=== PATIENT | female | born 1940 | race Caucasian/White ===

== ENCOUNTER → 2020-02-29 13:11 | Outpatient (BNVA) | payer MEDICARE, OTHER, SELFPAY | PROVIDERS: Family Provider Internal Medicine; PCP Internal Medicine; Referring Provider Internal Medicine; Visit Provider Dermatology | DX: Z85.820 Personal history of malignant melanoma of skin (principal); L57.0 Actinic keratosis; L82.1 Other seborrheic keratosis; L72.0 Epidermal cyst; F17.210 Nicotine dependence, cigarettes, uncomplicated | CPT/HCPCS: 17000; 17003; 99203 ==

== ENCOUNTER → 2020-04-19 11:24 | Outpatient (BNVA) | payer MEDICARE, OTHER, SELFPAY | PROVIDERS: Family Provider Internal Medicine; PCP Internal Medicine; Visit Provider Nurse Practitioner Family | DX: Z11.59 Encounter for screening for other viral diseases (principal); Z20.828 Contact with and (suspected) exposure to other viral communicable diseases | CPT/HCPCS: 87635 ==

== ENCOUNTER 2021-03-24 07:49 | Outpatient (CLI) | payer MEDICARE, OTHER, SELFPAY ==
--- NOTE | 2021-03-24 08:00 | USCV_ITS ---
Andrew Arlin Age: 80 Gender: F : 1940 Exam Date: 03/24/2021 08:13 Ordering Phys: Mary Sneed MD ([email or web address]) Technologist: [place] [facility] [place]: PVD BP: 140 / 80 HR: 67 Rhythm: Sinus Technical Quality: Adequate MEASUREMENTS (Male / Female) Normal Values 2D ECHO LV Diastolic Diameter PLAX 3.2 cm 4.2 - 5.9 / 3.9 - 5.3 cm LV Systolic Diameter PLAX 2.4 cm IVS Diastolic Thickness 1.1 cm 0.6 - 1.0 / 0.6 - 0.9 cm IVS Systolic Thickness 1.3 cm LVPW Diastolic Thickness 1.2 cm 0.6 - 1.0 / 0.6 - 0.9 cm LVPW Systolic Thickness 1.3 cm LVOT Diameter 2.1 cm LV Ejection Fraction 2D Teich 51.7 % LV Ejection Fraction MOD 2C 53.5 % LV Ejection Fraction 2C AL 54.0 % LA Diameter 3.5 cm LA Width 3.0 cm LA Height 3.8 cm RA Width 3.1 cm RA Height 3.3 cm Aorta at Sinotubular Diameter 2.8 cm DOPPLER AV Peak Velocity 174.0 cm/s LVOT Peak Velocity 102.0 cm/s AV Area Cont Eq vti 1.9 cm squared AV Area Cont Eq pk 2.0 cm squared MV Area PHT 5.0 cm squared Mitral E to A Ratio 0.5 MV E' Velocity 32.0 cm/s Mitral E to MV E' Ratio 12.3 Mitral E to LV E' Lateral Ratio 11.5 Mitral E to LV E' Septal Ratio 13.1 TR Peak Velocity 281.0 cm/s TR Peak Gradient 31.6 mmHg TV Peak E Velocity 64.0 cm/s Right Atrial Pressure 3.0 mmHg Pulmonary Artery Systolic Pressu 34.6 mmHg FINDINGS Left Ventricle Normal left ventricular cavity size. Low normal left ventricular systolic function. Left ventricular ejection fraction is estimated at 50-55 %. Grade I diastolic dysfunction (abnormal relaxation filling pattern), normal to mildly elevated filling pressures. Right Ventricle Normal right ventricular size and systolic function. Right ventricular systolic pressure 34.6 mmHg. Right Atrium Normal right atrial size. Right atrial pressure estimated at 3 mmHg. Left Atrium Mildly increased left atrial size. Mitral Valve Mild mitral annular calcification. Structurally normal mitral valve. No mitral valve stenosis. Trace mitral valve regurgitation. Aortic Valve Aortic valve not well visualized. No aortic valve stenosis. No aortic valve regurgitation. Tricuspid Valve Structurally normal tricuspid valve. No tricuspid valve stenosis. Mild tricuspid valve regurgitation. Pulmonic Valve Pulmonic valve not well visualized. Pericardium No pericardial effusion. Aorta Aorta not well visualized. CONCLUSIONS 1. Normal left ventricular cavity size. Low normal left ventricular systolic function. Left ventricular ejection fraction is estimated at 50-55 %. Grade I diastolic dysfunction (abnormal relaxation filling pattern), normal to mildly elevated filling pressures. 2. Normal right ventricular size and systolic function. 3. Mild tricuspid valve regurgitation. 4. Pulmonary artery pressure estimated at 35 mm Hg. 5. No prior similar studies to compare. Mary Sneed MD (Electronically Signed) Final Date: 28 March 2021 22:04 S
--- NOTE | 2021-03-24 08:45 | USCV_ITS ---
Arlin Morales Age: 80 Gender: F : 1940 Exam Date: 03/24/2021 08:04 Ordering Phys: Mary Sneed MD ([email or web address]) Technologist: Kwaku Phelps Sanitation Technician Exam Location: 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 Dr Eliana Greenwood MD [facility] (Electronically Signed) Final Date: 25 March 2021 07:43 S
== END 2021-03-24 07:50 | disposition home or self-care (01) ==
LOC: RAD 07:52
PROVIDERS: PCP Internal Medicine; Visit Provider Internal Medicine Cardiovascular Disease
DX: I73.9 Peripheral vascular disease, unspecified (principal); I10 Essential (primary) hypertension; I07.1 Rheumatic tricuspid insufficiency
CPT/HCPCS: 93306; 93923

== ENCOUNTER 2021-07-08 13:08 | Emergency (ER) | payer MEDICARE, OTHER, SELFPAY ==
[2021-07-08 13:18] VITALS: BP 179/101; PULSE 97; RESP 16; TEMP 36.9; O2SAT 97
--- NOTE | 2021-07-08 14:06 | XR_ITS ---
WS: [id number] XR chest 1V portable [id number] REASON FOR EXAM: chest pain FINDINGS: The chest is relatively unchanged compared to the examination of 12/11/2020. There is presumed eventration/elevation of the left hemidiaphragm with a large loop of distended colo n. Cannot exclude some form of diaphragmatic hernia. There is calcified granulomatous disease in both hemithoraces. No acute pulmonary parenchymal or pleural abnormality is identified. 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 No acute chest abnormality is identified.
--- NOTE | 2021-07-08 14:06 | ECG_ITS ---
[facility] Test Date: 2021-07-08 Pat Name: Arlin Morales Department: Room: Gender: Female Computing Tutor: : 1940 Requested By: Flaquita Doyle Order Number: [id number] Carrizales MD: Mary Sneed M.D. Measurements Intervals [place] Rate: 95 P: 66 MO: 159 QRS: 12 QRSD: 90 T: 80 QT: 330 QTc: 416 Interpretive Statements SINUS RHYTHM NONSPECIFIC T-WAVE ABNORMALITY Compared to ECG 03/25/2019 17:34:07 Sinus tachycardia no longer present Ventricular premature complex(es) no longer present Incomplete right bundle-branch block no longer present T-wave abnormality still present Electronically Signed On 07-08-2021 17:08:10 MOTOR EXPERT by Mary Sneed M.D. [id number]
[2021-07-08 15:18] VITALS: BP 153/80; PULSE 68; RESP 18; O2SAT 94
[2021-07-08 15:22] LABS: Basophils % 0.4 %; Eosinophils % 0.3 %; Hematocrit 43.4 % (37.0-47.0); Hemoglobin 14.1 g/dL (11.5-15.3); Lymphocytes # 1.2 10^3/uL (0.8-4.8); Lymphocytes % 18.3 %; Mean Corpuscular HGB Conc 32.5 g/dL (30.0-36.0); Mean Corpuscular Hemoglobin 30.4 pg (28.0-34.0); Mean Corpuscular Volume 93.5 fl (81-99); Mean Platelet Volume 9.9 fL (7.4-10.4); Monocytes # 0.5 10^3/uL (0.2-0.9); Neutrophils # 4.96 10^3/uL (1.8-7.7); Neutrophils % 73.7 %; Nucleated Red Blood Cells % 0 %; Platelet Count 254 10^3/cmm (130-400); Red Blood Count 4.64 10^6/uL (4.1-5.3); White Blood Count 6.7 10^3/uL (4.0-10.0)
--- NOTE | 2021-07-08 15:39 | ED_ITS ---
Documented by User: Manuel Negron DO 07/09/21 10:37 HPI - Chest Pain General: Chief Complaint: Chest Pain Stated Complaint: CP Time Seen by Provider: 07/08/21 15:23 History of Present Illness: 80-year-old female presents emergency room complaining of chest pain left side of her chest been going on for last couple days not getting better or worse usually she states it subsides with rest. No radiation of the pain no shortness of breath no diaphoresis MD complaint: chest pain Pertinent past history: coronary artery disease and prior DC Onset (ago): day(s) Timing of current episode: episodic Prior episodes: Yes Onset: during exertion Pain location: substernal and left chest Pain radiation: left arm Severity: mild Quality: aching and heaviness Relieving factors: rest Exacerbating factors: exertion Associated symptoms: Reports diaphoresis and dyspnea; Deny abdominal pain, fever(s), leg edema, nausea, palpitations, sense of impending doom, syncope or vomiting Treatment prior to arrival: none Review of Systems 2 Const: Reports: diaphoresis; Denies: fever(s) ENMT: Denies: throat pain, ear or mastoid pain, nasal discharge or nasal congestion Card: Denies: palpitations or syncope Resp: Reports: dyspnea GI: Denies: abdominal pain, nausea or vomiting : Denies: flank pain, difficulty voiding, dysuria, urinary frequency or urinary urgency Skin/Breast: Denies: rash or pruritus PFSH ED PFSH: Medical History ASHD (arteriosclerotic heart disease) Chronic pain COPD (chronic obstructive pulmonary disease) Diaphragmatic hernia Elevated diaphragm Essential hypertension Glucose intolerance History of malignant melanoma History of nonmelanoma skin cancer Hypothyroidism Myocardial infarction PAD (peripheral artery disease) Smoker Surgical History S/P angioplasty with stent Family History Sister Diabetes CAD (coronary artery disease) Hypertension Brother CAD (coronary artery disease) Hypertension Social History Smoking and tobacco status: current every day smoker cigarettes Packs smoked per day: 0.5 Alcohol intake: never Lives independently: Yes Household members: children Marital status: / service: No Current occupational status: retired Current gender identity: Female Physical Exam Const: COMMON NORMALS: no acute distress GENERAL APPEARANCE: cooperative and comfortable ORIENTATION/CONSCIOUSNESS: Yes awake, Yes oriented to person, Yes oriented to place and Yes oriented to time HENMT: COMMON NORMALS: normocephalic, atraumatic and hearing grossly normal bilaterally HEAD & SCALP: normocephalic and atraumatic Neck/C-Spine: COMMON NORMALS: no JVD Resp: COMMON NORMALS: normal respiratory effort, No retractions, No use of accessory muscles and clear to auscultation bilaterally AUSCULTATION: clear to auscultation bilaterally Cardio: COMMON NORMALS: no JVD, regular rate, regular rhythm and No murmurs present (Cardio) RATE: regular rate RHYTHM: regular rhythm GI: COMMON NORMALS: Soft to palpation and No hepatosplenomegaly present AUSCULTATION: Yes normoactive bowel sounds PALPATION: Yes Soft to palpation, No Tenderness to palpation present (GI), No Guarding due to palpation present (GI) and Yes No hepatosplenomegaly present Extremity: COMMON NORMALS: normal to inspection, capillary refill normal, no clubbing, cyanosis or edema, no calf tenderness and no pedal edema Neuro: SENSORIUM/ORIENTATION: Yes oriented to person, Yes oriented to place and Yes oriented to time Skin: COMMON NORMALS: no rashes or lesions noted GENERAL SKIN EXAM: no rashes or lesions noted Course Vital Signs: Vital signs: Vital Signs Temperature 98.4 F 07/08/21 13:18 Pulse Rate 68 07/08/21 18:09 Respiratory Rate 20 H 07/08/21 18:09 Blood Pressure 158/82 07/08/21 19:28 Pulse Oximetry 95 07/08/21 18:09 MDM - Chest Pain Medical Decision Making Care signed out to Dr. Tobin at change of shift. See his final notes for diagnosis and disposition. Patient presents for chest pain took her over from Dr. Ray repeat troponin here is negative she feels much improved EKGs here are normal she stable for discharge is to follow-up with PCP and return if worsening. 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 No acute chest abnormality is identified. Laboratory Results WBC 6.7 10^3/uL (4.0-10.0) 07/08/21 15:15 RBC 4.64 10^6/uL (4.1-5.3) 07/08/21 15:15 Hgb 14.1 g/dL (11.5-15.3) 07/08/21 15:15 Hct 43.4 % (37.0-47.0) 07/08/21 15:15 MCV 93.5 fl (81-99) 07/08/21 15:15 MCH 30.4 pg (28.0-34.0) 07/08/21 15:15 MCHC 32.5 g/dL (30.0-36.0) 07/08/21 15:15 RDW 13.0 % (12.1-15.1) 07/08/21 15:15 Plt Count 254 10^3/cmm (130-400) 07/08/21 15:15 MPV 9.9 fL (7.4-10.4) 07/08/21 15:15 Neut % (Auto) 73.7 % 07/08/21 15:15 Lymph % (Auto) 18.3 % 07/08/21 15:15 Grand % (Auto) 7.0 % 07/08/21 15:15 Eos % (Auto) 0.3 % 07/08/21 15:15 Baso % (Auto) 0.4 % 07/08/21 15:15 Neut # (Auto) 4.96 10^3/uL (1.8-7.7) 07/08/21 15:15 Lymph # (Auto) 1.2 10^3/uL (0.8-4.8) 07/08/21 15:15 Grand # (Auto) 0.5 10^3/uL (0.2-0.9) 07/08/21 15:15 Eos # (Auto) 0.0 10^3/uL (0.0-0.8) 07/08/21 15:15 Baso # (Auto) 0.0 10^3/uL (0.0-0.1) 07/08/21 15:15 Nucleated RBC % (auto) 0 % 07/08/21 15:15 Nucleated RBCs # 0.0 /100WBC 07/08/21 15:15 Sodium 137 mmol/L (136-145) 07/08/21 16:15 Potassium 4.2 mmol/L (3.5-5.1) 07/08/21 16:15 Chloride 103 mmol/L (98-107) 07/08/21 16:15 Carbon Dioxide 26 mmol/L (22-29) 07/08/21 16:15 Anion Gap 12.2 (5-19) 07/08/21 16:15 BUN 10 mg/dL (8-23) 07/08/21 16:15 Creatinine 0.6 mg/dL (0.5-0.9) 07/08/21 16:15 GFR Calculation Not Reportable 07/08/21 16:15 Glucose 109 mg/dL (65-115) 07/08/21 16:15 Calculated Osmolality 284 mOsm/kg (285-295) L 07/08/21 16:15 Calcium 8.7 mg/dL (8.5-10.5) 07/08/21 16:15 Total Bilirubin 0.3 mg/dL (0.15-1.2) 07/08/21 16:15 AST 13 U/L (0-32) 07/08/21 16:15 ALT 9 U/L (0-33) 07/08/21 16:15 Alkaline Phosphatase 68 IU/L (35-105) 07/08/21 16:15 Troponin T Baseline 15 ng/L (0-10) H 07/08/21 16:15 Troponin T 120 Minute 9.31 ng/L (0-10) 07/08/21 18:19 Delta Troponin T TNP 07/08/21 18:19 Total Protein 5.9 g/dL (6.6-8.7) L 07/08/21 16:15 Albumin 4.1 g/dL (3.5-5.2) 07/08/21 16:15 Globulin 1.8 g/dL (1.3-4.6) 07/08/21 16:15 Lipase 29 U/L (13-60) 07/08/21 16:15 Discharge Plan Discharge Patient Disposition: Home Clinical Impression: Chest pain Qualifiers: Chest pain type: unspecified Qualified Code(s): R07.9 - Chest pain, unspecified Condition: Stable Prescriptions: No Action cholecalciferol (vitamin D3) 400 unit capsule 400 unit PO QDAY 0RF aspirin [Adult Low Dose Aspirin] 81 mg tablet,delayed release (DR/EC) 81 mg PO QDAY 0RF docusate sodium [Colace] 100 mg capsule 100 mg PO QDAY 0RF amlodipine 5 mg tablet 5 mg PO QDAY 0RF albuterol sulfate [ProAir HFA] 90 mcg/actuation HFA aerosol inhaler 2 puff INHALATION Q6H PRN0RF nitroglycerin [Nitrostat] 0.4 mg tablet, sublingual 0.4 mg SUBLINGUAL Q5M PRN0RF simvastatin [Zocor] 20 mg tablet 20 mg PO QDAY 0RF metoprolol tartrate 25 mg tablet 12.5 mg PO BID 0RF melatonin 5 mg tablet 5 mg PO .HS PRN0RF levothyroxine 75 mcg capsule 75 mcg PO QDAY 0RF acetaminophen [Tylenol 8 Hour] 650 mg tablet extended release 650 mg PO Q8H 0RF lisinopril 20 mg tablet 20 mg PO DAILY 0RF Discharge Orders: Discharge ED (Routine); Ordered 07/08/21 Ordered By: Andrea Tobin Referrals: Horace Irene DO [Primary Care Provider] - 1-3 days Discharge Diet: Advance as tolerated Discharge Activity: Resume usual activity Patient Instructions: Chest Pain (ED) Coding Level of Care Code ED Property Utilization Officer for Chg Fwd Exam Comprehensive Documented by User: Andrea Tobin MD 07/08/21 19:12 HPI - Chest Pain General: Chief Complaint: Chest Pain Stated Complaint: CP Time Seen by Provider: 07/08/21 15:23 PFSH ED PFSH: Medical History ASHD (arteriosclerotic heart disease) Chronic pain COPD (chronic obstructive pulmonary disease) Diaphragmatic hernia Elevated diaphragm Essential hypertension Glucose intolerance History of malignant melanoma History of nonmelanoma skin cancer Hypothyroidism Myocardial infarction PAD (peripheral artery disease) Smoker Surgical History S/P angioplasty with stent Family History Sister Diabetes CAD (coronary artery disease) Hypertension Brother CAD (coronary artery disease) Hypertension Social History Smoking and tobacco status: current every day smoker cigarettes Packs smoked per day: 0.5 Alcohol intake: never Lives independently: Yes Household members: children Marital status: / service: No Current occupational status: retired Current gender identity: Female Course Vital Signs: Vital signs: Vital Signs Temperature 98.4 F 07/08/21 13:18 Pulse Rate 68 07/08/21 18:09 Respiratory Rate 20 H 07/08/21 18:09 Blood Pressure 158/82 07/08/21 19:28 Pulse Oximetry 95 07/08/21 18:09 MDM - Chest Pain Medical Decision Making Patient presents for chest pain took her over from Dr. Ray repeat troponin h ere is negative she feels much improved EKGs here are normal she stable for discharge is to follow-up with PCP and return if worsening. Lab Data : 07/08/21 15:15 07/08/21 16:15 Radiology Impressions Chest X-Ray 07/08/21 14:06
[2021-07-08 15:57] VITALS: BP 152/77; PULSE 69; RESP 18; O2SAT 92
--- NOTE | 2021-07-08 15:58 | PC.NURSE ---
NURSE ENTERED PATIENT ROOM. PATIENT RESTING IN BED COMFORTABLY.
--- NOTE | 2021-07-08 16:06 | ECG_ITS ---
[facility] Test Date: 2021-07-08 Pat Name: Arlin Morales Department: Room: Gender: Female Registered Nurse Behavioral Health: : 1940 Requested By: Flaquita Doyle Order Number: [id number] Sofie MD: Mary Sneed M.D. Measurements Intervals [place] Rate: 81 P: 61 MD: 170 QRS: 35 QRSD: 90 T: 77 QT: 355 QTc: 412 Interpretive Statements SINUS RHYTHM NONSPECIFIC T-WAVE ABNORMALITY Compared to ECG 07/08/2021 13:16:27 No significant changes Electronically Signed On 07-08-2021 17:10:51 LAB INTERN by Mary Sneed M.D. [id number]
[2021-07-08 16:35] VITALS: BP 148/68; PULSE 38; RESP 18; O2SAT 94
[2021-07-08 16:44] LABS: Alanine Aminotransferase 9 U/L (0-33); Albumin Level 4.1 g/dL (3.5-5.2); Alkaline Phosphatase 68 IU/L (35-105); Anion Gap 12.2 (5-19); Aspartate Amino Transferase 13 U/L (0-32); Blood Urea Nitrogen 10 mg/dL (8-23); Calcium 8.7 mg/dL (8.5-10.5); Carbon Dioxide 26 mmol/L (22-29); Chloride 103 mmol/L (98-107); Creatinine Clr Calc Pharmacy 43.2152; Globulin 1.8 g/dL (1.3-4.6); Glucose 109 mg/dL (65-115); Lipase 29 U/L (13-60); Osmolality Calculated 284 mOsm/kg (285-295); Potassium 4.2 mmol/L (3.5-5.1); Sodium 137 mmol/L (136-145); Total Bilirubin 0.3 mg/dL (0.15-1.2); Total Protein 5.9 g/dL (6.6-8.7)
[2021-07-08 16:49] LABS: Troponin(5th) Baseline 15 ng/L (0-10)
[2021-07-08 18:09] VITALS: BP 144/56; PULSE 68; RESP 20; O2SAT 95
[2021-07-08 18:53] LABS: Troponin 5 2HR 9.31 ng/L (0-10)
[2021-07-08 19:28] VITALS: BP 158/82
== END 2021-07-08 19:31 | disposition home or self-care (01) ==
PROVIDERS: Family Medicine; Physician Assistant; Emergency Provider Emergency Medicine; PCP Internal Medicine
DX: R07.9 Chest pain, unspecified (principal); Z79.82 Long term (current) use of aspirin; J44.9 Chronic obstructive pulmonary disease, unspecified; I10 Essential (primary) hypertension; I25.2 Old myocardial infarction; F17.210 Nicotine dependence, cigarettes, uncomplicated
CPT/HCPCS: 36415; 71045; 80053; 83690; 84484; 85025; 93005; 99283

== ENCOUNTER → 2022-01-13 13:44 | Outpatient (BNVA) | payer MEDICARE, OTHER, SELFPAY | PROVIDERS: PCP Internal Medicine; Visit Provider Internal Medicine Cardiovascular Disease | DX: I25.10 Atherosclerotic heart disease of native coronary artery without angina pectoris (principal); I10 Essential (primary) hypertension; F17.210 Nicotine dependence, cigarettes, uncomplicated | CPT/HCPCS: 99214 ==

== ENCOUNTER → 2022-10-29 13:58 | Outpatient (BNVA) | payer MEDICARE, OTHER, SELFPAY | PROVIDERS: PCP Internal Medicine; Visit Provider Internal Medicine Cardiovascular Disease | DX: I25.10 Atherosclerotic heart disease of native coronary artery without angina pectoris (principal); I10 Essential (primary) hypertension; I73.9 Peripheral vascular disease, unspecified; F17.210 Nicotine dependence, cigarettes, uncomplicated; J43.1 Panlobular emphysema | CPT/HCPCS: 99214 ==

== ENCOUNTER → 2022-11-18 13:21 | Outpatient (BNVA) | payer MEDICARE, OTHER, SELFPAY | PROVIDERS: PCP Internal Medicine; Visit Provider Dermatology | DX: L57.0 Actinic keratosis (principal); L81.4 Other melanin hyperpigmentation; L82.1 Other seborrheic keratosis; L57.8 Other skin changes due to chronic exposure to nonionizing radiation; Z85.828 Personal history of other malignant neoplasm of skin; Z72.0 Tobacco use | CPT/HCPCS: 17000; 17003; 99213 ==

== ENCOUNTER → 2023-08-23 14:48 | Outpatient (BNVA) | payer MEDICARE, OTHER, SELFPAY | PROVIDERS: PCP Internal Medicine; Visit Provider Dermatology | DX: L57.0 Actinic keratosis (principal); L81.4 Other melanin hyperpigmentation; L57.8 Other skin changes due to chronic exposure to nonionizing radiation; D18.01 Hemangioma of skin and subcutaneous tissue; Z85.828 Personal history of other malignant neoplasm of skin | CPT/HCPCS: 17000; 99214 ==

== ENCOUNTER → 2023-08-25 10:32 | Outpatient (BNVA) | payer MEDICARE, OTHER, SELFPAY | PROVIDERS: PCP Internal Medicine; Visit Provider Nurse Practitioner Family | DX: I10 Essential (primary) hypertension (principal); I25.10 Atherosclerotic heart disease of native coronary artery without angina pectoris; I73.9 Peripheral vascular disease, unspecified; F17.210 Nicotine dependence, cigarettes, uncomplicated | CPT/HCPCS: 99214 ==

== ENCOUNTER → 2024-04-05 10:45 | Outpatient (BNVA) | payer MEDICARE, OTHER, SELFPAY | PROVIDERS: PCP Internal Medicine; Visit Provider Nurse Practitioner Family | DX: D48.5 Neoplasm of uncertain behavior of skin (principal); L57.0 Actinic keratosis; F17.200 Nicotine dependence, unspecified, uncomplicated; L81.4 Other melanin hyperpigmentation; L57.8 Other skin changes due to chronic exposure to nonionizing radiation | CPT/HCPCS: 17004; 99214 ==

== ENCOUNTER → 2024-05-11 12:32 | Outpatient (BNVA) | payer MEDICARE, OTHER, SELFPAY | PROVIDERS: PCP Internal Medicine; Visit Provider Internal Medicine | DX: I25.10 Atherosclerotic heart disease of native coronary artery without angina pectoris (principal); I10 Essential (primary) hypertension; I73.9 Peripheral vascular disease, unspecified; J43.1 Panlobular emphysema; F17.210 Nicotine dependence, cigarettes, uncomplicated | CPT/HCPCS: 99214 ==

== ENCOUNTER 2024-08-28 17:26 | Emergency (ER) | payer MEDICARE, OTHER, SELFPAY ==
[2024-08-28 17:29] VITALS: BP 158/80; PULSE 84; TEMP 36.7; O2SAT 92; BMI 15.9
--- NOTE | 2024-08-28 19:37 | XRR_ITS ---
PROCEDURE INFORMATION: Exam: XR Lumbosacral Spine Exam date and time: 08/28/2024 7:49 PM Age: 83 years old Clinical indication: Low back pain TECHNIQUE: Imaging protocol: Radiologic exam of the lumbosacral spine. Views: 2 or 3 views. COMPARISON: CR XR lumbar spine min 4V [id number] 11/27/2021 2:37 PM FINDINGS: Bones/joints: Multilevel compression fractures throughout the visualized thoracic and lumbar spine with moderate to severe largely posterior disc space narrowing and productive degenerative endplate changes, similar to prior exam. Lumbar spine dextroscoliosis similar to prior exam. Soft tissues: Unremarkable. Gastrointestinal tract: Moderate to severe constipation. Vasculature: Aortic atherosclerotic calcifications. XR/XR lumbar spine 2-3V* [id number] IMPRESSION: 1. Multilevel compression fractures throughout the visualized thoracic and lumbar spine with moderate to severe largely posterior disc space narrowing and productive degenerative endplate changes, similar to prior exam. 2. Lumbar spine dextroscoliosis similar to prior exam. 3. Aortic atherosclerotic calcifications. 4. Moderate to severe constipation.
--- NOTE | 2024-08-28 19:37 | XRR_ITS ---
PROCEDURE INFORMATION: Exam: XR Chest Exam date and time: 08/28/2024 7:42 PM Age: 83 years old Clinical indication: Other: Hypertension; Additional info: HTN TECHNIQUE: Imaging protocol: Radiologic exam of the chest. Views: 1 view. COMPARISON: CR XR chest 1V portable [id number] 07/08/2021 2:16 PM FINDINGS: Lungs: Emphysematous changes. Left lower lobe atelectasis. Pleural spaces: Unremarkable. No pleural effusion. No pneumothorax. Heart/Mediastinum: Unremarkable. No cardiomegaly. Diaphragm: Large left diaphragmatic eventration similar to prior exam. Bones/joints: Unremarkable. XR/XR chest 1V portable [id number] IMPRESSION: 1. Large left diaphragmatic eventration similar to prior exam. 2. Emphysematous changes. 3. Left lower lobe atelectasis.
--- NOTE | 2024-08-28 19:39 | XRR_ITS ---
PROCEDURE INFORMATION: Exam: XR Thoracic Spine Exam date and time: 08/28/2024 7:43 PM Age: 83 years old Clinical indication: Pain in thoracic spine; Additional info: Back pain TECHNIQUE: Imaging protocol: Radiologic exam of the thoracic spine. Views: 3 views. COMPARISON: CR (CHEST, ) 08/28/2024 7:42 PM FINDINGS: Bones/joints: Midthoracic spine demonstrates several compression fractures without retropulsion of bony fragments, not well evaluated in this study, consider correlation with the CT. Lumbar spine dextroscoliosis. Soft tissues: Unremarkable. Lungs: Please refer to same day chest x-ray for findings in the lung quinonez. XR/XR thoracic spine 3V* [id number] IMPRESSION: 1. Midthoracic spine demonstrates several compression fractures without retropulsion of bony fragments, not well evaluated in this study, consider correlation with the CT. 2. Lumbar spine dextroscoliosis. 3. Please refer to same day chest x-ray for findings in the lung quinonez.
--- NOTE | 2024-08-28 19:40 | W.ED.BACK ---
HPI - Back Pain/Injury General: Chief Complaint: Back Pain/Injury Stated Complaint: back and rib pain Time Seen by Provider: 08/28/24 19:30 Source: patient Mode of arrival: ambulatory Limitations: no limitations History of Present Illness: 83-year-old female states that she had a history of some chronic back pain states she went outside today and was walking and twisted a hose and started having sharp pains in her right upper back that radiates around her right ribs she denies any chest pain states the pain is much worse with standing and movement and palpation and improved with rest she denies any falls or injuries Associated symptoms: Deny abdominal pain, chills, fever(s), nausea or vomiting Related Data Home Medications ?Medication ?Instructions ?Recorded ?Confirmed albuterol sulfate 90 mcg/actuation 2 puff inhalation Q6H PRN 06/27/19 05/11/24 aerosol inhaler (ProAir HFA) amlodipine 5 mg tablet 5 mg PO QDAY 06/27/19 05/11/24 aspirin 81 mg tablet,delayed 81 mg PO QDAY 06/27/19 05/11/24 release (Adult Low Dose Aspirin) cholecalciferol (vitamin D3) 10 400 unit PO QDAY 06/27/19 05/11/24 mcg (400 unit) capsule docusate sodium 100 mg capsule 100 mg PO QDAY 06/27/19 05/11/24 (Colace) simvastatin 20 mg tablet (Zocor) 20 mg PO QDAY 06/27/19 05/11/24 levothyroxine 75 mcg capsule 75 mcg PO QDAY 10/24/20 05/11/24 lisinopril 20 mg tablet 20 mg PO DAILY 01/09/21 05/11/24 acetaminophen 650 mg 650 mg PO Q8H PRN 01/13/22 05/11/24 tablet,extended release (Tylenol 8 Hour) hydrocodone 5 mg-acetaminophen 325 1 tab PO Q8H PRN 01/13/22 05/11/24 mg tablet vit A 7,160 unit-C 113 mg-E 100 1 tab PO BID 01/13/22 05/11/24 [id number] tablet,delayed rel. (ICaps AREDS) propylene glycol 0.6 % eye drops 1 drp ophthalmic (eye) DAILY PRN 05/25/23 12/05/24 (Systane Balance) Previous Rx's ?Medication ?Instructions ?Recorded nitroglycerin 0.4 mg sublingual 0.4 mg sublingual Q5M PRN chest 07/14/21 tablet (Nitrostat) pain #25 tabs metoprolol tartrate 25 mg tablet 25 mg PO BID #180 tabs 11/26/22 naproxen 500 mg tablet (Naprosyn) 500 mg PO BID PRN pain #20 tabs 08/28/24 Allergies Allergy/AdvReac Type Severity Reaction Status Date / Time No Known Allergies Allergy Verified 08/28/24 17:34 Review of Systems Const: Denies: fever(s), chills, body aches or change in appetite ENMT: Denies: throat pain or dental pain Card: Denies: chest pain Resp: Denies: dyspnea GI: Denies: abdominal pain, nausea, vomiting or diarrhea Musc: Reports: back pain; Denies: neck pain Skin/Breast: Denies: rash Neuro: Denies: headache(s) PFSH ED PFSH: Medical History PAD (peripheral artery disease) History of malignant melanoma History of nonmelanoma skin cancer Elevated diaphragm Diaphragmatic hernia ASHD (arteriosclerotic heart disease) COPD (chronic obstructive pulmonary disease) Myocardial infarction Chronic pain Glucose intolerance Essential hypertension Hypothyroidism Smoker Surgical History S/P angioplasty with stent Family History Sister Diabetes CAD (coronary artery disease) Hypertension Brother CAD (coronary artery disease) Hypertension Social History Smoking and tobacco/nicotine status: current every day tobacco/nicotine user cigarettes Packs smoked per day: 0.5 Alcohol intake: never Substance/Drug Use: never Lives independently: Yes Household members: children Marital status: / service: No Current occupational status: retired Current gender identity: Female Physical Exam Const: COMMON NORMALS: no acute distress, patient oriented x3 and healthy appearing HENMT: COMMON NORMALS: normocephalic and atraumatic HEAD & SCALP: normocephalic and atraumatic Eye: COMMON NORMALS: Equal, round and reactive pupils present and EOMs intact bilaterally PUPIL: Yes Equal, round and reactive pupils present Neck/C-Spine: COMMON NORMALS: full ROM and supple Chest: COMMONS NORMALS: normal inspection of the chest and normal palpation of entire chest wall Resp: COMMON NORMALS: normal respiratory effort, No retractions, No use of accessory muscles and clear to auscultation bilaterally AUSCULTATION: clear to auscultation bilaterally Cardio: COMMON NORMALS: regular rate, regular rhythm and No murmurs present (Cardio) RATE: regular rate RHYTHM: regular rhythm GI: COMMON NORMALS: Normal to inspection, nondistended, normoactive bowel sounds present, Soft to palpation, non-tender and no masses PALPATION: Yes Soft to palpation Back/Pelvis: OTHER: Tenderness over right thoracic back right posterior ribs no midline tenderness no obvious deformity Extremity: COMMON NORMALS: normal to inspection and full ROM Neuro: COMMON NORMALS: patient oriented x3, moves all extremities and no focal motor deficits Psych: COMMON NORMALS: mental status grossly normal, Normal thought process present and cooperative THOUGHT PROCESS: Normal thought process present Skin: COMMON NORMALS: no rashes or lesions noted and no wounds GENERAL SKIN EXAM: no rashes or lesions noted Course Vital Signs: Vital signs: Vital Signs Temperature 98.0 F 08/28/24 17:29 Pulse Rate 82 08/28/24 20:00 Blood Pressure 153/82 08/28/24 20:00 Pulse Oximetry 95 08/28/24 20:00 Oxygen Delivery Me thod Room Air 08/28/24 17:29 MDM - Back Pain/Injury Medical Decision Making Patient presents here with back pain x-rays show fracture along with thoracic spine she states that she has had old fractures in the past he is a likely chronic and may be some acute or subacute she has no neurologic symptoms her pain is much improved here she is able ambulate we will get her follow-up she is return if worsening she understands agrees to plan. Medical Records I reviewed the patient's medical records. Labs Radiology Impressions Chest X-Ray 08/28/24 19:37 IMPRESSION: 1. Large left diaphragmatic eventration similar to prior exam. 2. Emphysematous changes. 3. Left lower lobe atelectasis. Lumbar Spine X-Ray 08/28/24 19:37 IMPRESSION: 1. Multilevel compression fractures throughout the visualized thoracic and lumbar spine with moderate to severe largely posterior disc space narrowing and productive degenerative endplate changes, similar to prior exam. 2. Lumbar spine dextroscoliosis similar to prior exam. 3. Aortic atherosclerotic calcifications. 4. Moderate to severe constipation. Thoracic Spine X-Ray 08/28/24 19:39 IMPRESSION: 1. Midthoracic spine demonstrates several compression fractures without retropulsion of bony fragments, not well evaluated in this study, consider correlation with the CT. 2. Lumbar spine dextroscoliosis. 3. Please refer to same day chest x-ray for findings in the lung quinonez. Laboratory Results Urine Color Yellow (Yellow) 08/28/24 20:18 Urine Appearance Clear (CLEAR) 08/28/24 20:18 Urine pH 7.0 (5-7) 08/28/24 20:18 Ur Specific [place] 1.007 (1.005-1.030) 08/28/24 20:18 Urine Protein Negative (Negative) 08/28/24 20:18 Urine Glucose (UA) Negative (Normal) 08/28/24 20:18 Urine Ketones 1+ (Negative) H 08/28/24 20:18 Urine Blood Negative (Negative) 08/28/24 20:18 Urine Nitrate Negative (Negative) 08/28/24 20:18 Urine Bilirubin Negative (Negative) 08/28/24 20:18 Urine Urobilinogen 0.2 mg/dL (Negative) 08/28/24 20:18 Ur Leukocyte Esterase Trace (Negative) A 08/28/24 20:18 Urine RBC 0-2 /hpf (0-2) 08/28/24 20:18 Urine WBC 0-5 /hpf (0-5) 08/28/24 20:18 Ur Squamous Epith Cells 0-5 /hpf (0-5) 08/28/24 20:18 Amorphous Sediment Not Reportable 08/28/24 20:18 Urine Bacteria None seen /hpf (NONE) 08/28/24 20:18 Hyaline Casts 0.40 /lpf 08/28/24 20:18 All radiology interpretation(s) finalized by discharge Discharge Plan Discharge Patient Disposition: Home Clinical Impression: Compression fracture of thoracic vertebra Condition: Stable Prescriptions: New naproxen [Naprosyn] 500 mg tablet 500 mg PO BID PRN (Reason: pain) Qty: 20 0RF No Action cholecalciferol (vitamin D3) 400 unit capsule 400 unit PO QDAY aspirin [Adult Low Dose Aspirin] 81 mg tablet,delayed release (DR/EC) 81 mg PO QDAY docusate sodium [Colace] 100 mg capsule 100 mg PO QDAY amlodipine 5 mg tablet 5 mg PO QDAY albuterol sulfate [ProAir HFA] 90 mcg/actuation HFA aerosol inhaler 2 puff INHALATION Q6H PRN simvastatin [Zocor] 20 mg tablet 20 mg PO QDAY levothyroxine 75 mcg capsule 75 mcg PO QDAY acetaminophen [Tylenol 8 Hour] 650 mg tablet extended release 650 mg PO Q8H PRN ICaps AREDS 7,160-113-100 [id number]-vh-[id number] tablet,delayed release (DR/EC) 1 tab PO BID hydrocodone-acetaminophen 5-325 mg tablet 1 tab PO Q8H PRN lisinopril 20 mg tablet 20 mg PO DAILY nitroglycerin [Nitrostat] 0.4 mg tablet, sublingual 0.4 mg SUBLINGUAL Q5M PRN (Reason: chest pain) Qty: 25 6RF Systane Balance 0.6 % drops 1 drp ophthalmic (eye) DAILY PRN metoprolol tartrate 25 mg tablet 25 mg PO BID Qty: 180 2RF Discharge Orders: Discharge ED (Routine); Ordered 08/28/24 Ordered By: Andrea Tobin Referrals: Osmar Lo MD [Primary Care Provider] - 4-7 days Discharge Diet: Advance as tolerated Discharge Activity: Resume usual activity Patient Instructions: Thoracolumbar Fracture (ED) Print Language: American Coding Level of Care Code ED Fish Fryer for Anh Ramirez
[2024-08-28] MEDS: HYDROcodone-acetaminophen 5-325 mg Tablet 1 TAB PO (19:51)
[2024-08-28 20:00] VITALS: BP 153/82; PULSE 82; O2SAT 95
[2024-08-28 20:25] LABS: Bilirubin Urine Negative (Negative); Blood Urine Negative (Negative); Glucose Urine UA Negative (Normal); Ketones Urine 1+ (Negative); Leukocyte Esterase Urine Trace (Negative); Nitrate Urine Negative (Negative); Protein Urine Negative (Negative); Specific Gravity, Urine 1.007 (1.005-1.030); Urine Appearance Clear (CLEAR); Urine Color Yellow (Yellow); Urobilinogen Urine 0.2 mg/dL (Negative)
[2024-08-28 20:27] LABS: Add Urine Microscopic? YES; Bacteria Urine None Seen /hpf; RBC Urine 0-2 /hpf (0-2); Squamous Epithelial Cell Urine 0-5 /hpf (0-5); WBC Urine 0-5 /hpf (0-5)
[2024-08-28 21:47] VITALS: BP 138/74; PULSE 59; O2SAT 91
--- NOTE | 2024-08-30 10:43 | PC.SOCIAL ---
Orthopedics F/u Referral message sent to ortho clinic at this time.
== END 2024-08-28 21:48 | disposition home or self-care (01) ==
PROVIDERS: Emergency Provider Emergency Medicine; PCP Family Medicine
DX: S22.000A Wedge compression fracture of unspecified thoracic vertebra, initial encounter for closed fracture (principal); Z79.82 Long term (current) use of aspirin; F17.210 Nicotine dependence, cigarettes, uncomplicated; J44.9 Chronic obstructive pulmonary disease, unspecified; I10 Essential (primary) hypertension; Z85.820 Personal history of malignant melanoma of skin; Z85.828 Personal history of other malignant neoplasm of skin; X58.XXXA Exposure to other specified factors, initial encounter
CPT/HCPCS: 71045; 72072; 72100; 81001; 99284; J9999

== ENCOUNTER → 2024-09-07 12:42 | Outpatient (BNVA) | payer MEDICARE, OTHER, SELFPAY | PROVIDERS: PCP Family Medicine; Visit Provider Orthopaedic Surgery | DX: M54.9 Dorsalgia, unspecified (principal); S22.000A Wedge compression fracture of unspecified thoracic vertebra, initial encounter for closed fracture; X58.XXXA Exposure to other specified factors, initial encounter | CPT/HCPCS: 72072; 99203 ==

== ENCOUNTER 2024-09-11 14:06 | Outpatient (CLI) | payer MEDICARE, OTHER, SELFPAY ==
--- NOTE | 2024-09-11 14:30 | MR_ITS ---
WS: [id number] MRI THORACIC SPINE noncontrast HISTORY: thoracic fx COMPARISON: Chest CT 01/19/2013 TECHNIQUE: Multiplanar sequences are performed in sagittal and axial planes. Marked increase in thoracic kyphosis due to multiple compression fractures of variable ages. T10: Acute marrow edema throughout a large portion of the T10 vertebral body with 20% loss of height. Buckling of the posterior cortex. Retrolisthesis of the posterior inferior vertebral body by 5 mm. Partial effacement of CSF but no contact on the cord. Small amount of edema extends into the posterior elements. T9-10 LEFT nerve root sleeve diverticulum. Larger nerve root sleeve diverticulum on the RIGHT at T10-11. Mild bilateral foraminal stenosis and central stenosis at T10-11. T1-T4: There are few scattered endplate hyperintensities which are probably not acute fractures. T5; biconcave severe fracture with minimal increased signal in the inferior endplate. T6: Increased T2 signal along this anterior endplate may be a hemangioma. T7: Biconcave severe fracture with no retropulsion. T8 and T9: Increased T2 signal within the anterior endplates. May be related to spondylosis. No definite acute fracture. T11 and T12: Mild chronic anterior wedging of T11. Scattered T2 foci but no acute fracture. Numerous low signal nodules within the vertebral bodies superimposed on the compression fractures. Metastatic disease is not completely excluded. LEFT renal cyst. Large hiatal hernia. MR/MR thoracic spin wo con* [id number] IMPRESSION: 1. Numerous thoracic spine compression fractures of various ages along with ma rked increase in thoracic kyphosis. Significant progression of compression frac tures and kyphosis since 2012. 2. T10 acute compression fracture by approximately 20%. Retrolisthesis of the posterior inferior endplate by 5 mm resulting in mild central and bilateral for aminal stenosis at T10-11. 3. Additional compression fractures do not appear to be acute. There are signa l abnormalities within several of the vertebral bodies which could be subtle ar eas of edema. These are low signal on T1 and increased on T2 and FLAIR. Metasta tic lesions would appear similar. Consider follow-up MRI thoracic spine with wi th and without contrast.
== END 2024-09-11 14:07 | disposition home or self-care (01) ==
LOC: RAD 14:07
PROVIDERS: PCP Family Medicine; Visit Provider Orthopaedic Surgery
DX: S22.070A Wedge compression fracture of T9-T10 vertebra, initial encounter for closed fracture (principal); S22.058A Other fracture of T5-T6 vertebra, initial encounter for closed fracture; S22.068A Other fracture of T7-T8 thoracic vertebra, initial encounter for closed fracture; X58.XXXA Exposure to other specified factors, initial encounter; M40.294 Other kyphosis, thoracic region; M43.14 Spondylolisthesis, thoracic region; M48.04 Spinal stenosis, thoracic region; R93.7 Abnormal findings on diagnostic imaging of other parts of musculoskeletal system; G54.3 Thoracic root disorders, not elsewhere classified; N28.1 Cyst of kidney, acquired; K44.9 Diaphragmatic hernia without obstruction or gangrene; S22.080D Wedge compression fracture of T11-T12 vertebra, subsequent encounter for fracture with routine healing; X58.XXXD Exposure to other specified factors, subsequent encounter
CPT/HCPCS: 72146

== ENCOUNTER 2024-09-12 10:26 | Inpatient (IN) | payer MEDICARE, OTHER, SELFPAY ==
[2024-09-12] VITALS (21 sets, daily range): BP systolic 98–173; BP diastolic 61–96; PULSE 66–91; RESP 10–22; TEMP 36.1–36.6; O2SAT 87–99; BMI 15.5
--- NOTE | 2024-09-12 10:29 | XRR_ITS ---
PROCEDURE INFORMATION: Exam: XR Left Hip Exam date and time: 09/12/2024 10:40 AM Age: 83 years old Clinical indication: Injury or trauma; Fall; Blunt trauma (contusions or hematomas); Left; Hip TECHNIQUE: Imaging protocol: Radiologic exam of the left hip. Views: 2 or 3 views hip with pelvis when performed. COMPARISON: CR (PELVIS, ) 08/28/2024 7:49 PM FINDINGS: Bones/joints: Acute mildly comminuted intertrochanteric fracture of the left femur. Mild apex anterior angulation, but no significant displacement. Normal femoroacetabular alignment. Soft tissues: Unremarkable. XR/XR hip LT 2-3V wo/w pel* [id number] IMPRESSION: Acute mildly comminuted intertrochanteric fracture of the left femur.
--- NOTE | 2024-09-12 11:12 | XR_ITS ---
WS: [id number] Exam: XR chest 1V portable [id number] Date/Time of Exam: 09/12/2024 11:12 AM Reason For Exam: dyspnea/cough Comparison 08/28/2024. The lungs are clear. Large left-sided diaphragmatic hernia noted unchanged. Mild cardiac enlargement. The mediastinum is normal in contour for technique. No pleural effusion. Bony structures are intact. IMPRESSION1. No acute infiltrate identified. 2. Large left-sided diaphragmatic hernia, mild cardiac enlargement.
--- NOTE | 2024-09-12 11:16 | W.ED.FALL ---
HPI - Fall General: Chief Complaint: Fall Stated Complaint: fall - left leg pain Time Seen by Provider: 09/12/24 10:28 History of Present Illness: 83-year-old female who presents to the emergency room complaining of a left hip pain after a fall. Patient had a ground-level mechanical fall as she was stepping from her home to a garage. She had a cane and 1 hand coffee and the other tried to open the door slipped and fell landed against her left hip she is unable to bear weight or stand. She denies any other significant injuries she has a skin tear on her left elbow and her left rdz she has some ecchymotic areas she not strike her head did not lose consciousness no episodes of chest pain. Patient related she had breakfast this morning but later clarified with her for her breakfast is just coffee she had only about a half of a cup. Associated symptoms-after fall: Denies abdominal pain, chest pain or neck pain Related Data Home Medications ?Medication ?Instructions ?Recorded ?Confirmed amlodipine 5 mg tablet 5 mg PO QAM 06/27/19 09/12/24 aspirin 81 mg tablet,delayed 81 mg PO QAM 06/27/19 09/12/24 release (Adult Low Dose Aspirin) cholecalciferol (vitamin D3) 10 400 unit PO QDAY 06/27/19 09/12/24 mcg (400 unit) capsule docusate sodium 100 mg capsule 100 mg PO QDAY 06/27/19 09/12/24 (Colace) simvastatin 20 mg tablet (Zocor) 20 mg PO QPM 06/27/19 09/12/24 lisinopril 20 mg tablet 20 mg PO DAILY 01/09/21 09/12/24 acetaminophen 650 mg 650 mg PO Q8H PRN Pain 01/13/22 09/12/24 tablet,extended release (Tylenol 8 Hour) hydrocodone 5 mg-acetaminophen 325 1 tab PO Q8H PRN Pain 01/13/22 09/12/24 mg tablet propylene glycol 0.6 % eye drops 1 drp ophthalmic (eye) DAILY PRN 10/29/22 09/12/24 (Systane Balance) Dry Eyes albuterol sulfate 90 mcg/actuation 2 puff inhalation Q6H PRN 09/12/24 09/12/24 aerosol inhaler Shortness Of Breath budesonide 160 mcg-glycopyr 9 2 inh inhalation BID 09/12/24 09/12/24 mcg-formot 4.8 mcg/actuation HFA inhaler (Breztri Aerosphere) levothyroxine 88 mcg tablet 88 mcg PO QAM 09/12/24 09/12/24 vit C 250 mg-vit E 90 mg-zinc 40 1 tab PO BID 09/12/24 09/12/24 mg-copper 1 wr-kzouwe-qryuwl capsule (PreserVision AREDS-2) Previous Rx's ?Medication ?Instructions ?Recorded nitroglycerin 0.4 mg sublingual 0.4 mg sublingual Q5M PRN chest 07/14/21 tablet (Nitrostat) pain #25 tabs metoprolol tartrate 25 mg tablet 25 mg PO BID #180 tabs 11/26/22 naproxen 500 mg tablet (Naprosyn) 500 mg PO BID PRN pain #20 tabs 08/28/24 Allergies Allergy/AdvReac Type Severity Reaction Status Date / Time No Known Allergies Allergy Verified 09/07/24 13:00 Review of Systems Const: Denies: fever(s) or chills Card: Denies: chest pain Resp: Denies: dyspnea GI: Denies: abdominal pain : Denies: dysuria, urinary frequency or urinary urgency Musc: Denies: neck pain or back pain Skin/Breast: Denies: rash PFSH ED PFSH: Medical History PAD (peripheral artery disease) History of malignant melanoma History of nonmelanoma skin cancer Elevated diaphragm Diaphragmatic hernia ASHD (arteriosclerotic heart disease) COPD (chronic obstructive pulmonary disease) Myocardial infarction Chronic pain Glucose intolerance Essential hypertension Hypothyroidism Smoker Surgical History S/P angioplasty with stent Family History Sister Diabetes CAD (coronary artery disease) Hypertension Brother CAD (coronary artery disease) Hypertension Social History Smoking and tobacco/nicotine status: current every day tobacco/nicotine user cigarettes Packs smoked per day: 0.5 Alcohol intake: never Substance/Drug Use: never Lives independently: Yes Household members: children Marital status: / service: No Current occupational status: retired Current gender identity: Female Physical Exam Const: COMMON NORMALS: no acute distress GENERAL APPEARANCE: cooperative and comfortable ORIENTATION/CONSCIOUSNESS: Yes awake, Yes oriented to person, Yes oriented to place and Yes oriented to time HENMT: COMMON NORMALS: normocephalic, atraumatic and hearing grossly normal bilaterally HEAD & SCALP: normocephalic and atraumatic Resp: COMMON NORMALS: normal respiratory effort, No retractions, No use of accessory muscles and clear to auscultation bilaterally AUSCULTATION: clear to auscultation bilaterally Cardio: COMMON NORMALS: regular rate, regular rhythm and No murmurs present (Cardio) RATE: regular rate RHYTHM: regular rhythm GI: COMMON NORMALS: Soft to palpation and No hepatosplenomegaly present AUSCULTATION: Yes normoactive bowel sounds PALPATION: Yes Soft to palpation, No Tenderness to palpation present (GI), No Guarding due to palpation present (GI) and Yes No hepatosplenomegaly present Extremity: COMMON NORMALS: normal to inspection, capillary refill normal, no clubbing, cyanosis or edema, no calf tenderness and no pedal edema Neuro: SENSORIUM/ORIENTATION: Yes oriented to person, Yes oriented to place and Yes oriented to time Skin: COMMON NORMALS: no rashes or lesions noted GENERAL SKIN EXAM: no rashes or lesions noted Course Vital Signs: Vital signs: Vital Signs Temperature 97.9 F 09/12/24 10:31 Pulse Rate 73 09/12/24 10:31 Respiratory Rate 16 09/12/24 10:31 Blood Pressure 173/96 09/12/24 10:31 Pulse Oximetry 88 L 09/12/24 10:31 Oxygen Delivery Me thod Room Air 09/12/24 10:31 MDM - Fall Medical Decision Making Patient noted to chronically have sats at about 8089% when I talked to her further she at one time was on oxygen supplementation but then it is was taken off of it this was right after her heart attack. She not been on oxygen recently approximately a month ago she had some upper respiratory symptoms for the last 2 weeks she has not really had any significant symptoms. When placed on 2 L her oxygen saturation improved to the low 90s nearly immediately. Her potassium is low rechecking magnesium and supplement her potassium now. Contacted Dr. Doran and Dr. Orlando for admission. I did later call Dr. Doran back clarified with him that she only had a half a cup of coffee this morning. Woody has been placed she is requiring a little more pain medication. Admission orders have been written. Medical Records I reviewed the patient's medical records. Lab Data I reviewed the patient's lab results. 09/12/24 11:41 09/12/24 11:41 Radiology Impressions Hip/Pelvis X-Ray 09/12/24 10:29 IMPRESSION: Acute mildly comminuted intertrochanteric fracture of the left femur. Laboratory Results WBC 8.79 10^3/uL (3.29-11.43) 09/12/24 11:41 RBC 4.24 10^6/uL (3.85-5.65) 09/12/24 11:41 Hgb 13.10 g/dL (11.27-16.99) 09/12/24 11:41 Hct 40.7 % (36-47) 09/12/24 11:41 MCV 96.0 fl (85-98) 09/12/24 11:41 MCH 30.9 pg (27-33) 09/12/24 11:41 MCHC 32.2 g/dL (30-55) 09/12/24 11:41 RDW 13.8 % (12.1-15.1) 09/12/24 11:41 Plt Count 245 10^3/cmm (157-399) 09/12/24 11:41 MPV 9.3 fL (7.4-10.4) 09/12/24 11:41 Neut % (Auto) 81.3 % 09/12/24 11:41 Lymph % (Auto) 10.6 % 09/12/24 11:41 [place] % (Auto) 6.0 % 09/12/24 11:41 Eos % (Auto) 1.1 % 09/12/24 11:41 Baso % (Auto) 0.3 % 09/12/24 11:41 Neut # (Auto) 7.14 10^3/uL (1.8-7.7) 09/12/24 11:41 Lymph # (Auto) 0.9 10^3/uL (0.8-4.8) 09/12/24 11:41 [place] # (Auto) 0.5 10^3/uL (0.2-0.9) 09/12/24 11:41 Eos # (Auto) 0.1 10^3/uL (0.0-0.8) 09/12/24 11:41 Baso # (Auto) 0.0 10^3/uL (0.0-0.1) 09/12/24 11:41 Nucleated RBC % (auto) 0 % 09/12/24 11:41 Nucleated RBCs # 0.0 /100WBC 09/12/24 11:41 Sodium 140 mmol/L (136-145) 09/12/24 11:41 Potassium 2.9 mmol/L (3.5-5.1) L 09/12/24 11:41 Chloride 100 mmol/L (98-107) 09/12/24 11:41 Carbon Dioxide 28 mmol/L (22-29) 09/12/24 11:41 Anion Gap 14.9 (5-19) 09/12/24 11:41 BUN 17 mg/dL (8-23) 09/12/24 11:41 Creatinine 0.6 mg/dL (0.5-0.9) 09/12/24 11:41 GFR Calculation Not Reportable 09/12/24 11:41 Glucose 91 mg/dL (65-115) 09/12/24 11:41 Calculated Osmolality 291 mOsm/kg (285-295) 09/12/24 11:41 Calcium 9.0 mg/dL (8.5-10.5) 09/12/24 11:41 Total Bilirubin 0.4 mg/dL (0.15-1.2) 09/12/24 11:41 AST 17 U/L (0-32) 09/12/24 11:41 ALT 13 U/L (0-33) 09/12/24 11:41 Alkaline Phosphatase 86 U/L (35-105) 09/12/24 11:41 Total Protein 6.9 g/dL (6.6-8.7) 09/12/24 11:41 Albumin 4.0 g/dL (3.5-5.2) 09/12/24 11:41 Globulin 2.9 g/dL (1.3-4.6) 09/12/24 11:41 All radiology interpretation(s) finalized by discharge Discharge Plan Discharge Patient Disposition: Admitted As Inpatient Admit Provider: Halytskyy,Matthew Clinical Impression: Closed intertrochanteric fracture of left hip, Compression fracture, Smoker, COPD (chronic obstructive pulmonary disease), ASHD (arteriosclerotic heart disease), Hypokalemia Condition: Stable Coding Level of Care Code ED Interior Design Teacher for Anh Ramirez
--- NOTE | 2024-09-12 11:24 | ECG_ITS ---
[employer] Test Date: 2024-09-12 Pat Name: Arlin Morales Department: Room: Gender: Female Fourth Officer: : 1940 Requested By: Manuel Meza Order Number: [id number] Sofie MD: Eliana Greenwood M.D. Measurements Intervals [place] Rate: 82 P: 50 [place]: 172 QRS: -4 QRSD: 97 T: 66 QT: 363 QTc: 424 Interpretive Statements SINUS RHYTHM WITH OCCASIONAL VENTRICULAR PREMATURE COMPLEXES POSSIBLE SEPTAL MYOCARDIAL INFARCTION , PROBABLY OLD [30 ms Q WAVE IN V1/V2] INTERPRETATION BASED ON A DEFAULT AGE OF 40 YEARS Compared to ECG 07/08/2021 17:05:17 Ventricular premature complex(es) now present Myocardial infarct finding now present T-wave abnormality no longer present Electronically Signed On 09-12-2024 18:48:52 CDT by Eliana Greenwood M.D. [email or web address]
[2024-09-12] MEDS: tetanus-dipt-pertussis 0.5 mL SDV IM (11:34)
[2024-09-12 11:49] LABS: Basophils % 0.3 %; Eosinophils # 0.1 10^3/uL (0.0-0.8); Eosinophils % 1.1 %; Hematocrit 40.7 % (36-47); Lymphocytes # 0.9 10^3/uL (0.8-4.8); Lymphocytes % 10.6 %; Mean Corpuscular HGB Conc 32.2 g/dL (30-55); Mean Corpuscular Hemoglobin 30.9 pg (27-33); Mean Platelet Volume 9.3 fL (7.4-10.4); Monocytes # 0.5 10^3/uL (0.2-0.9); Neutrophils # 7.14 10^3/uL (1.8-7.7); Neutrophils % 81.3 %; Nucleated Red Blood Cells % 0 %; Platelet Count 245 10^3/cmm (157-399); Red Blood Count 4.24 10^6/uL (3.85-5.65); Red Cell Distribution Width 13.8 % (12.1-15.1); White Blood Count 8.79 10^3/uL (3.29-11.43)
[2024-09-12 12:11] LABS: Alanine Aminotransferase 13 U/L (0-33); Alkaline Phosphatase 86 U/L (35-105); Anion Gap 14.9 (5-19); Aspartate Amino Transferase 17 U/L (0-32); Blood Urea Nitrogen 17 mg/dL (8-23); Carbon Dioxide 28 mmol/L (22-29); Chloride 100 mmol/L (98-107); Creatinine Clr Calc Pharmacy 32.3971; Globulin 2.9 g/dL (1.3-4.6); Glucose 91 mg/dL (65-115); Osmolality Calculated 291 mOsm/kg (285-295); Sodium 140 mmol/L (136-145); Total Bilirubin 0.4 mg/dL (0.15-1.2); Total Protein 6.9 g/dL (6.6-8.7)
[2024-09-12 12:15] LABS: Potassium 2.9 mmol/L (3.5-5.1)
[2024-09-12] MEDS: ondansetron 2 mg/ML SDV 2 mL 4 MG IVP (12:32)
[2024-09-12] MEDS: morphine 4 mg/mL SDV 1 mL 2 MG IVP ×2 (12:34→17:37)
[2024-09-12] MEDS: potassium chloride premix 100 ML 25 MEQ IV (12:36)
[2024-09-12] MEDS: sodium chloride 0.9% 500 ML 125 ML IV (12:59)
--- NOTE | 2024-09-12 13:24 | PM.CONSULT ---
Providers/Reason For Consult Consulting Physician/Specialty*: Benny Doran MD/orthopedics Reason for Consult*: Left intertrochanteric hip fracture Attending Physician: Matthew Orlando Primary Care Provider: Osamr Lo MD History of Present Illness History of Present Illness Arlin Morales is a 83 year old female who is trying to go from her garage to her house earlier today when she slipped and fell landing on her left side. She had pain inability to bear weight was brought by squad to the emergency room. X-rays there demonstrated a minimally displaced minimally angulated intertrochanteric hip fracture left hip. Patient is only had coffee today and therefore is n.p.o. already. After evaluation in the ED orthopedic consultation was obtained. Patient has no other complaints at this time Review of Systems Const: Denies: fever(s) or chills Card: Denies: chest pain Resp: Denies: dyspnea GI: Denies: abdominal pain : Denies: dysuria, urinary frequency or urinary urgency Musc: Denies: neck pain or back pain Skin/Breast: Denies: rash All/Imm: Denies: acute wheezing Medications/Allergies Home Medications ?Medication ?Instructions ?Recorded ?Confirmed ?Last Taken ?Type amlodipine 5 mg tablet 5 mg PO QAM 06/27/19 09/12/24 09/12/24 History aspirin 81 mg tablet,delayed 81 mg PO QAM 06/27/19 09/12/24 09/12/24 History release (Adult Low Dose Aspirin) cholecalciferol (vitamin D3) 10 400 unit PO QDAY 06/27/19 09/12/24 09/12/24 History mcg (400 unit) capsule docusate sodium 100 mg capsule 100 mg PO QDAY 06/27/19 09/12/24 09/12/24 History (Colace) simvastatin 20 mg tablet (Zocor) 20 mg PO QPM 06/27/19 09/12/24 09/11/24 History lisinopril 20 mg tablet 20 mg PO DAILY 01/09/21 09/12/24 09/12/24 History nitroglycerin 0.4 mg sublingual 0.4 mg sublingual Q5M PRN chest 07/14/21 09/12/24 Unknown Rx tablet (Nitrostat) pain #25 tabs acetaminophen 650 mg 650 mg PO Q8H PRN Pain 01/13/22 09/12/24 Unknown History tablet,extended release (Tylenol 8 Hour) hydrocodone 5 mg-acetaminophen 325 1 tab PO Q8H PRN Pain 01/13/22 09/12/24 Unknown History mg tablet propylene glycol 0.6 % eye drops 1 drp ophthalmic (eye) DAILY PRN 10/29/22 09/12/24 Unknown History (Systane Balance) Dry Eyes metoprolol tartrate 25 mg tablet 25 mg PO BID #180 tabs 11/26/22 09/12/24 09/12/24 Rx naproxen 500 mg tablet (Naprosyn) 500 mg PO BID PRN pain #20 tabs 08/28/24 09/12/24 Unknown Rx albuterol sulfate 90 mcg/actuation 2 puff inhalation Q6H PRN 09/12/24 09/12/24 Unknown History aerosol inhaler Shortness Of Breath budesonide 160 mcg-glycopyr 9 2 inh inhalation BID 09/12/24 09/12/24 09/12/24 History mcg-formot 4.8 mcg/actuation HFA inhaler (Breztri Aerosphere) levothyroxine 88 mcg tablet 88 mcg PO QAM 09/12/24 09/12/24 09/12/24 History vit C 250 mg-vit E 90 mg-zinc 40 1 tab PO BID 09/12/24 09/12/24 09/12/24 History mg-copper 1 [id number] capsule (PreserVision AREDS-2) Allergies Allergy/AdvReac Type Severity Reaction Status Date / Time No Known Allergies Allergy Verified 09/07/24 13:00 Current Medications Generic Name Dose Route Start Last Admin Trade Name Freq PRN Reason Stop Dose Admin Potassium Chloride 100 mls @ 25 mls/hr 09/12/24 12:24 09/12/24 12:36 K-Narinder IV 09/12/24 16:23 25 mls/hr ONCE ONE Administration Sodium Chloride 500 mls @ 125 mls/hr 09/12/24 12:45 09/12/24 12:59 Sodium Chloride 0.9% IV 09/12/24 16:44 125 mls/hr .Q4H VEENA Administration PFSH Acute PFSH: Medical History PAD (peripheral artery disease) History of malignant melanoma History of nonmelanoma skin cancer Elevated diaphragm Diaphragmatic hernia ASHD (arteriosclerotic heart disease) COPD (chronic obstructive pulmonary disease) Myocardial infarction Chronic pain Glucose intolerance Essential hypertension Hypothyroidism Smoker Surgical History S/P angioplasty with stent Family History Sister Diabetes CAD (coronary artery disease) Hypertension Brother CAD (coronary artery disease) Hypertension Social History Smoking and tobacco/nicotine status: current every day tobacco/nicotine user cigarettes Packs smoked per day: 0.5 Alcohol intake: never Substance/Drug Use: never Lives independently: Yes Household members: children Marital status: / service: No Current occupational status: retired Current gender identity: Female Dietary Habits: Current diet type/program: regular Caffeine: Yes Exercise: What type of physical activity do you participate in?: none Safety: Seatbelt use: always Home Safety: Working smoke detector in home: Yes Fire extinguisher in home: Yes Carbon monoxide detector in home: Yes Vitals/I&O/Wt Last Vital Signs Temp 97.9 F 09/12/24 10:31 Pulse 82 09/12/24 13:15 Resp 17 09/12/24 12:34 BP 156/89 09/12/24 13:15 Pulse Ox 96 09/12/24 13:15 O2 Del Method Room Air 09/12/24 10:31 Weight last 48 hrs Weight 88 lb Physical Exam Narrative: On examination today patient is in a hospital [facility] being placed in her hospital bed. She appears to be comfortable at this time is awake alert oriented. Left lower extremity is neurovascular intact distally. She does not care for any motion of the left leg. He is slightly shortened though no rotation. No other injuries identified. Const: COMMON NORMALS: no acute distress, average body habitus and patient oriented x3 HENMT: COMMON NORMALS: normocephalic, atraumatic and hearing grossly normal bilaterally HEAD & SCALP: normocephalic and atraumatic Eye: OTHER: Patient wears glasses for vision Neck/C-Spine: COMMON NORMALS: full ROM and supple Chest: COMMONS NORMALS: normal inspection of the chest Resp: COMMON NORMALS: normal respiratory effort, No retractions, No use of accessory muscles and clear to auscultation bilaterally AUSCULTATION: clear to auscultation bilaterally Cardio: COMMON NORMALS: regular rate, regular rhythm and Peripheral pulses 2+ throughout RATE: regular rate RHYTHM: regular rhythm PERIPHERAL PULSES: Peripheral pulses 2+ throughout GI: COMMON NORMALS: Normal to inspection, nondistended, normoactive bowel sounds present, Soft to palpation and non-tender PALPATION: Yes Soft to palpation : OTHER: Deferred Back/Pelvis: OTHER: Tender to palpation about the left hemipelvis Extremity: OTHER: As per above Neuro: COMMON NORMALS: patient oriented x3, moves all extremities and no focal motor deficits Psych: COMMON NORMALS: mental status grossly normal, Normal thought process present, cooperative and normal affect THOUGHT PROCESS: Normal thought process present Skin: COMMON NORMALS: no rashes or lesions noted GENERAL SKIN EXAM: no rashes or lesions noted Urinary Catheter Management: Woody: Cath Placed During This Visit: yes Urinary Catheter Date of Insertion: 09/12/24 Urinary Catheter Time of Insertion: 11:56 Data 09/12/24 11:41 09/12/24 11:41 Other data: X-rays were reviewed by myself demonstrating intertrochanteric hip fracture left hip. Minimally displaced minimally angulated A&P Assessment and plan (1) Closed intertrochanteric fracture of left hip: Patient has a left intertrochanteric hip fracture. Qualifiers: Encounter type: initial encounter Fracture alignment: displaced Qualified Code(s): S72.142A - Displaced intertrochanteric fracture of left femur, initial encounter for closed fracture Plan Plan at this time is for surgical intervention for stabilization of the fracture using a proximal trochanteric nail. All risk benefits treatment alternatives were discussed with her and she is agreeable to proceed with this at this time. PDMP PDMP Reviewed: Not Reviewed Coding Level of Care Code Critical Care >/= 30 minutes Diagnoses Closed displaced intertrochanteric fracture of left femur, initial encounter S72.142A Encounter type: initial encounter Fracture alignment: displaced
--- NOTE | 2024-09-12 13:40 | ANES.PREANE2 ---
Pre-Anesthetic Assessment Height/Weight: Height 5 ft 3 in Weight 88 lb Temp Pulse Resp BP Pulse Ox O2 Del Method 97.9 F 82 17 156/89 96 Room Air 09/12/24 10:31 09/12/24 13:15 09/12/24 12:34 09/12/24 13:15 09/12/24 13:15 09/12/24 10:31 Preop Diagnosis: Hip fracture Operation Date: 09/12/24 14:30 Proposed Procedures p Trochanteric Femoral Nail(Left) - Benny Doran MD Was Beta Jonathan taken within 24 hours: Yes Was Clonidine taken within 24 hours: N/A Social Tobacco and No alcohol Exam alert, oriented x 3, clear to auscultation bilaterally and regular rate & rhythm Airway Submandibular: within normal limits Cervical ROM: within normal limits Mallampati: Class II Dentition: false Anesthetic Plan ASA status: 3 Anesthesia: General Other: No prior issues with anesthesia Patient had black coffee with sugar around 6 AM History of COPD, current smoker. No home O2 Hypertension on lisinopril and metoprolol Hypothyroidism on Synthroid Potassium 2.9 at admission, K+ currently running Plan for general anesthesia Medications/Allergies Home Medications ?Medication ?Instructions ?Recorded ?Confirmed ?Last Taken ?Type amlodipine 5 mg tablet 5 mg PO QAM 06/27/19 09/12/24 09/12/24 History aspirin 81 mg tablet,delayed 81 mg PO QAM 06/27/19 09/12/24 09/12/24 History release (Adult Low Dose Aspirin) cholecalciferol (vitamin D3) 10 400 unit PO QDAY 06/27/19 09/12/24 09/12/24 History mcg (400 unit) capsule docusate sodium 100 mg capsule 100 mg PO QDAY 06/27/19 09/12/24 09/12/24 History (Colace) simvastatin 20 mg tablet (Zocor) 20 mg PO QPM 06/27/19 09/12/24 09/11/24 History lisinopril 20 mg tablet 20 mg PO DAILY 01/09/21 09/12/24 09/12/24 History nitroglycerin 0.4 mg sublingual 0.4 mg sublingual Q5M PRN chest 07/14/21 09/12/24 Unknown Rx tablet (Nitrostat) pain #25 tabs acetaminophen 650 mg 650 mg PO Q8H PRN Pain 01/13/22 09/12/24 Unknown History tablet,extended release (Tylenol 8 Hour) hydrocodone 5 mg-acetaminophen 325 1 tab PO Q8H PRN Pain 01/13/22 09/12/24 Unknown History mg tablet propylene glycol 0.6 % eye drops 1 drp ophthalmic (eye) DAILY PRN 10/29/22 09/12/24 Unknown History (Systane Balance) Dry Eyes metoprolol tartrate 25 mg tablet 25 mg PO BID #180 tabs 11/26/22 09/12/24 09/12/24 Rx naproxen 500 mg tablet (Naprosyn) 500 mg PO BID PRN pain #20 tabs 08/28/24 09/12/24 Unknown Rx albuterol sulfate 90 mcg/actuation 2 puff inhalation Q6H PRN 09/12/24 09/12/24 Unknown History aerosol inhaler Shortness Of Breath budesonide 160 mcg-glycopyr 9 2 inh inhalation BID 09/12/24 09/12/24 09/12/24 History mcg-formot 4.8 mcg/actuation HFA inhaler (Breztri Aerosphere) levothyroxine 88 mcg tablet 88 mcg PO QAM 09/12/24 09/12/24 09/12/24 History vit C 250 mg-vit E 90 mg-zinc 40 1 tab PO BID 09/12/24 09/12/24 09/12/24 History mg-copper 1 [id number] capsule (PreserVision AREDS-2) Allergies Allergy/AdvReac Type Severity Reaction Status Date / Time No Known Allergies Allergy Verified 09/07/24 13:00 Current Medications Generic Name Dose Route Start Last Admin Trade Name Freq PRN Reason Stop Dose Admin Potassium Chloride 100 mls @ 25 mls/hr 09/12/24 12:24 09/12/24 12:36 K-Narinder IV 09/12/24 16:23 25 mls/hr ONCE ONE Administration Sodium Chloride 500 mls @ 125 mls/hr 09/12/24 12:45 09/12/24 12:59 Sodium Chloride 0.9% IV 125 mls/hr .Q4H VEENA Administration PFSH Anesthesia Medical History PAD (peripheral artery disease) History of malignant melanoma History of nonmelanoma skin cancer Elevated diaphragm Diaphragmatic hernia ASHD (arteriosclerotic heart disease) COPD (chronic obstructive pulmonary disease) Myocardial infarction Chronic pain Glucose intolerance Essential hypertension Hypothyroidism Smoker Surgical History S/P angioplasty with stent Family History Sister Diabetes CAD (coronary artery disease) Hypertension Brother CAD (coronary artery disease) Hypertension Social History Smoking and tobacco/nicotine status: current every day tobacco/nicotine user cigarettes Packs smoked per day: 0.5 Alcohol intake: never Substance/Drug Use: never Lives independently: Yes Household members: children Marital status: / service: No Current occupational status: retired Current gender identity: Female Data Anesthesia 09/12/24 11:41 09/12/24 11:41 Short CBC 09/12/24 Range/Units 11:41 WBC 8.79 (3.29-11.43) 10^3/uL Hgb 13.10 (11.27-16.99) g/dL Hct 40.7 (36-47) % MCV 96.0 (85-98) fl Plt Count 245 (157-399) 10^3/cmm Neut % (Auto) 81.3 % Neut # (Auto) 7.14 (1.8-7.7) 10^3/uL BMP 09/12/24 11:41 Sodium 140 Potassium 2.9 L Chloride 100 Carbon Dioxide 28 BUN 17 Creatinine 0.6 Glucose 91 Calcium 9.0 Liver Function 09/12/24 Range/Units 11:41 Total Bilirubin 0.4 (0.15-1.2) mg/dL AST 17 (0-32) U/L ALT 13 (0-33) U/L Alkaline Phosphatase 86 (35-105) U/L Albumin 4.0 (3.5-5.2) g/dL Cardiac Studies: Echocardiogram 03/24/21
[2024-09-12] MEDS: sodium chloride 0.9% 1,000 ML 30 ML (13:44)
[2024-09-12 13:51] LABS: Add Urine Microscopic? NO
[2024-09-12 13:54] LABS: Bilirubin Urine Neg (Negative); Blood Urine Neg (Negative); Glucose Urine UA Norm (Normal); Ketones Urine Negative (Negative); Leukocyte Esterase Urine Negative (Negative); Nitrate Urine Negative (Negative); Protein Urine Neg (Negative); Specific Gravity, Urine 1.005 (1.005-1.030); Urine Appearance Clear (CLEAR); Urine Color Yellow (Yellow); Urobilinogen Urine Neg (Negative); pH Urine 7 (5-7)
[2024-09-12 13:55] LABS: Charge for UA Resulting for Rev
[2024-09-12] MEDS: ceFAZolin 2,000 mg SDV 2000 MG IVP ×2 (14:03→21:43)
--- NOTE | 2024-09-12 14:11 | SC_ITS ---
WS: [id number] Exam: C-arm FL for CVA [id number] Date/Time of Exam: 09/12/2024 2:11 PM Reason For Exam: LT TROCH NAIL AP and lateral intraoperative C-arm images of the LEFT hip are submitted. There is internal fixation involving an intertrochanteric fracture of the LEFT hip. Fracture alignment is satisfactory for healing.
--- NOTE | 2024-09-12 15:22 | PM.HP ---
Providers/Chief Complaint Admitting Physician: Matthew Orlando Primary Care Provider: Osmar Lo MD Chief Complaint: fall - left leg pain History of Present Illness Very pleasant 83-year-old lady with history of CAD, coronary stent, HTN, HLD, PAD, COPD, hypothyroidism, diaphragmatic hernia, came in after sustaining a fall at home, she states that she was just not being comfortable , she was carrying her cane with her, but tripped and fell with subsequent pain in her left hip. In ER patient showing acute mildly comminuted intertrochanteric fracture of left femur. With hypokalemia potassium 2.9. Review of Systems Const: Denies: fever(s) or chills Card: Denies: chest pain or pre-syncope Resp: Denies: dyspnea or productive cough GI: Denies: abdominal pain Neuro: Denies: headache(s) or confusion Medications/Allergies Home Medications ?Medication ?Instructions ?Recorded ?Confirmed ?Last Taken ?Type amlodipine 5 mg tablet 5 mg PO QAM 06/27/19 09/12/24 09/12/24 History aspirin 81 mg tablet,delayed 81 mg PO QAM 06/27/19 09/12/24 09/12/24 History release (Adult Low Dose Aspirin) cholecalciferol (vitamin D3) 10 400 unit PO QDAY 06/27/19 09/12/24 09/12/24 History mcg (400 unit) capsule docusate sodium 100 mg capsule 100 mg PO QDAY 06/27/19 09/12/24 09/12/24 History (Colace) simvastatin 20 mg tablet (Zocor) 20 mg PO QPM 06/27/19 09/12/24 09/11/24 History lisinopril 20 mg tablet 20 mg PO DAILY 01/09/21 09/12/24 09/12/24 History nitroglycerin 0.4 mg sublingual 0.4 mg sublingual Q5M PRN chest 07/14/21 09/12/24 Unknown Rx tablet (Nitrostat) pain #25 tabs acetaminophen 650 mg 650 mg PO Q8H PRN Pain 01/13/22 09/12/24 Unknown History tablet,extended release (Tylenol 8 Hour) hydrocodone 5 mg-acetaminophen 325 1 tab PO Q8H PRN Pain 01/13/22 09/12/24 Unknown History mg tablet propylene glycol 0.6 % eye drops 1 drp ophthalmic (eye) DAILY PRN 10/29/22 09/12/24 Unknown History (Systane Balance) Dry Eyes metoprolol tartrate 25 mg tablet 25 mg PO BID #180 tabs 11/26/22 09/12/24 09/12/24 Rx naproxen 500 mg tablet (Naprosyn) 500 mg PO BID PRN pain #20 tabs 08/28/24 09/12/24 Unknown Rx albuterol sulfate 90 mcg/actuation 2 puff inhalation Q6H PRN 09/12/24 09/12/24 Unknown History aerosol inhaler Shortness Of Breath budesonide 160 mcg-glycopyr 9 2 inh inhalation BID 09/12/24 09/12/24 09/12/24 History mcg-formot 4.8 mcg/actuation HFA inhaler (Breztri Aerosphere) levothyroxine 88 mcg tablet 88 mcg PO QAM 09/12/24 09/12/24 09/12/24 History vit C 250 mg-vit E 90 mg-zinc 40 1 tab PO BID 09/12/24 09/12/24 09/12/24 History mg-copper 1 [id number] capsule (PreserVision AREDS-2) Allergies Allergy/AdvReac Type Severity Reaction Status Date / Time No Known Allergies Allergy Verified 09/07/24 13:00 PFSH Acute PFSH: Medical History PAD (peripheral artery disease) History of malignant melanoma History of nonmelanoma skin cancer Elevated diaphragm Diaphragmatic hernia ASHD (arteriosclerotic heart disease) COPD (chronic obstructive pulmonary disease) Myocardial infarction Chronic pain Glucose intolerance Essential hypertension Hypothyroidism Smoker Surgical History S/P angioplasty with stent Family History Sister Diabetes CAD (coronary artery disease) Hypertension Brother CAD (coronary artery disease) Hypertension Social History Smoking and tobacco/nicotine status: current every day tobacco/nicotine user cigarettes Packs smoked per day: 0.5 Alcohol intake: never Substance/Drug Use: never Lives independently: Yes Household members: children Marital status: / service: No Current occupational status: retired Current gender identity: Female Vitals/I&O/Wt Last Vital Signs Temp 97.9 F 09/12/24 10:31 Pulse 82 09/12/24 13:15 Resp 17 09/12/24 12:34 BP 156/89 09/12/24 13:15 Pulse Ox 96 09/12/24 13:15 O2 Del Method Room Air 09/12/24 10:31 Weight last 48 hrs Weight 39.916 kg Physical Exam Const: COMMON NORMALS: patient oriented x3 and alert GENERAL APPEARANCE: cooperative ORIENTATION/CONSCIOUSNESS: Yes awake HENMT: COMMON NORMALS: oropharynx normal Neck/C-Spine: COMMON NORMALS: no JVD Resp: COMMON NORMALS: normal respiratory effort and clear to auscultation bilaterally AUSCULTATION: clear to auscultation bilaterally Cardio: COMMON NORMALS: no JVD, regular rhythm, S1 normal heart sound present, S2 normal heart sound present and No murmurs present (Cardio) RHYTHM: regular rhythm HEART SOUNDS: S1 normal heart sound present and S2 normal heart sound present GI: COMMON NORMALS: Normal to inspection, nondistended, normoactive bowel sounds present, Soft to palpation and non-tender PALPATION: Yes Soft to palpation Extremity: COMMON NORMALS: no joint enlargement and no pedal edema Neuro: COMMON NORMALS: patient oriented x3 and moves all extremities SENSORIUM/ORIENTATION: Yes alert Skin: COMMON NORMALS: no rashes or lesions noted GENERAL SKIN EXAM: no rashes or lesions noted Urinary Catheter Management: Woody: Cath Placed During This Visit: yes Urinary Catheter Date of Insertion: 09/12/24 Urinary Catheter Time of Insertion: 11:56 Data 09/12/24 11:41 09/12/24 11:41 A&P Assessment and plan (1) Closed intertrochanteric fracture of left hip: After mechanical fall. She denies any fainting, lightheadedness or presyncope. Was carrying her cane. Tripped all, resulting in acute mildly comminuted left intertrochanteric hip fracture. With history of CAD, without chest pain, no obvious ischemic changes on EKG on my interpretation, pending official. Has been taken or repair by orthopedic surgery. Doing well postoperatively. Denies chest pain or pressure, breathing well. Pending assessment by PT. Encouraged incentive spirometer. Pending disposition planning, possible return home versus rehabilitation. Reviewed vitals, CBC, CMP, requested magnesium, reviewed UA, EKG, chest x-ray, hip x-ray, ER provider note, discussed with ER provider. DVT prophylaxis per orthopedics, has been started on aspirin 325 mg. With large subdiaphragmatic hernia would avoid NSAIDs otherwise. Hydrocodone as needed for moderate pain. IV morphine as needed for severe breakthrough. Remove Woody once mobilizing. Qualifiers: Encounter type: initial encounter Fracture alignment: displaced Qualified Code(s): S72.142A - Displaced intertrochanteric fracture of left femur, initial encounter for closed fracture Plan Hypokalemia: Potassium is been replaced. Recheck potassium level. Check magnesium level. Goals of care: She has never considered her CODE STATUS, states that she would like to keep it in the back of her mind for now, for now she is okay with keeping it full code, although may choose to change at a later time. CAD: Reviewed EKG from continue aspirin, beta-andra, statin. PAD: as above. COPD: Continue budesonide, breathing treatments. HTN: Monitor blood pressures, has been hypertensive, continue amlodipine, metoprolol, lisinopril HLD: Continue statin Hypothyroidism: Continue levothyroxine Diaphragmatic hernia: Avoid NSAIDs. Aspiration precautions, elevate head of bed. PDMP PDMP Reviewed: Not Reviewed Attestations Medical Necessity Statement*: Admission over 2 midnights anticipated for assessment and management of closed comminuted intratrochanteric fracture of the left hip in a lady of advanced age with multiple comorbidities as above. and High MDM includes amount and/or complexity of data reviewed/ordered [ previous or external records, resulted lab(s)/test(s), ordered lab(s)/test(s), independent test interpretation and other healthcare professional discussion] and described risk of complication, morbidity or mortality of management as documented Diagnoses Closed displaced intertrochanteric fracture of left femur, initial encounter S72.142A Encounter type: initial encounter Fracture alignment: displaced
--- NOTE | 2024-09-12 15:56 | PM.OP ---
Operative Report Date of procedure: September 12, 2024 Surgeon: Benny Doran MD Procedure: Preop diagnosis: Intertrochanteric hip fracture left hip Postop diagnosis: Same Procedure: Closed reduction with internal fixation of left hip fracture with trochanteric nail Surgeon: Benny Doran MD Anesthesia: General EBL: 100 cc Complications: None Indications: Arlin is an 83-year-old white female who is active and lives at home. She lost her balance going from the garage to the house landing on her left side. She injured her hip and was unable to bear weight. Was brought to the emergency room via squad. X-rays there demonstrated intertrochanteric hip fracture on the left. Therefore the patient was admitted to the hospitalist service and orthopedic consultation was obtained. After initial evaluation of the x-ray is felt the patient would most benefit from open reduction with internal fixation of the left hip fracture. All risk benefits treatment alternatives were discussed with her and her daughter and they are agreeable to this at this time. Procedure: After obtaining her consent he was taken to the operating room on her hospital bed and general anesthetic was administered. Once good anesthesia was achieved patient placed above the fracture table. Left leg placed in a traction boot. Right leg was abducted and flexed and padded appropriately. Patient was secured to the table. Interoperative fluoroscopy demonstrated the fracture and under gentle traction manipulation fracture was reduced. Left hip and leg were prepped and draped usual fashion. After surgical timeout a longitudinal incision made just proximal to the greater trochanter. This is on the lateral side of the hip. Sharp dissected going down to bony structures. Entry awl was placed to the superior tip of the greater trochanter and driven down into the greater interventionally canal with a femur. This was confirmed our fluoroscopic evaluation. Guide sin was placed through this and on down the interventionally canal. This too was confirmed under fluoroscopic evaluation. Proximal reaming the femur was done. A size ten 130 degree proximal trochanteric nail was selected. He is placed on the drill guide. This is then slid down over the guide sin and impacted into the proximal femur. Interoperative fluoroscopy was used to guide this in the position. Subsequently lag screw drill guide was placed through the bracket and stab wound was made on the lateral side of the hip and this was placed down onto the greater trochanter. Guidepin was driven on up into the inferior aspect of the neck and into the femoral head. This confirmed the lateral view of the be adequate positioning. This is measured to 90 degree lag screw. Guidepin was then overreamed with lag screw drill to a depth of 90 mm. Subsequently a 90 mm lag screw was placed on up the guidewire through the proximal trochanteric nail into the femoral neck and head. This confirmed under fluoroscopic evaluation. At this point a distal locking screw drill guide was placed through the racquet and stab wound was placed in the lateral thigh. This placed up against the femur and drilled. A 35 mm bicortical screw was selected. This is then placed down through the drill tube and into the femur securing the distal sin in the femur together. Interoperative fluoroscopy demonstrated adequate positioning of this. AP lateral views of the hip demonstrate reduction of the fracture. Should be noted it does appear that there may be a subcapital fracture of the femoral head also along with the intertrochanteric fracture. However fixation is capturing both of these at this time. Wounds are washed with sterile irrigation. Deep fascia repair is 0 Vicryl dblpue-ad-ebord sutures. Subcutaneous tissue reapproximated 0 Vicryl interrupted sutures. Skin was closed with skin jelena. Wounds are cleaned and dried dressed with Silvadene dressing with adhesive tape on it. Patient awakened transferred covering stable condition
--- NOTE | 2024-09-12 16:00 | ANE.PACU2 ---
Inpatient post-anesthesia follow up: Airway intact: Yes Vital signs: Temperature 98.1 F Pulse Rate 105 Respiratory Rate 19 Blood Pressure 133/77 Pulse Oximetry 90 Oxygen Delivery Me thod Nasal Cannula Oxygen Flow Rate 2 Fraction of Inspir ed Oxygen Hydration adequate: Yes Nausea and vomiting: No Pain level: 1 Mental status: Baseline
--- NOTE | 2024-09-12 16:16 | PC.NURSE ---
1603 - accepted into room 271 - pt alert and appropriate with 2LNC on - pt in no distress upon this nurse exiting care - temp 97.4 - BP 113/63- 97% 2LNC - pulse 77
[2024-09-12] MEDS: HYDROcodone-acetaminophen 5-325 mg Tablet 1 TAB PO (16:37)
[2024-09-12] MEDS: chlorhexidine gluconate 0.12% Btl 473 mL 30 ML MUCOUS MEM ×2 (17:22→21:42)
[2024-09-12] MEDS: metoprolol tartrate 25 mg Tablet PO (17:23)
[2024-09-12] MEDS: calcium carbonate 500 mg Chew Tablet 1000 MG PO (17:23)
[2024-09-12] MEDS: mupirocin oint 22 gm 1 APPLIC NASAL (17:23)
[2024-09-12] MEDS: sennosides-docusate Tablet 2 TAB PO (17:23)
[2024-09-12] MEDS: atorvastatin 40 mg Tablet 20 MG PO (17:23)
[2024-09-12] MEDS: iron polysaccharide complex 150 mg Capsule PO (17:23)
[2024-09-13] VITALS (11 sets, daily range): BP systolic 94–133; BP diastolic 56–77; PULSE 66–105; RESP 17–19; TEMP 36.4–36.9; O2SAT 90–96
[2024-09-13] MEDS: HYDROcodone-acetaminophen 5-325 mg Tablet 1 TAB PO ×2 (00:33→05:59)
[2024-09-13] MEDS: ceFAZolin 2,000 mg SDV 2000 MG IVP ×2 (05:59→13:27)
[2024-09-13] MEDS: levothyroxine 88 mcg Tablet PO (05:59)
[2024-09-13 09:12] LABS: Basophils % 0.1 %; Hematocrit 31.1 % (36-47); Lymphocytes # 0.9 10^3/uL (0.8-4.8); Lymphocytes % 9.3 %; Mean Corpuscular HGB Conc 31.2 g/dL (30-55); Mean Corpuscular Hemoglobin 30.2 pg (27-33); Mean Corpuscular Volume 96.9 fl (85-98); Mean Platelet Volume 9.8 fL (7.4-10.4); Monocytes # 0.8 10^3/uL (0.2-0.9); Monocytes % 8.9 %; Neutrophils # 7.69 10^3/uL (1.8-7.7); Neutrophils % 81.2 %; Nucleated Red Blood Cells % 0 %; Platelet Count 214 10^3/cmm (157-399); Red Blood Count 3.21 10^6/uL (3.85-5.65); Red Cell Distribution Width 13.8 % (12.1-15.1); White Blood Count 9.47 10^3/uL (3.29-11.43)
[2024-09-13 09:33] LABS: Anion Gap 14.1 (5-19); Blood Urea Nitrogen 23 mg/dL (8-23); Calcium 8.6 mg/dL (8.5-10.5); Carbon Dioxide 26 mmol/L (22-29); Chloride 102 mmol/L (98-107); Creatinine Clr Calc Pharmacy 32.3971; Glucose 116 mg/dL (65-115); Osmolality Calculated 291 mOsm/kg (285-295); Potassium 4.1 mmol/L (3.5-5.1); Sodium 138 mmol/L (136-145)
--- NOTE | 2024-09-13 09:36 | PC.CHAP ---
Pastoral Care Encounter/Spiritual Assessment Type of Contact [] Declined dean of men visit [] Patient/Family/Request visit [] Outpatient visit [] Follow-up visit [] Physician referral [] Code/Alert [x] Routine visit [] Staff referral [] Actively dying [] Patient sleeping [x] Family support [] [] Out of room [] Palliative care [] [] Receiving care in room [] Pre-surgical visit [] Trauma [] Long length of stay [] ICU visit [] Other: Relational/Emotional Strength [x] Patient feels connected with others/family/visitors/staff [] Distress [] Loneliness/isolation [] Abandonment Spirituality of Patient [x] Person of [place] [] Attends Jain of their [place] [x] Believes in Prayer [] Reads Bible or Mormon materials [] There are Spiritual issues to be addressed School Psychometrist Interventions [xx] Prayer [x] Active listening [] Non-anxious presence [x] Spiritual/emotional support [] Crisis/trauma care [] Spiritual counseling [] Bereavement support [] Provided bereavement packet [] Provided Bible/devotional materials [] Provided toy/stuffed animal, coloring book to patient or family member [] Provided Communion [] Anointing/[place]odge [] Salvation [x] Completed spiritual assessment [] Other: Impact on Illness or Injury [] Angry [] Fearful [] Anxious [] Often cries [] Exhaustion [] Unable to work [] Unable to attend roman catholic [] Unable to walk/stand [] Unable to read [] Unable to drive [] Unable to eat/drink [] Unable to sleep [] Unable to be with family [] Patient intubated [] Other: Summary Time spent with patient 5 min
[2024-09-13] MEDS: cholecalciferol (vitamin D3) 1,000 unit Tablet 1000 UNIT PO (09:41)
[2024-09-13] MEDS: metoprolol tartrate 25 mg Tablet PO ×2 (09:42→18:11)
[2024-09-13] MEDS: calcium carbonate 500 mg Chew Tablet 1000 MG PO ×2 (09:42→18:11)
[2024-09-13] MEDS: iron polysaccharide complex 150 mg Capsule PO ×2 (09:42→18:11)
[2024-09-13] MEDS: aspirin 325 mg EC Tablet PO (09:42)
[2024-09-13] MEDS: lisinopril 20 mg Tablet PO (09:42)
[2024-09-13] MEDS: nicotine 7 mg Patch 1 PATCH TRANSDERMA (09:42)
[2024-09-13] MEDS: multivitamin therapeutic Tablet 1 TAB PO (09:42)
[2024-09-13] MEDS: sennosides-docusate Tablet 2 TAB PO ×2 (09:42→18:11)
[2024-09-13] MEDS: docusate sodium 100 mg Capsule PO (09:42)
[2024-09-13] MEDS: chlorhexidine gluconate 0.12% Btl 473 mL 30 ML MUCOUS MEM ×4 (09:43→20:26)
[2024-09-13] MEDS: mupirocin oint 22 gm 1 APPLIC NASAL ×2 (09:43→18:14)
--- NOTE | 2024-09-13 16:31 | P.PN_ITS ---
Subjective 2 Subjective: She is overall doing all right. Denies trouble breathing, no chest pain or pressure. Has been using incentive spirometer. Vitals/I&O/Wt Last Vital Signs Temp 98.3 F 09/13/24 16:00 Pulse 89 09/13/24 16:00 Resp 17 09/13/24 16:00 BP 127/66 09/13/24 16:00 Pulse Ox 91 09/13/24 16:00 O2 Del Method Nasal Cannula 09/13/24 16:00 O2 Flow Rate 2 09/12/24 21:23 09/13/24 09/13/24 09/13/24 06:59 14:59 22:59 Intake Total 420 / 590 980 / 980 Output Total 350 / 1270 Balance 70 / -680 980 / 980 Weight last 48 hrs Weight 39.916 kg Weight 39.916 kg Physical Exam 2 Const: COMMON NORMALS: patient oriented x3 and alert GENERAL APPEARANCE: c ooperative ORIENTATION/CONSCIOUSNESS: Yes awake HENMT: COMMON NORMALS: oropharynx normal Neck/C-Spine: COMMON NORMALS: no JVD Resp: COMMON NORMALS: normal respiratory effort and clear to auscultation bilaterally AUSCULTATION: clear to auscultation bilaterally Cardio: COMMON NORMALS: no JVD, regular rhythm, S1 normal heart sound present, S2 normal heart sound present and No murmurs present (Cardio) RHYTHM: regular rhythm HEART SOUNDS: S1 normal heart sound present and S2 normal heart sound present GI: COMMON NORMALS: Normal to inspection, nondistended, normoactive bowel sounds present, Soft to palpation and non-tender PALPATION: Yes Soft to palpation Extremity: COMMON NORMALS: no joint enlargement and no pedal edema OTHER: Left thigh wound with postop dressing, without bleeding, without surrounding bruising, no swelling, erythema. No swelling in the ankle, able to move her left foot and leg. Neuro: COMMON NORMALS: patient oriented x3 and moves all extremities S ENSORIUM/ORIENTATION: Yes alert Skin: COMMON NORMALS: no rashes or lesions noted GENERAL SKIN EXAM: no rashes or lesions noted Urinary Catheter Management: Woody: Cath Placed During This Visit: yes, but has since been removed by the nurse Reason for Continuing Indwelling Catheter: Decision to DC Catheter Urinary Catheter Date of Insertion: 09/12/24 Urinary Catheter Time of Insertion: 11:56 Date Urinary Catheter Removed: 09/13/24 Time Urinary Catheter Discontinued: 06:20 Data 09/13/24 08:41 09/13/24 08:41 A&P Assessment and plan (1) Closed intertrochanteric fracture of left hip: Reviewed vitals, CBC, BMP, discussed with her, noted anemia, globin down to 9.7. Repeat blood count from the morning. Pending orthopedic reassessment, PT assessment. Discussed with nursing, case resource manager. Will benefit from home health. Woody catheter has been removed. With large subdiaphragmatic hernia would avoid NSAIDs otherwise. Hydrocodone as needed for moderate pain. IV morphine as needed for severe breakthrough. Qualifiers: Encounter type: initial encounter Fracture alignment: displaced Q ualified Code(s): S72.142A - Displaced intertrochanteric fracture of left femur, initial encounter for closed fracture Plan Hypokalemia: Has been replaced. Reviewed magnesium, normal. Goals of care: She has never considered her CODE STATUS, states that she would like to keep it in the back of her mind for now, for now she is okay with keeping it full code, although may choose to change at a later time. CAD: Reviewed EKG from continue aspirin, beta-andra, statin. PAD: as above. COPD: Continue budesonide, breathing treatments. HTN: Monitor blood pressures, has been hypertensive, continue amlodipine, metoprolol, lisinopril HLD: Continue statin Hypothyroidism: Continue levothyroxine Diaphragmatic hernia: Avoid NSAIDs. Aspiration precautions, elevate head of bed. PDMP PDMP Reviewed: Not Reviewed Attestations 2 Medical Necessity Statement*: Continue hospitalization following left hip fracture and repair, acute anemia in a lady of advanced age. Post discharge planning and arrangements. and High MDM includes described risk of complication, morbidity or mortality of management as documented Diagnoses Closed displaced intertrochanteric fracture of left femur, initial encounter S72.142A Encounter type: initial encounter Fracture alignment: displaced
[2024-09-13] MEDS: atorvastatin 40 mg Tablet 20 MG PO (18:11)
[2024-09-14] VITALS (7 sets, daily range): BP systolic 115–153; BP diastolic 67–84; PULSE 80–90; RESP 16–18; TEMP 36.4–36.6; O2SAT 83–97
[2024-09-14] MEDS: amlodipine 5 mg Tablet PO (05:25)
[2024-09-14] MEDS: levothyroxine 88 mcg Tablet PO (05:25)
[2024-09-14 05:39] LABS: Basophils % 0.3 %; Eosinophils # 0.1 10^3/uL (0.0-0.8); Eosinophils % 1.6 %; Hematocrit 28.2 % (36-47); Lymphocytes # 1.3 10^3/uL (0.8-4.8); Mean Corpuscular HGB Conc 31.9 g/dL (30-55); Mean Corpuscular Volume 97.2 fl (85-98); Monocytes # 0.8 10^3/uL (0.2-0.9); Monocytes % 9.2 %; Neutrophils # 6.35 10^3/uL (1.8-7.7); Neutrophils % 73.4 %; Nucleated Red Blood Cells % 0 %; Platelet Count 171 10^3/cmm (157-399); Red Cell Distribution Width 14.2 % (12.1-15.1); White Blood Count 8.66 10^3/uL (3.29-11.43)
[2024-09-14] MEDS: iron polysaccharide complex 150 mg Capsule PO (07:38)
[2024-09-14] MEDS: HYDROcodone-acetaminophen 5-325 mg Tablet 1 TAB PO ×2 (07:38→14:18)
[2024-09-14] MEDS: docusate sodium 100 mg Capsule PO (07:38)
[2024-09-14] MEDS: multivitamin therapeutic Tablet 1 TAB PO (07:38)
[2024-09-14] MEDS: metoprolol tartrate 25 mg Tablet PO (07:39)
[2024-09-14] MEDS: calcium carbonate 500 mg Chew Tablet 1000 MG PO (07:39)
[2024-09-14] MEDS: cholecalciferol (vitamin D3) 1,000 unit Tablet 1000 UNIT PO (07:39)
[2024-09-14] MEDS: sennosides-docusate Tablet 2 TAB PO (07:39)
[2024-09-14] MEDS: aspirin 325 mg EC Tablet PO (07:39)
[2024-09-14] MEDS: nicotine 7 mg Patch 1 PATCH TRANSDERMA (07:40)
[2024-09-14] MEDS: mupirocin oint 22 gm 1 APPLIC NASAL (07:40)
[2024-09-14] MEDS: chlorhexidine gluconate 0.12% Btl 473 mL 30 ML MUCOUS MEM ×2 (07:40→12:52)
[2024-09-14] MEDS: lisinopril 20 mg Tablet PO (07:40)
--- NOTE | 2024-09-14 09:40 | PM.DCS ---
Discharge Providers Date of Admission: 09/12/24 12:21 Date of Discharge: September 14, 2024 Attending Provider at Admission: Matthew Orlando Attending Provider at Discharge: Matthew Orlando Primary Care Provider: Osmar Lo MD Diagnoses at Discharge Discharge Diagnosis (1) Closed intertrochanteric fracture of left hip: Status: Acute Qualifiers: Encounter type: initial encounter Fracture alignment: displaced Qualified Code(s): S72.142A - Displaced intertrochanteric fracture of left femur, initial encounter for closed fracture Reason for Visit Reason for Visit: fall - left leg pain Brief History: Very pleasant 83-year-old lady with history of CAD, coronary stent, HTN, HLD, PAD, COPD, hypothyroidism, diaphragmatic hernia, came in after sustaining a fall at home, she states that she was just not being comfortable , she was carrying her cane with her, but tripped and fell with subsequent pain in her left hip. In ER patient showing acute mildly comminuted intertrochanteric fracture of left femur. With hypokalemia potassium 2.9. Hospital Course Hospital Course She underwent close reduction internal fixation of left hip fracture with trochanteric nail on 09/12, he was initially reassessed after finding of anemia with hemoglobin at 9.7 after 13.1 initial. Received 325 mg aspirin for DVT prophylaxis. Recheck hemoglobin without further rapid decline, down slightly at 9. She is asked to follow-up for reassessment with primary provider in addition to following with orthopedics in office. On assessment by PT she would benefit from home health which has been requested for her. Potassium was supplemented in the hospital with good response, please reassess on follow-up. Consider avoiding NSAIDs due to large intrathoracic hernia. Physical Exam Const: COMMON NORMALS: patient oriented x3 and alert GENERAL APPEARANCE: cooperative ORIENTATION/CONSCIOUSNESS: Yes awake HENMT: COMMON NORMALS: oropharynx normal Neck/C-Spine: COMMON NORMALS: no JVD Resp: COMMON NORMALS: normal respiratory effort and clear to auscultation bilaterally AUSCULTATION: clear to auscultation bilaterally Cardio: COMMON NORMALS: no JVD, regular rhythm, S1 normal heart sound present, S2 normal heart sound present and No murmurs present (Cardio) RHYTHM: regular rhythm HEART SOUNDS: S1 normal heart sound present and S2 normal heart sound present GI: COMMON NORMALS: Normal to inspection, nondistended, normoactive bowel sounds present, Soft to palpation and non-tender PALPATION: Yes Soft to palpation Extremity: COMMON NORMALS: no joint enlargement and no pedal edema OTHER: Left thigh wound with postop dressing, without bleeding, without surrounding bruising, no swelling, erythema. No swelling in the ankle, able to move her left foot and leg. Neuro: COMMON NORMALS: patient oriented x3 and moves all extremities SENSORIUM/ORIENTATION: Yes alert Skin: COMMON NORMALS: no rashes or lesions noted GENERAL SKIN EXAM: no rashes or lesions noted Urinary Catheter Management: Woody: Cath Placed During This Visit: yes, but has since been removed by the nurse Reason for Continuing Indwelling Catheter: Decision to DC Catheter Urinary Catheter Date of Insertion: 09/12/24 Urinary Catheter Time of Insertion: 11:56 Date Urinary Catheter Removed: 09/13/24 Time Urinary Catheter Discontinued: 06:20 Discharge Data Studies Completed and Pending Completed Studies During Hospitalization Category Date Time Status XR chest 1V portable [id number] Stat Exams 09/12/24 11:12 Completed XR hip LT 2-3V wo/w pel* [id number] Stat Exams 09/12/24 10:29 Completed Radiology Impressions Hip/Pelvis X-Ray 09/12/24 10:29 IMPRESSION: Acute mildly comminuted intertrochanteric fracture of the left femur. Laboratory Results WBC 8.66 10^3/uL (3.29-11.43) 09/14/24 04:33 RBC 2.90 10^6/uL (3.85-5.65) L 09/14/24 04:33 Hgb 9.00 g/dL (11.27-16.99) L 09/14/24 04:33 Hct 28.2 % (36-47) L 09/14/24 04:33 MCV 97.2 fl (85-98) 09/14/24 04:33 MCH 31.0 pg (27-33) 09/14/24 04:33 MCHC 31.9 g/dL (30-55) 09/14/24 04:33 RDW 14.2 % (12.1-15.1) 09/14/24 04:33 Plt Count 171 10^3/cmm (157-399) 09/14/24 04:33 MPV 10.0 fL (7.4-10.4) 09/14/24 04:33 Neut % (Auto) 73.4 % 09/14/24 04:33 Lymph % (Auto) 15.0 % 09/14/24 04:33 Coffey % (Auto) 9.2 % 09/14/24 04:33 Eos % (Auto) 1.6 % 09/14/24 04:33 Baso % (Auto) 0.3 % 09/14/24 04:33 Neut # (Auto) 6.35 10^3/uL (1.8-7.7) 09/14/24 04:33 Lymph # (Auto) 1.3 10^3/uL (0.8-4.8) 09/14/24 04:33 Coffey # (Auto) 0.8 10^3/uL (0.2-0.9) 09/14/24 04:33 Eos # (Auto) 0.1 10^3/uL (0.0-0.8) 09/14/24 04:33 Baso # (Auto) 0.0 10^3/uL (0.0-0.1) 09/14/24 04:33 Nucleated RBC % (auto) 0 % 09/14/24 04:33 Nucleated RBCs # 0.0 /100WBC 09/14/24 04:33 Sodium 138 mmol/L (136-145) 09/13/24 08:41 Potassium 4.1 mmol/L (3.5-5.1) 09/13/24 08:41 Chloride 102 mmol/L (98-107) 09/13/24 08:41 Carbon Dioxide 26 mmol/L (22-29) 09/13/24 08:41 Anion Gap 14.1 (5-19) 09/13/24 08:41 BUN 23 mg/dL (8-23) 09/13/24 08:41 Creatinine 0.7 mg/dL (0.5-0.9) 09/13/24 08:41 GFR Calculation Not Reportable 09/13/24 08:41 Glucose 116 mg/dL (65-115) H 09/13/24 08:41 Calculated Osmolality 291 mOsm/kg (285-295) 09/13/24 08:41 Calcium 8.6 mg/dL (8.5-10.5) 09/13/24 08:41 Magnesium 2.0 mg/dL (1.7-2.3) 09/12/24 11:41 Total Bilirubin 0.4 mg/dL (0.15-1.2) 09/12/24 11:41 AST 17 U/L (0-32) 09/12/24 11:41 ALT 13 U/L (0-33) 09/12/24 11:41 Alkaline Phosphatase 86 U/L (35-105) 09/12/24 11:41 Total Protein 6.9 g/dL (6.6-8.7) 09/12/24 11:41 Albumin 4.0 g/dL (3.5-5.2) 09/12/24 11:41 Globulin 2.9 g/dL (1.3-4.6) 09/12/24 11:41 Urine Color Yellow (Yellow) 09/12/24 12:41 Urine Appearance Clear (CLEAR) 09/12/24 12:41 Urine pH 7 (5-7) 09/12/24 12:41 Ur Specific [place] 1.005 (1.005-1.030) 09/12/24 12:41 Urine Protein Neg (Negative) 09/12/24 12:41 Urine Glucose (UA) Norm (Normal) 09/12/24 12:41 Urine Ketones Negative (Negative) 09/12/24 12:41 Urine Blood Neg (Negative) 09/12/24 12:41 Urine Nitrate Negative (Negative) 09/12/24 12:41 Urine Bilirubin Neg (Negative) 09/12/24 12:41 Urine Urobilinogen Neg mg/dL (Negative) 09/12/24 12:41 Ur Leukocyte Esterase Negative (Negative) 09/12/24 12:41 Amorphous Sediment Not Reportable 09/12/24 12:41 Vitals Last Vital Signs Temp 97.9 F 09/14/24 08:00 Pulse 90 09/14/24 08:26 Resp 18 09/14/24 08:26 BP 153/84 09/14/24 08:00 Pulse Ox 92 09/14/24 08:26 O2 Del Method Nasal Cannula 09/14/24 08:26 O2 Flow Rate 2 09/14/24 08:26 Discharge Plan Discharge Patient Disposition: Home Health Service Condition: Stable Prescriptions: New aspirin 325 mg Tablet,Delayed Release (Dr/Ec) 325 mg PO DAILY Qty: 21 0RF nicotine (polacrilex) 4 mg Lozenge 4 mg mucous membrane Q4H PRN (Reason: Nicotine Cravings) Qty: 90 0RF nicotine 7 mg/24 hr Patch 24 Hour 1 patch transdermal DAILY Qty: 30 3RF Continued cholecalciferol (vitamin D3) 400 unit capsule 400 unit PO QDAY docusate sodium [Colace] 100 mg capsule 100 mg PO QDAY amlodipine 5 mg tablet 5 mg PO QAM simvastatin [Zocor] 20 mg tablet 20 mg PO QPM acetaminophen [Tylenol 8 Hour] 650 mg tablet extended release 650 mg PO Q8H PRN (Reason: Pain) hydrocodone-acetaminophen 5-325 mg tablet 1 tab PO Q8H PRN (Reason: Pain) lisinopril 20 mg tablet 20 mg PO DAILY nitroglycerin [Nitrostat] 0.4 mg tablet, sublingual 0.4 mg SUBLINGUAL Q5M PRN (Reason: chest pain) Qty: 25 6RF Systane Balance 0.6 % drops 1 drp ophthalmic (eye) DAILY PRN (Reason: Dry Eyes) metoprolol tartrate 25 mg tablet 25 mg PO BID Qty: 180 2RF naproxen [Naprosyn] 500 mg tablet 500 mg PO BID PRN (Reason: pain) Qty: 20 0RF levothyroxine 88 mcg tablet 88 mcg PO QAM albuterol sulfate 90 mcg/actuation HFA aerosol inhaler 2 puff INHALATION Q6H PRN (Reason: Shortness Of Breath) PreserVision AREDS-2 250-90-40-1 mg Capsule 1 tab PO BID Held aspirin [Adult Low Dose Aspirin] 81 mg tablet,delayed release (DR/EC) 81 mg PO QAM Hold Instructions: Resume on 10/05/24. Discontinued Breztri Aerosphere 160-9-4.8 mcg/actuation HFA aerosol inhaler 2 inh INHALATION BID Discharge Orders: Discharge Order (Routine); Ordered 09/14/24 Ordered By: Matthew Orlando Other Ambulatory Orders: DME: Commode (Order) Location: None Selected Ordered By: Matthew Orlando DME: Wheelchair (Order) Location: None Selected Ordered By: Matthew Orlando Referrals: Osmar Lo MD [Primary Care Provider] - 09/19/24 1:45 pm Benny Doran MD [Physician] - 09/28/24 1:45 pm Discharge Diet: Cardiac Discharge Activity: As per PT/OT instructions Patient Instructions: Aspirin (By mouth), Nicotine (Absorbed through the skin), Acute Wound Care (DC), How to Quit Using Smokeless Tobacco (DC), Intramedullary Nailing (DC), Opioid Safety, Post Anesthesia Care Activity Restrictions/Additional Instructions: Please follow up with your primary provider for reassessment of anemia. Be mindful of inceased risk of bleeding while on higher dose aspirin. Resume 81mg aspirin after you complete the higher dose course. Please continue efforts to stop smoking. Discharge Attestations Time Spent in Discharge Care*: greater than 30 min Quality Metrics Clinical Quality Measures [ No reported AMI, CVA or VTE this stay] Coding Level of Care Code 83865 Total time (in minutes) for Discharge: 45 Diagnoses Closed displaced intertrochanteric fracture of left femur, initial encounter S72.142A Encounter type: initial encounter Fracture alignment: displaced
--- NOTE | 2024-09-14 12:36 | PC.OT ---
OT TREATMENT HELD DUE TO SCHEDULED PATIENT D/C
== END 2024-09-14 15:15 | disposition home health service (06) | DRG 481 ==
LOC: ER 11:31 → MEDSURG 12:25
PROVIDERS: Orthopaedic Surgery; Admitting Provider Internal Medicine; Emergency Provider Family Medicine; PCP Family Medicine; Visit Provider Internal Medicine
PROC: (CPT 27245; principal; 2024-09-12 14:00)
DX: S72.142A Displaced intertrochanteric fracture of left femur, initial encounter for closed fracture (principal); D62 Acute posthemorrhagic anemia; E87.6 Hypokalemia; I25.10 Atherosclerotic heart disease of native coronary artery without angina pectoris; I10 Essential (primary) hypertension; E78.5 Hyperlipidemia, unspecified; I73.9 Peripheral vascular disease, unspecified; J44.9 Chronic obstructive pulmonary disease, unspecified; K44.9 Diaphragmatic hernia without obstruction or gangrene; D64.9 Anemia, unspecified; S51.012A Laceration without foreign body of left elbow, initial encounter; S81.812A Laceration without foreign body, left lower leg, initial encounter; E03.9 Hypothyroidism, unspecified; I25.2 Old myocardial infarction; W01.0XXA Fall on same level from slipping, tripping and stumbling without subsequent striking against object, initial encounter; Z95.5 Presence of coronary angioplasty implant and graft; Z79.890 Hormone replacement therapy; Y92.009 Unspecified place in unspecified non-institutional (private) residence as the place of occurrence of the external cause; Z79.899 Other long term (current) drug therapy; Z79.82 Long term (current) use of aspirin; Z85.820 Personal history of malignant melanoma of skin; Z85.828 Personal history of other malignant neoplasm of skin; F17.210 Nicotine dependence, cigarettes, uncomplicated
CPT/HCPCS: 36415; 51702; 71045; 72146; 73502; 77001; 80048; 80053; 81003; 83735; 85025; 90471; 90715; 93005; 94640; 94760; 97110; 97116; 97161; 97166; 97530; 97535; 99285; C1713; J0690; J2270; J2405; J2704; J3010; J3480; J7030; J7040; J7611; J9999

== ENCOUNTER 2024-09-24 12:55 | Emergency (ER) | payer MEDICARE, OTHER, SELFPAY ==
[2024-09-24 13:00] VITALS: BP 144/71; PULSE 80; TEMP 36.7; O2SAT 91; BMI 15.5
--- NOTE | 2024-09-24 14:06 | USR_ITS ---
PROCEDURE INFORMATION: Exam: US Duplex Left Lower Extremity Veins, Limited Exam date and time: 09/24/2024 2:38 PM Age: 83 years old Clinical indication: Edema, localized; Lower extremity, left; Prior surgery; Surgery date: <1 month; Surgery type: Hip; Additional info: Leg swelling post hip arthroplasty TECHNIQUE: Imaging protocol: Real-time duplex ultrasound of the left extremity with 2-D rush scale, color Doppler flow and spectral waveform analysis including responses to compression and other maneuvers (when performed) with image documentation. Limited exam focused on the left lower extremity veins. COMPARISON: No relevant prior studies available. FINDINGS: Left deep veins: Unremarkable. The common femoral, femoral, proximal profunda femoral and popliteal veins are patent without thrombus. Normal Doppler waveforms. Normal compressibility and/or augmentation response. Superficial veins: Greater saphenous vein at the saphenofemoral junction is patent without thrombus. Soft tissues: Unremarkable. US/[place] [id number] IMPRESSION: No evidence of deep vein thrombosis.
--- NOTE | 2024-09-24 14:12 | W.ED.EXTPRO ---
HPI - Extremity Problem General: Chief complaint: Extremity Problem,Nontraumatic Stated complaint: lft hip surgery on 09/12, lft foot swelling Time Seen by Provider: 09/24/24 13:55 History of Present Illness: 83-year-old female presents emergency room with swallowing of the left leg particularly down into the foot. Patient underwent left hip arthroplasty on 09/12/2024 she was discharged home on 410. She has noticed bruising and swelling in the left leg. No drainage from the incision she denies chest pain she is chronically on oxygen and is maintaining her normal sats on her usual 1 and half liters. Associated symptoms: Deny chest pain, fever(s) or rash Related Data Home Medications ?Medication ?Instructions ?Recorded ?Confirmed amlodipine 5 mg tablet 5 mg PO QAM 06/27/19 09/24/24 aspirin 81 mg tablet,delayed 81 mg PO QAM 06/27/19 09/24/24 release (Adult Low Dose Aspirin) Held on 09/14/24. Instructions: Resume on 10/05/24. cholecalciferol (vitamin D3) 10 400 unit PO QDAY 06/27/19 09/24/24 mcg (400 unit) capsule docusate sodium 100 mg capsule 100 mg PO QDAY 06/27/19 09/24/24 (Colace) simvastatin 20 mg tablet (Zocor) 20 mg PO QPM 06/27/19 09/24/24 lisinopril 20 mg tablet 20 mg PO DAILY 01/09/21 09/24/24 acetaminophen 650 mg 650 mg PO Q8H PRN Pain 01/13/22 09/24/24 tablet,extended release (Tylenol 8 Hour) hydrocodone 5 mg-acetaminophen 325 1 tab PO Q8H PRN Pain 01/13/22 09/24/24 mg tablet propylene glycol 0.6 % eye drops 1 drp ophthalmic (eye) DAILY PRN 10/29/22 09/24/24 (Systane Balance) Dry Eyes albuterol sulfate 90 mcg/actuation 2 puff inhalation Q6H PRN 09/12/24 09/24/24 aerosol inhaler Shortness Of Breath levothyroxine 88 mcg tablet 88 mcg PO QAM 09/12/24 09/24/24 vit C 250 mg-vit E 90 mg-zinc 40 1 tab PO BID 09/12/24 09/24/24 mg-copper 1 [id number] capsule (PreserVision AREDS-2) Previous Rx's ?Medication ?Instructions ?Recorded nitroglycerin 0.4 mg sublingual 0.4 mg sublingual Q5M PRN chest 07/14/21 tablet (Nitrostat) pain #25 tabs metoprolol tartrate 25 mg tablet 25 mg PO BID #180 tabs 11/26/22 aspirin 325 mg tablet,delayed 325 mg PO DAILY #21 tabs 09/14/24 release nicotine (polacrilex) 4 mg buccal 4 mg mucous membrane Q4H PRN 09/14/24 lozenge Nicotine Cravings #90 ea nicotine 7 mg/24 hr daily 1 patch transdermal DAILY #30 ea 09/14/24 transdermal patch Allergies Allergy/AdvReac Type Severity Reaction Status Date / Time No Known Allergies Allergy Verified 09/24/24 13:06 Review of Systems Const: Denies: fever(s) or chills Card: Denies: chest pain Resp: Denies: dyspnea GI: Denies: abdominal pain : Denies: dysuria, urinary frequency or urinary urgency Musc: Reports: extremity swelling; Denies: neck pain or back pain Skin/Breast: Denies: rash PFSH ED PFSH: Medical History PAD (peripheral artery disease) History of malignant melanoma History of nonmelanoma skin cancer Elevated diaphragm Diaphragmatic hernia ASHD (arteriosclerotic heart disease) COPD (chronic obstructive pulmonary disease) Myocardial infarction Chronic pain Glucose intolerance Essential hypertension Hypothyroidism Smoker Surgical History S/P angioplasty with stent Family History Sister Diabetes CAD (coronary artery disease) Hypertension Brother CAD (coronary artery disease) Hypertension Social History Smoking and tobacco/nicotine status: current every day tobacco/nicotine user cigarettes Packs smoked per day: 0.5 Alcohol intake: never Substance/Drug Use: never Lives independently: Yes Household members: children Marital status: / service: No Current occupational status: retired Current gender identity: Female Physical Exam Const: COMMON NORMALS: no acute distress GENERAL APPEARANCE: cooperative and comfortable ORIENTATION/CONSCIOUSNESS: Yes awake, Yes oriented to person, Yes oriented to place and Yes oriented to time HENMT: COMMON NORMALS: normocephalic, atraumatic and hearing grossly normal bilaterally HEAD & SCALP: normocephalic and atraumatic Resp: COMMON NORMALS: normal respiratory effort, No retractions, No use of accessory muscles and clear to auscultation bilaterally AUSCULTATION: clear to auscultation bilaterally Cardio: COMMON NORMALS: regular rate, regular rhythm and No murmurs present (Cardio) RATE: regular rate RHYTHM: regular rhythm Extremity: OTHER: 2+ edema of the right foot and distal lower leg. Edema decreases proximally. Dorsalis pedis posterior tibialis pulse equal bilaterally capillary refill is normal. Sensation to the lower extremity normal. Neuro: SENSORIUM/ORIENTATION: Yes oriented to person, Yes oriented to place and Yes oriented to time Skin: COMMON NORMALS: no rashes or lesions noted GENERAL SKIN EXAM: no rashes or lesions noted Course Vital Signs: Vital signs: Vital Signs Temperature 98.0 F 09/24/24 13:00 Pulse Rate 80 09/24/24 13:00 Blood Pressure 144/71 09/24/24 13:00 Pulse Oximetry 91 09/24/24 13:00 Oxygen Delivery Me thod Nasal Cannula 09/24/24 13:00 Oxygen Flow Rate 4 09/24/24 13:00 MDM - Extremity (Nontraumatic) Medical Decision Making Negative for DVT I think a lot of the swelling in the leg is due to dependent edema discharge patient home we did inspect the incision as well it appears to be healing well posterior to the incision into the buttock and posterior upper thigh there is a lot of ecchymosis no sign of erythema or induration Medical Records I reviewed the patient's medical records. Lab Data I reviewed the patient's lab results. 09/24/24 14:20 09/24/24 14:20 Radiology Impressions Venous Duplex 09/24/24 14:06 IMPRESSION: No evidence of deep vein thrombosis. Laboratory Results WBC 6.31 10^3/uL (3.29-11.43) 09/24/24 14:20 RBC 3.20 10^6/uL (3.85-5.65) L 09/24/24 14:20 Hgb 9.70 g/dL (11.27-16.99) L 09/24/24 14:20 Hct 31.7 % (36-47) L 09/24/24 14:20 MCV 99.1 fl (85-98) H 09/24/24 14:20 MCH 30.3 pg (27-33) 09/24/24 14:20 MCHC 30.6 g/dL (30-55) 09/24/24 14:20 RDW 14.6 % (12.1-15.1) 09/24/24 14:20 Plt Count 317 10^3/cmm (157-399) 09/24/24 14:20 MPV 9.1 fL (7.4-10.4) 09/24/24 14:20 Neut % (Auto) 77.1 % 09/24/24 14:20 Lymph % (Auto) 11.9 % 09/24/24 14:20 [place] % (Auto) 8.1 % 09/24/24 14:20 Eos % (Auto) 1.6 % 09/24/24 14:20 Baso % (Auto) 0.5 % 09/24/24 14:20 Neut # (Auto) 4.87 10^3/uL (1.8-7.7) 09/24/24 14:20 Lymph # (Auto) 0.8 10^3/uL (0.8-4.8) 09/24/24 14:20 [place] # (Auto) 0.5 10^3/uL (0.2-0.9) 09/24/24 14:20 Eos # (Auto) 0.1 10^3/uL (0.0-0.8) 09/24/24 14:20 Baso # (Auto) 0.0 10^3/uL (0.0-0.1) 09/24/24 14:20 Nucleated RBC % (auto) 0 % 09/24/24 14:20 Nucleated RBCs # 0.0 /100WBC 09/24/24 14:20 Sodium 138 mmol/L (136-145) 09/24/24 14:20 Potassium 4.1 mmol/L (3.5-5.1) 09/24/24 14:20 Chloride 97 mmol/L (98-107) L 09/24/24 14:20 Carbon Dioxide 32 mmol/L (22-29) H 09/24/24 14:20 Anion Gap 13.1 (5-19) 09/24/24 14:20 BUN 14 mg/dL (8-23) 09/24/24 14:20 Creatinine 0.5 mg/dL (0.5-0.9) 09/24/24 14:20 GFR Calculation Not Reportable 09/24/24 14:20 Glucose 95 mg/dL (65-115) 09/24/24 14:20 Calculated Osmolality 286 mOsm/kg (285-295) 09/24/24 14:20 Calcium 8.9 mg/dL (8.5-10.5) 09/24/24 14:20 Total Bilirubin 0.5 mg/dL (0.15-1.2) 09/24/24 14:20 AST 17 U/L (0-32) 09/24/24 14:20 ALT 11 U/L (0-33) 09/24/24 14:20 Alkaline Phosphatase 128 U/L (35-105) H 09/24/24 14:20 Total Protein 6.4 g/dL (6.6-8.7) L 09/24/24 14:20 Albumin 3.7 g/dL (3.5-5.2) 09/24/24 14:20 Globulin 2.7 g/dL (1.3-4.6) 09/24/24 14:20 All radiology interpretation(s) finalized by discharge Discharge Plan Discharge Patient Disposition: Home Clinical Impression: Left leg swelling, S/P total left hip arthroplasty Condition: Stable Prescriptions: No Action cholecalciferol (vitamin D3) 400 unit capsule 400 unit PO QDAY aspirin [Adult Low Dose Aspirin] 81 mg tablet,delayed release (DR/EC) 81 mg PO QAM docusate sodium [Colace] 100 mg capsule 100 mg PO QDAY amlodipine 5 mg tablet 5 mg PO QAM simvastatin [Zocor] 20 mg tablet 20 mg PO QPM acetaminophen [Tylenol 8 Hour] 650 mg tablet extended release 650 mg PO Q8H PRN (Reason: Pain) hydrocodone-acetaminophen 5-325 mg tablet 1 tab PO Q8H PRN (Reason: Pain) lisinopril 20 mg tablet 20 mg PO DAILY nitroglycerin [Nitrostat] 0.4 mg tablet, sublingual 0.4 mg SUBLINGUAL Q5M PRN (Reason: chest pain) Qty: 25 6RF Systane Balance 0.6 % drops 1 drp ophthalmic (eye) DAILY PRN (Reason: Dry Eyes) metoprolol tartrate 25 mg tablet 25 mg PO BID Qty: 180 2RF levothyroxine 88 mcg tablet 88 mcg PO QAM albuterol sulfate 90 mcg/actuation HFA aerosol inhaler 2 puff INHALATION Q6H PRN (Reason: Shortness Of Breath) PreserVision AREDS-2 250-90-40-1 mg Capsule 1 tab PO BID aspirin 325 mg Tablet,Delayed Release (Dr/Ec) 325 mg PO DAILY Qty: 21 0RF nicotine 7 mg/24 hr Patch 24 Hour 1 patch transdermal DAILY Qty: 30 3RF nicotine (polacrilex) 4 mg Lozenge 4 mg mucous membrane Q4H PRN (Reason: Nicotine Cravings) Qty: 90 0RF Discharge Orders: Discharge ED (Routine); Ordered 09/24/24 Ordered By: Manuel Negron Referrals: Osmar Lo MD [Primary Care Provider] - Discharge Diet: Usual diet Discharge Activity: Increase activity as tolerated Patient Instructions: Opioid Safety, Pain Management Activity Restrictions/Additional Instructions: Thank you for choosing [facility] for your healthcare needs today. It is very important that you follow up as instructed or that you return to the Emergency Department should you have concerns or if your condition changes or worsens in any way. You were seen in the emergency room for complaints of swelling in your left leg. There is no sign of blood clot on the scan. Suspect the swelling is due to edema from blood in the tissue after your surgery. Follow-up with orthopedic surgeon as planned Print Language: Irish Coding Level of Care Code ED Vp Biology for Anh Ramirez
[2024-09-24 14:26] LABS: Basophils % 0.5 %; Eosinophils # 0.1 10^3/uL (0.0-0.8); Eosinophils % 1.6 %; Hematocrit 31.7 % (36-47); Lymphocytes # 0.8 10^3/uL (0.8-4.8); Lymphocytes % 11.9 %; Mean Corpuscular HGB Conc 30.6 g/dL (30-55); Mean Corpuscular Hemoglobin 30.3 pg (27-33); Mean Corpuscular Volume 99.1 fl (85-98); Mean Platelet Volume 9.1 fL (7.4-10.4); Monocytes # 0.5 10^3/uL (0.2-0.9); Monocytes % 8.1 %; Neutrophils # 4.87 10^3/uL (1.8-7.7); Neutrophils % 77.1 %; Nucleated Red Blood Cells % 0 %; Platelet Count 317 10^3/cmm (157-399); Red Cell Distribution Width 14.6 % (12.1-15.1); White Blood Count 6.31 10^3/uL (3.29-11.43)
[2024-09-24 14:48] LABS: Alanine Aminotransferase 11 U/L (0-33); Albumin Level 3.7 g/dL (3.5-5.2); Alkaline Phosphatase 128 U/L (35-105); Anion Gap 13.1 (5-19); Aspartate Amino Transferase 17 U/L (0-32); Blood Urea Nitrogen 14 mg/dL (8-23); Calcium 8.9 mg/dL (8.5-10.5); Carbon Dioxide 32 mmol/L (22-29); Chloride 97 mmol/L (98-107); Creatinine Clr Calc Pharmacy 32.3971; Globulin 2.7 g/dL (1.3-4.6); Glucose 95 mg/dL (65-115); Osmolality Calculated 286 mOsm/kg (285-295); Potassium 4.1 mmol/L (3.5-5.1); Sodium 138 mmol/L (136-145); Total Bilirubin 0.5 mg/dL (0.15-1.2); Total Protein 6.4 g/dL (6.6-8.7)
[2024-09-24 16:59] VITALS: BP 179/90; PULSE 86; O2SAT 94
== END 2024-09-24 17:20 | disposition home or self-care (01) ==
PROVIDERS: Emergency Provider Family Medicine; PCP Family Medicine
DX: R60.0 Localized edema (principal); Z96.642 Presence of left artificial hip joint; Z79.82 Long term (current) use of aspirin; F17.210 Nicotine dependence, cigarettes, uncomplicated; J44.9 Chronic obstructive pulmonary disease, unspecified; I10 Essential (primary) hypertension
CPT/HCPCS: 36415; 80053; 85025; 93971; 99284

== ENCOUNTER → 2024-09-28 13:30 | Outpatient (BNVA) | payer MEDICARE, OTHER, SELFPAY | PROVIDERS: PCP Family Medicine; Visit Provider Orthopaedic Surgery | DX: S72.002D Fracture of unspecified part of neck of left femur, subsequent encounter for closed fracture with routine healing (principal); Z96.642 Presence of left artificial hip joint; X58.XXXD Exposure to other specified factors, subsequent encounter | CPT/HCPCS: 73502; 99024 ==

== ENCOUNTER 2024-10-21 10:40 | Observation (INO) | payer MEDICARE, OTHER, SELFPAY ==
[2024-10-21] VITALS (11 sets, daily range): BP systolic 117–162; BP diastolic 71–86; PULSE 67–85; RESP 15–17; TEMP 36.5–36.7; O2SAT 90–97; BMI 16.6; BMI 19.0
--- NOTE | 2024-10-21 12:05 | CTR_ITS ---
PROCEDURE INFORMATION: Exam: CT Chest Without Contrast; Diagnostic Exam date and time: 10/21/2024 12:15 PM Age: 84 years old Clinical indication: Chest wall pain; Prior surgery; Surgery date: 6+ months; Surgery type: Stent; Additional info: Back pain/posterior chest wall pain TECHNIQUE: Imaging protocol: Diagnostic computed tomography of the chest without contrast. Radiation optimization: All CT scans at this facility use at least one of these dose optimization techniques: automated exposure control; mA and/or kV adjustment per patient size (includes targeted exams where dose is matched to clinical indication); or iterative reconstruction. COMPARISON: CR XR chest 1V portable [id number] 09/12/2024 11:15 AM RADIATION DOSE METRICS: Total DLP (mGy-cm): 198.02 FINDINGS: Lungs: There is consolidation with air bronchograms in the right lower lobe and right middle lobe. There is also compressive atelectasis of the left lower lobe due to elevated left hemidiaphragm. Subsegmental consolidation is seen in the lingula posteriorly. There is also curvilinear consolidation in the left upper lobe. Calcified left upper lobe pulmonary nodule. Pleural spaces: Very small right pleural effusion posteriorly. Heart: Unremarkable. No cardiomegaly. No pericardial effusion. Lymph nodes: Unremarkable. No enlarged lymph nodes. Vasculature: Unremarkable. No aortic aneurysm. Diaphragm: Severe elevation of the left hemidiaphragm is again noted. Bones/joints: There is generalized osteopenia. Severe thoracic kyphosis is again seen with multiple moderate to severe compression fractures in the thoracic spine. Most of these appear to be relatively chronic but there is a severe compression fracture of what appears to be the T10 vertebral body with increased density or sclerosis and retropulsion of the posteroinferior body into the spinal canal resulting in moderate spinal stenosis. This is best seen on sagittal images. The T10 compression fracture may be acute to subacute. Soft tissues: Unremarkable. CT/CT chest wo con [id number] IMPRESSION: 1. Multiple compression fractures in the thoracic spine with a T10 compression fracture which may be acute to subacute. Exaggerated thoracic kyphosis. 2. Bilateral pulmonary consolidation/compressive atelectasis. Elevated left hemidiaphragm. 3. Very small right pleural effusion.
[2024-10-21 12:33] LABS: Basophils % 0.2 %; Eosinophils % 0.5 %; Hematocrit 35.9 % (36-47); Lymphocytes # 1.2 10^3/uL (0.8-4.8); Lymphocytes % 13.2 %; Mean Corpuscular HGB Conc 30.9 g/dL (30-55); Mean Corpuscular Hemoglobin 29.5 pg (27-33); Mean Corpuscular Volume 95.5 fl (85-98); Mean Platelet Volume 9.4 fL (7.4-10.4); Monocytes # 0.7 10^3/uL (0.2-0.9); Monocytes % 7.7 %; Neutrophils # 6.81 10^3/uL (1.8-7.7); Neutrophils % 77.2 %; Nucleated Red Blood Cells % 0 %; Platelet Count 310 10^3/cmm (157-399); Red Blood Count 3.76 10^6/uL (3.85-5.65); Red Cell Distribution Width 13.8 % (12.1-15.1); White Blood Count 8.82 10^3/uL (3.29-11.43)
[2024-10-21] MEDS: HYDROcodone-acetaminophen 10-325 mg Tablet 1 TAB PO (12:40)
[2024-10-21] MEDS: orphenadrine 30 mg/mL Inj 2 mL IVP (12:41)
[2024-10-21 12:49] LABS: Alanine Aminotransferase 40 U/L (0-33); Albumin Level 3.6 g/dL (3.5-5.2); Alkaline Phosphatase 153 U/L (35-105); Anion Gap 13.4 (5-19); Aspartate Amino Transferase 25 U/L (0-32); Blood Urea Nitrogen 18 mg/dL (8-23); Calcium 9.5 mg/dL (8.5-10.5); Carbon Dioxide 35 mmol/L (22-29); Chloride 93 mmol/L (98-107); Creatinine Clr Calc Pharmacy 34.0441; Globulin 2.9 g/dL (1.3-4.6); Glucose 109 mg/dL (65-115); Osmolality Calculated 290 mOsm/kg (285-295); Sodium 139 mmol/L (136-145); Total Bilirubin 0.6 mg/dL (0.15-1.2); Total Protein 6.5 g/dL (6.6-8.7)
[2024-10-21 12:51] LABS: Potassium 2.4 mmol/L (3.5-5.1)
[2024-10-21 13:18] LABS: Magnesium 1.9 mg/dL (1.7-2.3)
[2024-10-21] MEDS: lidocaine 1% 5 ML in potassium chloride premix 100 ML 26.25 ML IV ×2 (13:46→21:54)
--- NOTE | 2024-10-21 14:08 | PC.NURSE ---
before starting the k-rider, spoke with Dr. Hopkins in regards to the potassium drip that is ordered, this nurse verbalized that pt has a 20g IV to the L AC and asked if a central line was to be started for pt for k-drip Dr. Hopkins voiced that the order can be ran thru the left AC IV that is estb at the ordered rate.
--- NOTE | 2024-10-21 14:59 | W.ED.BACK ---
HPI - Back Pain/Injury General: Chief Complaint: Back Pain/Injury Stated Complaint: back pain Time Seen by Provider: 10/21/24 10:50 Source: patient and EMS Mode of arrival: EMS Limitations: no limitations History of Present Illness: Patient recently history of back problems for years. Has severe scoliosis. Of supposed have back surgery at 1 time she reports. Her back pain is getting worse and worse and today is a 10 out of 10 radiating from the mid back to the upper back. And kind of radiating to the right shoulder blade upper back area. Denies any extremity weakness or numbness. No incontinence. Related Data Home Medications ?Medication ?Instructions ?Recorded ?Confirmed amlodipine 5 mg tablet 5 mg PO QAM 06/27/19 09/24/24 aspirin 81 mg tablet,delayed 81 mg PO QAM 06/27/19 09/24/24 release (Adult Low Dose Aspirin) Held on 09/14/24. Instructions: Resume on 10/05/24. cholecalciferol (vitamin D3) 10 400 unit PO QDAY 06/27/19 09/28/24 mcg (400 unit) capsule docusate sodium 100 mg capsule 100 mg PO QDAY 06/27/19 09/28/24 (Colace) simvastatin 20 mg tablet (Zocor) 20 mg PO QPM 06/27/19 09/28/24 lisinopril 20 mg tablet 20 mg PO DAILY 01/09/21 09/28/24 acetaminophen 650 mg 650 mg PO Q8H PRN Pain 01/13/22 09/24/24 tablet,extended release (Tylenol 8 Hour) hydrocodone 5 mg-acetaminophen 325 1 tab PO Q8H PRN Pain 01/13/22 09/28/24 mg tablet propylene glycol 0.6 % eye drops 1 drp ophthalmic (eye) DAILY PRN 10/29/22 09/28/24 (Systane Balance) Dry Eyes albuterol sulfate 90 mcg/actuation 2 puff inhalation Q6H PRN 09/12/24 09/24/24 aerosol inhaler Shortness Of Breath levothyroxine 88 mcg tablet 88 mcg PO QAM 09/12/24 09/28/24 vit C 250 mg-vit E 90 mg-zinc 40 1 tab PO BID 09/12/24 09/24/24 mg-copper 1 [id number] capsule (PreserVision AREDS-2) Previous Rx's ?Medication ?Instructions ?Recorded nitroglycerin 0.4 mg sublingual 0.4 mg sublingual Q5M PRN chest 07/14/21 tablet (Nitrostat) pain #25 tabs metoprolol tartrate 25 mg tablet 25 mg PO BID #180 tabs 11/26/22 aspirin 325 mg tablet,delayed 325 mg PO DAILY #21 tabs 09/14/24 release nicotine (polacrilex) 4 mg buccal 4 mg mucous membrane Q4H PRN 09/14/24 lozenge Nicotine Cravings #90 ea nicotine 7 mg/24 hr daily 1 patch transdermal DAILY #30 ea 09/14/24 transdermal patch Allergies Allergy/AdvReac Type Severity Reaction Status Date / Time No Known Allergies Allergy Verified 09/28/24 13:46 Review of Systems General: Reports: 10 or more systems reviewed and unremarkable except in HPI and below PFSH ED PFSH: Medical History PAD (peripheral artery disease) History of malignant melanoma History of nonmelanoma skin cancer Elevated diaphragm Diaphragmatic hernia ASHD (arteriosclerotic heart disease) COPD (chronic obstructive pulmonary disease) Myocardial infarction Chronic pain Glucose intolerance Essential hypertension Hypothyroidism Smoker Surgical History S/P angioplasty with stent Family History Sister Diabetes CAD (coronary artery disease) Hypertension Brother CAD (coronary artery disease) Hypertension Social History Smoking and tobacco/nicotine status: unknown if used tobacco/nicotine Alcohol intake: never Substance/Drug Use: never Lives independently: Yes Household members: children Marital status: / service: No Current occupational status: retired Current gender identity: Female Physical Exam Narrative: EXAM NARRATIVE: Ms. Morales is a thin frail appearing elderly female that appears uncomfortable but in no acute distress. She is oriented x 3 well-developed. Head is normal cephalic atraumatic extract movements intact external nose and ears normal. Moist mucous membranes. Chest rise symmetric, lung sounds clear bilaterally heart rate normal and regular rhythm with an S3. Radial pulses 2+ bilaterally. Abdomen nondistended and nontender. Moves all 4 extremities with 5 out of 5 strength. Neurologically oriented with coordination and global strength as well as current nerves II through XII intact. Course Vital Signs: Vital signs: Vital Signs Temperature 98.0 F 10/21/24 10:49 Pulse Rate 79 10/21/24 14:00 Respiratory Rate 17 10/21/24 10:49 Blood Pressure 117/71 10/21/24 14:00 Pulse Oximetry 96 10/21/24 14:00 Oxygen Delivery Me thod Room Air 10/21/24 14:00 Oxygen Flow Rate 2 10/21/24 11:09 MDM - Back Pain/Injury Medical Decision Making Patient with T10 compression fracture likely causing the acute pain she is having. I have discussed the case with Dr. Pal of orthopedics. He is actually orthospine and will consult. However patient will need admission/observation due to her hypokalemia of 2.4. Unsure why she is experiencing hypokalemia. Mag was normal. I have discussed the case with the hospitalist who agrees to admit to hosp obs. K rider has been started. Differential Diagnosis Likely lumbar radiculopathy, strain of lumbar region, pyelonephritis, thoracic back pain, AAA and discitis Medical Records I reviewed the patient's medical records. Labs I reviewed the patient's lab results. 10/21/24 12:27 10/21/24 12:[address] 10/21/24 12:05 IMPRESSION: 1. Multiple compression fractures in the thoracic spine with a T10 compression fracture which may be acute to subacute. Exaggerated thoracic kyphosis. 2. Bilateral pulmonary consolidation/compressive atelectasis. Elevated left hemidiaphragm. 3. Very small right pleural effusion. Laboratory Results WBC 8.82 10^3/uL (3.29-11.43) 10/21/24 12:27 RBC 3.76 10^6/uL (3.85-5.65) L 10/21/24 12:27 Hgb 11.10 g/dL (11.27-16.99) L 10/21/24 12:27 Hct 35.9 % (36-47) L 10/21/24 12:27 MCV 95.5 fl (85-98) 10/21/24 12:27 MCH 29.5 pg (27-33) 10/21/24 12: MCHC 30.9 g/dL (30-55) 10/21/24 12:27 RDW 13.8 % (12.1-15.1) 10/21/24 12:27 Plt Count 310 10^3/cmm (157-399) 10/21/24 12: MPV 9.4 fL (7.4-10.4) 10/21/24 12:27 Neut % (Auto) 77.2 % 10/21/24 12: Lymph % (Auto) 13.2 % 10/21/24 12: [place] % (Auto) 7.7 % 10/21/24 12: Eos % (Auto) 0.5 % 10/21/24 12: Baso % (Auto) 0.2 % 10/21/24 12: Neut # (Auto) 6.81 10^3/uL (1.8-7.7) 10/21/24 12: Lymph # (Auto) 1.2 10^3/uL (0.8-4.8) 10/21/24 12: [place] # (Auto) 0.7 10^3/uL (0.2-0.9) 10/21/24 12: Eos # (Auto) 0.0 10^3/uL (0.0-0.8) 10/21/24 12: Baso # (Auto) 0.0 10^3/uL (0.0-0.1) 10/21/24 12: Nucleated RBC % (auto) 0 % 10/21/24 12: Nucleated RBCs # 0.0 /100WBC 10/21/24 12:27 Sodium 139 mmol/L (136-145) 10/21/24 12:27 Potassium 2.4 mmol/L (3.5-5.1) L* 10/21/24 12:27 Chloride 93 mmol/L (98-107) L 10/21/24 12: Carbon Dioxide 35 mmol/L (22-29) H 10/21/24 12:27 Anion Gap 13.4 (5-19) 10/21/24 12:27 BUN 18 mg/dL (8-23) 10/21/24 12:27 Creatinine 0.5 mg/dL (0.5-0.9) 10/21/24 12:27 GFR Calculation Not Reportable 10/21/24 12:27 Glucose 109 mg/dL (65-115) 10/21/24 12:27 Calculated Osmolality 290 mOsm/kg (285-295) 10/21/24 12:27 Calcium 9.5 mg/dL (8.5-10.5) 10/21/24 12:27 Magnesium 1.9 mg/dL (1.7-2.3) 10/21/24 12:27 Total Bilirubin 0.6 mg/dL (0.15-1.2) 10/21/24 12:27 AST 25 U/L (0-32) 10/21/24 12:27 ALT 40 U/L (0-33) H 10/21/24 12:27 Alkaline Phosphatase 153 U/L (35-105) H 10/21/24 12:27 Total Protein 6.5 g/dL (6.6-8.7) L 10/21/24 12:27 Albumin 3.6 g/dL (3.5-5.2) 10/21/24 12: Globulin 2.9 g/dL (1.3-4.6) 10/21/24 12:27 All radiology interpretation(s) finalized by discharge Critical Care Time Critical Care Time: Critical Care Time: Yes Total Critical Care Time: 32 Attestation: This case had a high probability of a clinically significant, sudden, or life threatening deterioration of this patient's condition which required my full and direct attention, intervention and personal management. Discharge Plan Discharge Patient Disposition: Placed in Observation Clinical Impression: Hypokalemia Compression fracture of T10 vertebra Qualifiers: Encounter type: initial encounter Qualified Code(s): S22.070A - Wedge compression fracture of T9-T10 vertebra, initial encounter for closed fracture Coding Level of Care Code ED Marine Engineering Consultant for Anh Ramirez
--- NOTE | 2024-10-21 17:50 | PM.HP ---
Providers/Chief Complaint Admitting Physician: Moe Hernandez DO Primary Care Provider: Osmar Lo MD Chief Complaint: back pain History of Present Illness Arlin Morales is a 84 year old female With severe kyphosis presents after an abnormal twisting motion while getting out of the car and mid back pain the following day. Patient has had pain from her left hip fracture but that has been improving this back pain is new. In the ER she was found to have acute to subacute T10 fracture with spinal cord impingement. She is also found to have a pneumonia in the Right middle and lower lobes. Lastly she is found to have severe hypokalemia which warranted admission. She had hypokalemia during the admission for the left hip fracture that was supplemented but she was not discharged on any replacement. Thus this time we will send her with supplementation Review of Systems Const: Denies: fever(s) or chills Eyes: Denies: change in vision ENMT: Denies: throat pain or nasal congestion Card: Denies: chest pain or palpitations Resp: Denies: dyspnea or productive cough GI: Denies: abdominal pain, nausea, vomiting or change in stool character : Denies: dysuria Musc: Reports: back pain, extremity pain and limited range of motion Skin/Breast: Denies: rash or lesions Neuro: Denies: headache(s) or dizziness Psych: Denies: anxiety or depression Chris/Lymph: Denies: easy bruising or easy bleeding Medications/Allergies Home Medications ?Medication ?Instructions ?Recorded ?Confirmed ?Last Taken ?Type amlodipine 5 mg tablet 5 mg PO QAM 06/27/19 10/21/24 10/21/24 08:00 History aspirin 81 mg tablet,delayed 81 mg PO QAM 06/27/19 10/21/24 10/21/24 08:00 History release (Adult Low Dose Aspirin) Held on 09/14/24. Instructions: Resume on 10/05/24. cholecalciferol (vitamin D3) 10 400 unit PO QDAY 06/27/19 10/21/24 10/20/24 20:00 History mcg (400 unit) capsule docusate sodium 100 mg capsule 100 mg PO QDAY 06/27/19 10/21/24 10/20/24 History (Colace) simvastatin 20 mg tablet (Zocor) 20 mg PO QPM 06/27/19 10/21/2410/20/25 19:00 History lisinopril 20 mg tablet 20 mg PO DAILY 01/09/21 10/21/24 10/21/24 08:00 History nitroglycerin 0.4 mg sublingual 0.4 mg sublingual Q5M PRN chest 07/14/21 10/21/24 Unknown Rx tablet (Nitrostat) pain #25 tabs acetaminophen 650 mg 650 mg PO Q8H PRN Pain 01/13/22 10/21/24 10/20/24 History tablet,extended release (Tylenol 8 Hour) hydrocodone 5 mg-acetaminophen 325 1 tab PO Q8H PRN Pain 01/13/22 10/21/24 10/21/24 History mg tablet propylene glycol 0.6 % eye drops 1 drp ophthalmic (eye) DAILY PRN 10/29/22 10/21/24 10/20/24 19:00 History (Systane Balance) Dry Eyes metoprolol tartrate 25 mg tablet 25 mg PO BID #180 tabs 11/26/22 10/21/24 10/21/24 08:00 Rx albuterol sulfate 90 mcg/actuation 2 puff inhalation Q6H PRN 09/12/24 10/21/24 Unknown History aerosol inhaler Shortness Of Breath levothyroxine 88 mcg tablet 88 mcg PO QAM 09/12/24 10/21/24 10/21/24 08:00 History vit C 250 mg-vit E 90 mg-zinc 40 1 tab PO BID 09/12/24 10/21/24 10/20/24 17:00 History mg-copper 1 [id number] capsule (PreserVision AREDS-2) Allergies Allergy/AdvReac Type Severity Reaction Status Date / Time No Known Allergies Allergy Verified 09/28/24 13:46 PFSH Acute PFSH: Medical History PAD (peripheral artery disease) History of malignant melanoma History of nonmelanoma skin cancer Elevated diaphragm Diaphragmatic hernia ASHD (arteriosclerotic heart disease) COPD (chronic obstructive pulmonary disease) Myocardial infarction Chronic pain Glucose intolerance Essential hypertension Hypothyroidism Smoker Surgical History S/P angioplasty with stent Family History Sister Diabetes CAD (coronary artery disease) Hypertension Brother CAD (coronary artery disease) Hypertension Social History Smoking and tobacco/nicotine status: unknown if used tobacco/nicotine Alcohol intake: never Substance/Drug Use: never Lives independently: Yes Household members: children Marital status: / service: No Current occupational status: retired Current gender identity: Female Vitals/I&O/Wt Last Vital Signs Temp 98.0 F 10/21/24 10:49 Pulse 67 10/21/24 17:05 Resp 17 10/21/24 10:49 BP 132/71 10/21/24 17:05 Pulse Ox 95 10/21/24 17:05 O2 Del Method Nasal Cannula 10/21/24 17:38 O2 Flow Rate 2 10/21/24 11:09 Weight last 48 hrs Weight 39.916 kg Weight 38.555 kg Physical Exam Narrative: Patient is thin cachectic and actually appears older than her stated age. She is chronically ill-appearing. HEENT: head is normocephalic atraumatic pupils equal round reactive to light and accommodation extraocular muscles are intact there is no scleral icterus neck is supple gentle JVD carotid bruits or lymphadenopathy mucous membranes are moist and pink without lesions or exudates heart: regular normal S1-S2 without loud murmur lungs: have diminished breath sounds Right side no wheezes rales or rhonchi abdome: soft nontender nondistended positive bowel sounds no hepatosplenomegaly extremities: no clubbing cyanosis or edema psychiatric:patient has normal mood and affect lymphatic:no lymphadenopathy palpable back severe kyphosis neuro: a&O x3. non focal Data 10/21/24 12:27 10/21/24 12:27 Other Labs: Magnesium 1.9, ALT slightly elevated at 40 alkaline phos elevated at 153 CT Chest: Radiologist's impression: IMPRESSION: 1. Multiple compression fractures in the thoracic spine with a T10 compression fracture which may be acute to subacute. Exaggerated thoracic kyphosis. 2. Bilateral pulmonary consolidation/compressive atelectasis. Elevated left hemidiaphragm. 3. Very small right pleural effusion. A&P Assessment and plan (1) Hypokalemia: Patient has been given 40 mill equivalents in the ER will need another 80 mill equivalents total. Will try to give orally. (2) Compression fracture of T10 vertebra: Per Dr. Pal who was consulted from the ER (3) Compressive atelectasis: Radiologic interpretation was read Ruiz it states possible airspace disease with air bronchograms which is usually consistent with pneumonia however then the final impression was compressive atelectasis which clinically seems to be most appropriate given her severe kyphosis scoliosis (4) Essential hypertension: Plan Observation overnight for electrolyte replacement. Consultation for T10 fracture and pain management PDMP PDMP Reviewed: Not Reviewed Attestations Medical Necessity Statement*: Placed in observation status do not anticipate greater than 2 midnight stay Coding Level of Care Code Acute Code for Chg Fwd Diagnoses Hypokalemia E87.6 Compression fracture of T10 vertebra S22.070A Encounter type: initial encounter Compressive atelectasis J98.11 Essential hypertension I10
--- NOTE | 2024-10-21 18:05 | PM.HP ---
Providers/Chief Complaint Admitting Physician: Moe Hernandez DO Primary Care Provider: Osmar Lo MD Chief Complaint: back pain History of Present Illness Arlin Morales is a 84 year old female Presents to the ER after twisting to get out of the car yesterday and having subsequent pain today. Patient states that she has been dealing with pain in her left hip but this was much worse and sought medical care. In the emergency room she was found to have a potassium of 2.4 as well as a probable acute T10 fracture with spinal cord impingement. She is admitted for orthopedic consultation and electrolyte replacement. Review of Systems Const: Denies: fever(s) or chills Eyes: Denies: change in vision ENMT: Denies: throat pain or nasal congestion Card: Denies: chest pain or palpitations Resp: Denies: dyspnea or productive cough GI: Denies: abdominal pain, nausea, vomiting or change in stool character : Denies: dysuria Musc: Reports: back pain; Denies: extremity pain Skin/Breast: Denies: rash or lesions Neuro: Denies: headache(s) or dizziness Psych: Denies: anxiety or depression Chris/Lymph: Denies: easy bruising or easy bleeding Medications/Allergies Home Medications ?Medication ?Instructions ?Recorded ?Confirmed ?Last Taken ?Type amlodipine 5 mg tablet 5 mg PO QAM 06/27/19 10/21/24 10/21/24 08:00 History aspirin 81 mg tablet,delayed 81 mg PO QAM 06/27/19 10/21/24 10/21/24 08:00 History release (Adult Low Dose Aspirin) Held on 09/14/24. Instructions: Resume on 10/05/24. cholecalciferol (vitamin D3) 10 400 unit PO QDAY 06/27/19 10/21/24 10/20/24 20:00 History mcg (400 unit) capsule docusate sodium 100 mg capsule 100 mg PO QDAY 06/27/19 10/21/24 10/20/24 History (Colace) simvastatin 20 mg tablet (Zocor) 20 mg PO QPM 06/27/19 10/21/24 10/20/24 19:00 History lisinopril 20 mg tablet 20 mg PO DAILY 01/09/21 10/21/24 10/21/24 08:00 History nitroglycerin 0.4 mg sublingual 0.4 mg sublingual Q5M PRN chest 07/14/21 10/21/24 Unknown Rx tablet (Nitrostat) pain #25 tabs acetaminophen 650 mg 650 mg PO Q8H PRN Pain 01/13/22 10/21/24 10/20/24 History tablet,extended release (Tylenol 8 Hour) hydrocodone 5 mg-acetaminophen 325 1 tab PO Q8H PRN Pain 01/13/22 10/21/24 10/21/24 History mg tablet propylene glycol 0.6 % eye drops 1 drp ophthalmic (eye) DAILY PRN 10/29/22 10/21/24 10/20/24 19:00 History (Systane Balance) Dry Eyes metoprolol tartrate 25 mg tablet 25 mg PO BID #180 tabs 11/26/22 10/21/24 10/21/24 08:00 Rx albuterol sulfate 90 mcg/actuation 2 puff inhalation Q6H PRN 09/12/24 10/21/24 Unknown History aerosol inhaler Shortness Of Breath levothyroxine 88 mcg tablet 88 mcg PO QAM 09/12/24 10/21/24 10/21/24 08:00 History vit C 250 mg-vit E 90 mg-zinc 40 1 tab PO BID 09/12/24 10/21/24 10/20/24 17:00 History mg-copper 1 [id number] capsule (PreserVision AREDS-2) Allergies Allergy/AdvReac Type Severity Reaction Status Date / Time No Known Allergies Allergy Verified 09/28/24 13:46 PFSH Acute PFSH: Medical History PAD (peripheral artery disease) History of malignant melanoma History of nonmelanoma skin cancer Elevated diaphragm Diaphragmatic hernia ASHD (arteriosclerotic heart disease) COPD (chronic obstructive pulmonary disease) Myocardial infarction Chronic pain Glucose intolerance Essential hypertension Hypothyroidism Smoker Surgical History S/P angioplasty with stent Family History Sister Diabetes CAD (coronary artery disease) Hypertension Brother CAD (coronary artery disease) Hypertension Social History Smoking and tobacco/nicotine status: unknown if used tobacco/nicotine Alcohol intake: never Substance/Drug Use: never Lives independently: Yes Household members: children Marital status: / service: No Current occupational status: retired Current gender identity: Female Vitals/I&O/Wt Last Vital Signs Temp 98.0 F 10/21/24 10:49 Pulse 67 10/21/24 17:05 Resp 17 10/21/24 10:49 BP 132/71 10/21/24 17:05 Pulse Ox 95 10/21/24 17:05 O2 Del Method Nasal Cannula 10/21/24 17:38 O2 Flow Rate 2 10/21/24 11:09 10/21/24 10/21/24 10/21/24 06:59 14:59 22:59 Intake Total 105 / 105 Balance 105 / 105 Weight last 48 hrs Weight 39.916 kg Weight 38.555 kg Physical Exam Narrative: Patient is thin and frail chronically ill-appearing ill appearing and appears older than her stated age. HEENT head is normocephalic atraumatic pupils equal and round reactive to light and accommodation extraocular muscles are intact there is no scleral icterus mucous membranes are moist and pink without lesions or exudate neck is supple no JVD carotid bruits lymphadenopathy or JVD heart is regular normal S1-S2 without murmurs clicks gallops or rubs lungs diminished breath sounds in the right base. However her lungs appeared displaced compared to thoracic spine. Abdomen is flat soft nontender nondistended positive bowel sounds no hepatosplenomegaly extremities no clubbing cyanosis or edema back severe kyphosis with scoliosis of the mid to the low thoracic spine. Psychiatric mood and affect are appropriate lymphatic no lymphadenopathy skin no lesions or rashes Neurologic alert and oriented to person place time and situation patient is nonfocal with normal motor and sensory bilaterally Data 10/21/24 12:27 10/21/24 12:27 A&P Assessment and plan (1) Hypokalemia: (2) Compression fracture of T10 vertebra: (3) Compressive atelectasis: (4) Essential hypertension: Plan Patient will have electrolyte replacement with potassium. ER started 40 mill equivalents IV I will give another IV dose as well as an oral dose and recheck in the morning. Dr. Vieyra will evaluate patient for the T10 fracture and spinal cord impingement. Of note patient had hypokalemia prior admission she responded well to supplementation but was not sent home on potassium. I suspect that her low potassium is due to to poor appetite and nutritional status. Patient states that she thinks that she is continuing to lose weight and does not have much of an appetite. She has been informed to eat bananas every day. PDMP PDMP Reviewed: Not Reviewed Attestations Medical Necessity Statement*: Patient requires hospitalization for potassium replacement that could be life-threatening with an arrhythmia if untreated. Coding Level of Care Code Acute Code for [facility] Diagnoses Hypokalemia E87.6 Compression fracture of T10 vertebra S22.070A Encounter type: initial encounter Compressive atelectasis J98.11 Essential hypertension I10
[2024-10-21] MEDS: atorvastatin 40 mg Tablet 20 MG PO (21:53)
[2024-10-21] MEDS: heparin 5,000 unit/mL INJ 1 mL 5000 UNIT SUBCUT (21:53)
[2024-10-21] MEDS: HYDROcodone-acetaminophen 5-325 mg Tablet 1 TAB PO (21:53)
[2024-10-22] VITALS: BP 146/89; PULSE 86; RESP 18; TEMP 36.5; O2SAT 91
[2024-10-22 04:00] VITALS: BP 154/86; PULSE 92; RESP 17; TEMP 36.5; O2SAT 92
[2024-10-22] MEDS: HYDROcodone-acetaminophen 5-325 mg Tablet 1 TAB PO (05:12)
[2024-10-22] MEDS: aspirin 81 mg EC Tablet PO (05:12)
[2024-10-22] MEDS: amlodipine 5 mg Tablet PO (05:12)
[2024-10-22] MEDS: levothyroxine 88 mcg Tablet PO (05:12)
[2024-10-22 06:11] LABS: Anion Gap 14.5 (5-19); Blood Urea Nitrogen 16 mg/dL (8-23); Calcium 9.2 mg/dL (8.5-10.5); Carbon Dioxide 34 mmol/L (22-29); Chloride 99 mmol/L (98-107); Creatinine Clr Calc Pharmacy 32.2782; Glucose 85 mg/dL (65-115); Osmolality Calculated 298 mOsm/kg (285-295); Potassium 3.5 mmol/L (3.5-5.1); Sodium 144 mmol/L (136-145)
[2024-10-22 07:26] VITALS: BP 122/80; PULSE 92; RESP 17; TEMP 36.7; O2SAT 90
--- NOTE | 2024-10-22 08:45 | PM.CONSULT ---
Providers/Reason For Consult Consulting Physician/Specialty*: Hospitalist Reason for Consult*: Compression fracture Attending Physician: Moe Hernandez DO Primary Care Provider: Osmar Lo MD History of Present Illness History of Present Illness Arlin Morales is a 84 year old female presenting the ER with the pain and subsequent has a potassium deficiency. Which was the reason she was admitted. At this point she has multiple compression fractures in her back. She said pain medication has been controlling it. At this point she wants to defer from any type of surgery. Review of Systems Const: Denies: fever(s) or chills Eyes: Denies: change in vision ENMT: Denies: throat pain or nasal congestion Card: Denies: chest pain or palpitations Resp: Denies: dyspnea or productive cough GI: Denies: abdominal pain, nausea, vomiting or change in stool character : Denies: dysuria Musc: Reports: back pain; Denies: extremity pain Skin/Breast: Denies: rash or lesions Neuro: Denies: headache(s) or dizziness Psych: Denies: anxiety or depression Chris/Lymph: Denies: easy bruising or easy bleeding Medications/Allergies Home Medications ?Medication ?Instructions ?Recorded ?Confirmed ?Last Taken ?Type amlodipine 5 mg tablet 5 mg PO QAM 06/27/19 10/21/24 10/21/24 08:00 History aspirin 81 mg tablet,delayed 81 mg PO QAM 06/27/19 10/21/24 10/21/24 08:00 History release (Adult Low Dose Aspirin) Held on 09/14/24. Instructions: Resume on 10/05/24. cholecalciferol (vitamin D3) 10 400 unit PO QDAY 06/27/19 10/21/24 10/20/24 20:00 History mcg (400 unit) capsule docusate sodium 100 mg capsule 100 mg PO QDAY 06/27/19 10/21/24 10/20/24 History (Colace) simvastatin 20 mg tablet (Zocor) 20 mg PO QPM 06/27/19 10/21/24 10/20/24 19:00 History lisinopril 20 mg tablet 20 mg PO DAILY 01/09/21 10/21/24 10/21/24 08:00 History nitroglycerin 0.4 mg sublingual 0.4 mg sublingual Q5M PRN chest 07/14/21 10/21/24 Unknown Rx tablet (Nitrostat) pain #25 tabs acetaminophen 650 mg 650 mg PO Q8H PRN Pain 01/13/22 10/21/24 10/20/24 History tablet,extended release (Tylenol 8 Hour) hydrocodone 5 mg-acetaminophen 325 1 tab PO Q8H PRN Pain 01/13/22 10/21/24 10/21/24 History mg tablet propylene glycol 0.6 % eye drops 1 drp ophthalmic (eye) DAILY PRN 10/29/22 10/21/24 10/20/24 19:00 History (Systane Balance) Dry Eyes metoprolol tartrate 25 mg tablet 25 mg PO BID #180 tabs 11/26/22 10/21/24 10/21/24 08:00 Rx albuterol sulfate 90 mcg/actuation 2 puff inhalation Q6H PRN 09/12/24 10/21/24 Unknown History aerosol inhaler Shortness Of Breath levothyroxine 88 mcg tablet 88 mcg PO QAM 09/12/24 10/21/24 10/21/24 08:00 History vit C 250 mg-vit E 90 mg-zinc 40 1 tab PO BID 09/12/24 10/21/24 10/20/24 17:00 History mg-copper 1 [id number] capsule (PreserVision AREDS-2) Allergies Allergy/AdvReac Type Severity Reaction Status Date / Time No Known Allergies Allergy Verified 09/28/24 13:46 Current Medications Generic Name Dose Route Start Last Admin Trade Name Freq PRN Reason Stop Dose Admin Hydrocodone Bitart/Acetaminophen 1 tab 10/21/24 18:13 10/22/24 05:12 Hydrocodone-Acetaminophen 5-325 Mg Tablet PO 1 tab Q4H PRN Administration MODERATE TO SEVERE PAIN Amlodipine Besylate 5 mg 10/22/24 06:00 10/22/24 05:12 Amlodipine 5 Mg Tablet PO 5 mg QAM VEENA Administration Aspirin 81 mg 10/22/24 06:00 10/22/24 05:12 Aspirin 81 Mg Ec Tablet PO 81 mg QAM VEENA Administration Atorvastatin Calcium 20 mg 10/21/24 18:27 10/21/24 21:53 Atorvastatin 40 Mg Tablet PO 20 mg QPM VEENA Administration Levothyroxine Sodium 88 mcg 10/22/24 06:00 10/22/24 05:12 Levothyroxine 88 Mcg Tablet PO 88 mcg QAM VEENA Administration PFSH Acute PFSH: Medical History PAD (peripheral artery disease) History of malignant melanoma History of nonmelanoma skin cancer Elevated diaphragm Diaphragmatic hernia ASHD (arteriosclerotic heart disease) COPD (chronic obstructive pulmonary disease) Myocardial infarction Chronic pain Glucose intolerance Essential hypertension Hypothyroidism Smoker Surgical History S/P angioplasty with stent Family History Sister Diabetes CAD (coronary artery disease) Hypertension Brother CAD (coronary artery disease) Hypertension Social History Smoking and tobacco/nicotine status: unknown if used tobacco/nicotine Alcohol intake: never Substance/Drug Use: never Lives independently: Yes Household members: children Marital status: / service: No Current occupational status: retired Current gender identity: Female Vitals/I&O/Wt Last Vital Signs Temp 98.1 F 10/22/24 07:26 Pulse 92 10/22/24 07:26 Resp 17 10/22/24 07:26 BP 122/80 10/22/24 07:26 Pulse Ox 90 10/22/24 07:26 O2 Del Method Nasal Cannula 10/22/24 07:26 O2 Flow Rate 2 10/21/24 11:09 10/21/24 10/22/24 10/22/24 22:59 06:59 14:59 Intake Total 105 / 105 105 / 210 Balance 105 / 105 105 / 210 Weight last 48 hrs Weight 89 lb 4.8 oz Weight 88 lb Weight 85 lb Physical Exam Narrative: Alert and oriented x 3 Head is normocephalic atraumatic Respirations are intact No evidence of any rashes or infection 5/5 strength in bilateral upper and lower extremities Sensation intact in all extremities Deep tendon reflexes 2 out of 4 bilateral upper and lower extremities Data 10/21/24 12:27 10/22/24 05:03 A&P Assessment and plan (1) Compression fracture of T10 vertebra: Will treat nonoperatively Follow-up in orthopedic clinic in 1 to 2 weeks. PDMP PDMP Reviewed: Not Reviewed Consult Attestations Medical Necessity Statement: Per primary service Coding Level of Care Code Acute Code for Chg Fwd Diagnoses Compression fracture of T10 vertebra S22.070A Encounter type: initial encounter
[2024-10-22] MEDS: docusate sodium 100 mg Capsule PO (09:43)
[2024-10-22] MEDS: metoprolol tartrate 25 mg Tablet PO (09:43)
[2024-10-22] MEDS: lisinopril 20 mg Tablet PO (09:43)
[2024-10-22] MEDS: heparin 5,000 unit/mL INJ 1 mL 5000 UNIT SUBCUT (09:45)
--- NOTE | 2024-10-22 10:45 | PM.DCS ---
Discharge Providers Date of Admission: 10/21/24 14:36 Date of Discharge: October 22, 2024 Attending Provider at Admission: Moe Hernandez DO Attending Provider at Discharge: Moe Hernandez DO Consults: Dr. Gelacio Pal - orthopedics Primary Care Provider: Osmar Lo MD Diagnoses at Discharge Discharge Diagnosis (1) Compression fracture of T10 vertebra: Status: Acute Qualifiers: Encounter type: initial encounter Qualified Code(s): S22.070A - Wedge compression fracture of T9-T10 vertebra, initial encounter for closed fracture Reason for Visit Reason for Visit: back pain Brief History: Patient states that she was getting out of the car and she twisted her spine. She woke up the next day with worse pain and she proceeded to the emergency room. They did find a T10 compression fracture. But also an abnormal potassium level of 2.4. Hospital Course Hospital Course Patient presented to the ED due to mid thoracic back pain. She was found to have a acute T10 compression fracture. She met with Dr. Pal. She declined any surgeries at this time however I am concerned she might not realize the ease of vertebroplasty to help with pain. She will follow-up with him in 1 week She was also found to be hypokalemic. She required 3 potassium IV boluses. Her potassium increased from 2.4-3.5 today. I believe she is hypokalemic due to poor nutrition. She is continuing to lose weight. She was advised on a increased potassium diet and will be given supplementation on discharge she is to check her potassium in 1 week Physical Exam Narrative: Alert and oriented x 3 Heart: Distant regular no loud murmurs Lungs diminished throughout. Right mid lungs are further diminished Abdomen flat soft nontender nondistended positive bowel sounds Extremities no clubbing cyanosis or edema Discharge Data Studies Completed and Pending Completed Studies During Hospitalization Category Date Time Status CT chest wo con [id number] Stat Cat Scan 10/21/24 12:05 Completed Radiology Impressions Chest CT 10/21/24 12:05 IMPRESSION: 1. Multiple compression fractures in the thoracic spine with a T10 compression fracture which may be acute to subacute. Exaggerated thoracic kyphosis. 2. Bilateral pulmonary consolidation/compressive atelectasis. Elevated left hemidiaphragm. 3. Very small right pleural effusion. Laboratory Results WBC 8.82 10^3/uL (3.29-11.43) 10/21/24 12: RBC 3.76 10^6/uL (3.85-5.65) L 10/21/24 12: Hgb 11.10 g/dL (11.27-16.99) L 10/21/24 12: Hct 35.9 % (36-47) L 10/21/24 12: MCV 95.5 fl (85-98) 10/21/24 12: MCH 29.5 pg (27-33) 10/21/24 12: MCHC 30.9 g/dL (30-55) 10/21/24 12: RDW 13.8 % (12.1-15.1) 10/21/24 12: Plt Count 310 10^3/cmm (157-399) 10/21/24 12: MPV 9.4 fL (7.4-10.4) 10/21/24 12: Neut % (Auto) 77.2 % 10/21/24 12: Lymph % (Auto) 13.2 % 10/21/24 12:27 [place] % (Auto) 7.7 % 10/21/24 12: Eos % (Auto) 0.5 % 10/21/24 12: Baso % (Auto) 0.2 % 10/21/24 12: Neut # (Auto) 6.81 10^3/uL (1.8-7.7) 10/21/24 12: Lymph # (Auto) 1.2 10^3/uL (0.8-4.8) 10/21/24 12: [place] # (Auto) 0.7 10^3/uL (0.2-0.9) 10/21/24 12: Eos # (Auto) 0.0 10^3/uL (0.0-0.8) 10/21/24 12: Baso # (Auto) 0.0 10^3/uL (0.0-0.1) 10/21/24 12: Nucleated RBC % (auto) 0 % 10/21/24 12: Nucleated RBCs # 0.0 /100WBC 10/21/24 12: Sodium 144 mmol/L (136-145) 10/22/24 05:03 Potassium 3.5 mmol/L (3.5-5.1) 10/22/24 05:03 Chloride 99 mmol/L (98-107) 10/22/24 05:03 Carbon Dioxide 34 mmol/L (22-29) H 10/22/24 05:03 Anion Gap 14.5 (5-19) 10/22/24 05:03 BUN 16 mg/dL (8-23) 10/22/24 05:03 Creatinine 0.5 mg/dL (0.5-0.9) 10/22/24 05:03 GFR Calculation Not Reportable 10/22/24 05:03 Glucose 85 mg/dL (65-115) 10/22/24 05:03 Calculated Osmolality 298 mOsm/kg (285-295) H 10/22/24 05:03 Calcium 9.2 mg/dL (8.5-10.5) 10/22/24 05:03 Magnesium 1.9 mg/dL (1.7-2.3) 10/21/24 12:27 Total Bilirubin 0.6 mg/dL (0.15-1.2) 10/21/24 12:27 AST 25 U/L (0-32) 10/21/24 12:27 ALT 40 U/L (0-33) H 10/21/24 12:27 Alkaline Phosphatase 153 U/L (35-105) H 10/21/24 12:27 Total Protein 6.5 g/dL (6.6-8.7) L 10/21/24 12:27 Albumin 3.6 g/dL (3.5-5.2) 10/21/24 12:27 Globulin 2.9 g/dL (1.3-4.6) 10/21/24 12:27 Vitals Last Vital Signs Temp 98.1 F 10/22/24 07:26 Pulse 92 10/22/24 07:26 Resp 17 10/22/24 07:26 BP 122/80 10/22/24 07:26 Pulse Ox 90 10/22/24 07:26 O2 Del Method Nasal Cannula 10/22/24 07:26 O2 Flow Rate 2 10/21/24 11:09 Discharge Plan Discharge Patient Disposition: Home Condition: Stable Prescriptions: New ibuprofen 200 mg Tablet 400 mg PO Q6H PRN (Reason: Mild/Mod Pain Or Temp >/= 101) Qty: 60 0RF potassium chloride [Klor-Con M20] 20 mEq tablet,ER particles/crystals 20 meq PO DAILY Qty: 30 0RF Continued cholecalciferol (vitamin D3) 400 unit capsule 400 unit PO QDAY aspirin [Adult Low Dose Aspirin] 81 mg tablet,delayed release (DR/EC) 81 mg PO QAM docusate sodium [Colace] 100 mg capsule 100 mg PO QDAY amlodipine 5 mg tablet 5 mg PO QAM simvastatin [Zocor] 20 mg tablet 20 mg PO QPM acetaminophen [Tylenol 8 Hour] 650 mg tablet extended release 650 mg PO Q8H PRN (Reason: Pain) lisinopril 20 mg tablet 20 mg PO DAILY nitroglycerin [Nitrostat] 0.4 mg tablet, sublingual 0.4 mg SUBLINGUAL Q5M PRN (Reason: chest pain) Qty: 25 6RF Systane Balance 0.6 % drops 1 drp ophthalmic (eye) DAILY PRN (Reason: Dry Eyes) metoprolol tartrate 25 mg tablet 25 mg PO BID Qty: 180 2RF levothyroxine 88 mcg tablet 88 mcg PO QAM albuterol sulfate 90 mcg/actuation HFA aerosol inhaler 2 puff INHALATION Q6H PRN (Reason: Shortness Of Breath) PreserVision AREDS-2 250-90-40-1 mg Capsule 1 tab PO BID Changed hydrocodone-acetaminophen 5-325 mg tablet 1 tab PO Q4H PRN (Reason: Pain) Qty: 30 0RF Discharge Orders: Discharge Order (Routine); Ordered 10/22/24 Ordered By: Moe Hernandez Other Ambulatory Orders: Basic Metabolic Panel (Routine) Timeframe: 1 Week Facility: [facility] [place] - Location: Lab - Main Lab Ordered By: Moe Hernandez Referrals: Gelacio Pal DO [Physician, Orthopedics] Referral Note: We have notified your physician's clinic of the need for a follow-up appointment to be scheduled. If you have not heard from them within the next 2 business days, please call them directly. Osmar Lo MD [Primary Care Provider, Family Practice] - 4-7 days Referral Note: You will need to call your primary care provider Dr. Lo for a hospital discharge follow up tomorrow for an appointment in 4-7 days. Discharge Diet: As Directed Discharge Activity: Increase activity as tolerated Patient Instructions: Vertebral Compression Fracture (GEN), Hypokalemia (DC), Procedures for Compression Fractures of the Spine (GEN), Opioid Safety Activity Restrictions/Additional Instructions: Follow-up with orthopedic spine clinic in 1 to 2 weeks increase potassium in diet; consider golf course ranger consult Discharge Attestations Time Spent in Discharge Care*: less than 30 min Quality Metrics Clinical Quality Measures [ No reported AMI, CVA or VTE this stay] Coding Level of Care Code Acute Code for Chg Fwd Diagnoses Compression fracture of T10 vertebra S22.070A Encounter type: initial encounter
[2024-10-22 11:41] VITALS: BP 141/83; PULSE 78; RESP 19; TEMP 36.7; O2SAT 92
== END 2024-10-22 13:30 | disposition home or self-care (01) ==
LOC: ER 15:03 → MEDSURG 15:34
PROVIDERS: Admitting Provider Internal Medicine; Emergency Provider Emergency Medicine; PCP Family Medicine; Visit Provider Internal Medicine
DX: S22.070A Wedge compression fracture of T9-T10 vertebra, initial encounter for closed fracture (principal); X50.1XXA Overexertion from prolonged static or awkward postures, initial encounter; Z79.82 Long term (current) use of aspirin; E87.6 Hypokalemia; I73.9 Peripheral vascular disease, unspecified; J44.9 Chronic obstructive pulmonary disease, unspecified; E03.9 Hypothyroidism, unspecified; I10 Essential (primary) hypertension; I25.10 Atherosclerotic heart disease of native coronary artery without angina pectoris; I25.2 Old myocardial infarction; Z82.49 Family history of ischemic heart disease and other diseases of the circulatory system; M41.9 Scoliosis, unspecified; Z95.5 Presence of coronary angioplasty implant and graft
CPT/HCPCS: 36415; 71250; 80048; 80053; 83735; 85025; 96365; 96366; 96372; 96375; 99285; G0378; J1644; J2360; J3480; J9999

== ENCOUNTER 2024-10-29 08:33 | Inpatient (IN) | payer MEDICARE, OTHER, SELFPAY ==
[2024-10-29] VITALS (21 sets, daily range): BP systolic 131–170; BP diastolic 76–94; PULSE 79–108; RESP 16–33; TEMP 36.3–36.6; O2SAT 88–94; BMI 16.0; BMI 18.1
--- NOTE | 2024-10-29 08:37 | XRR_ITS ---
PROCEDURE INFORMATION: Exam: XR Chest Exam date and time: 10/29/2024 8:51 AM Age: 84 years old Clinical indication: Shortness of breath; Additional info: SOB TECHNIQUE: Imaging protocol: Radiologic exam of the chest. Views: 1 view. COMPARISON: CT chest con [id number] 10/21/2024 12:15 PM FINDINGS: Lungs: There is a persistent right basilar opacity, suspicious for a small right pleural effusion and right lower lobe consolidation. Pleural spaces: No pneumothorax. Heart/Mediastinum: There is a large hiatal hernia. The heart appears shifted to the right by the hiatal hernia Bones/joints: There are degenerative changes of the thoracolumbar spine. XR/XR chest 1V portable [id number] IMPRESSION: 1. Large hiatal hernia. 2. Persistent opacity within the right costophrenic angle suspicious for a small right pleural effusion and right lower lobe atelectasis. Pneumonia however is not excluded.
--- NOTE | 2024-10-29 08:41 | W.ED.SOB ---
HPI - SOB/Dyspnea General: Chief Complaint: Shortness of Breath/Dyspnea Stated Complaint: sob Time Seen by Provider: 10/29/24 08:35 Source: patient and EMS Mode of arrival: EMS Limitations: no limitations History of Present Illness: HPI Narrative: 84-year-old female with a long history of COPD wears 2 L oxygen at baseline was having increasing shortness of breath this morning per EMS when they arrived she had walked outside to meet them and was not her oxygen was 61% they gave her breathing treatment she feels much improved. Patient denies any chest pain denies any fevers. She is 95% currently on 2 L Associated symptoms: Deny abdominal pain, chest pain, fever(s), nausea or vomiting Related Data Home Medications ?Medication ?Instructions ?Recorded ?Confirmed amlodipine 5 mg tablet 5 mg PO QAM 06/27/19 10/21/24 aspirin 81 mg tablet,delayed 81 mg PO QAM 06/27/19 10/21/24 release (Adult Low Dose Aspirin) cholecalciferol (vitamin D3) 10 400 unit PO QDAY 06/27/19 10/21/24 mcg (400 unit) capsule docusate sodium 100 mg capsule 100 mg PO QDAY 06/27/19 10/21/24 (Colace) simvastatin 20 mg tablet (Zocor) 20 mg PO QPM 06/27/19 10/21/24 lisinopril 20 mg tablet 20 mg PO DAILY 01/09/21 10/21/24 acetaminophen 650 mg 650 mg PO Q8H PRN Pain 01/13/22 10/21/24 tablet,extended release (Tylenol 8 Hour) propylene glycol 0.6 % eye drops 1 drp ophthalmic (eye) DAILY PRN 10/29/22 10/21/24 (Systane Balance) Dry Eyes albuterol sulfate 90 mcg/actuation 2 puff inhalation Q6H PRN 09/12/24 10/21/24 aerosol inhaler Shortness Of Breath levothyroxine 88 mcg tablet 88 mcg PO QAM 09/12/24 10/21/24 vit C 250 mg-vit E 90 mg-zinc 40 1 tab PO BID 09/12/24 10/21/24 mg-copper 1 [id number] capsule (PreserVision AREDS-2) Previous Rx's ?Medication ?Instructions ?Recorded nitroglycerin 0.4 mg sublingual 0.4 mg sublingual Q5M PRN chest 07/14/21 tablet (Nitrostat) pain #25 tabs metoprolol tartrate 25 mg tablet 25 mg PO BID #180 tabs 11/26/22 hydrocodone 5 mg-acetaminophen 325 1 tab PO Q4H PRN Pain #30 tabs 10/22/24 mg tablet ibuprofen 200 mg tablet 400 mg (2 x 200 mg) PO Q6H PRN 10/22/24 Mild/Mod Pain Or Temp >/= 101 #60 tabs potassium chloride 20 mEq 20 meq PO DAILY #30 tabs 10/22/24 tablet,extended release(part/cryst) (Klor-Con M) Allergies Allergy/AdvReac Type Severity Reaction Status Date / Time No Known Allergies Allergy Verified 10/26/24 07:52 Review of Systems Const: Denies: fever(s), chills, body aches or change in appetite ENMT: Denies: throat pain or dental pain Card: Denies: chest pain Resp: Reports: dyspnea GI: Denies: abdominal pain, nausea, vomiting or diarrhea : Denies: dysuria Musc: Denies: neck pain or back pain Skin/Breast: Denies: rash Neuro: Denies: headache(s) PFSH ED PFSH: Medical History PAD (peripheral artery disease) History of malignant melanoma History of nonmelanoma skin cancer Elevated diaphragm Diaphragmatic hernia ASHD (arteriosclerotic heart disease) COPD (chronic obstructive pulmonary disease) Myocardial infarction Chronic pain Glucose intolerance Essential hypertension Hypothyroidism Smoker Surgical History S/P angioplasty with stent Family History Sister Diabetes CAD (coronary artery disease) Hypertension Brother CAD (coronary artery disease) Hypertension Social History Smoking and tobacco/nicotine status: unknown if used tobacco/nicotine Alcohol intake: never Substance/Drug Use: never Lives independently: Yes Household members: children Marital status: / service: No Current occupational status: retired Current gender identity: Female Physical Exam Const: COMMON NORMALS: patient oriented x3 GENERAL APPEARANCE: in distress HENMT: COMMON NORMALS: normocephalic and atraumatic HEAD & SCALP: normocephalic and atraumatic Eye: COMMON NORMALS: Equal, round and reactive pupils present and EOMs intact bilaterally PUPIL: Yes Equal, round and reactive pupils present Neck/C-Spine: COMMON NORMALS: full ROM and supple Chest: COMMONS NORMALS: normal inspection of the chest and normal palpation of entire chest wall Resp: EFFORT & INSPECTION: Yes tachypneic and Yes respiratory distress AUSCULTATION: crackles Cardio: COMMON NORMALS: regular rate, regular rhythm and No murmurs present (Cardio) RATE: regular rate RHYTHM: regular rhythm GI: COMMON NORMALS: Normal to inspection, nondistended, normoactive bowel sounds present, Soft to palpation, non-tender and no masses PALPATION: Yes Soft to palpation Extremity: COMMON NORMALS: normal to inspection and full ROM Neuro: COMMON NORMALS: patient oriented x3, moves all extremities and no focal motor deficits Psych: COMMON NORMALS: mental status grossly normal, Normal thought process present and cooperative THOUGHT PROCESS: Normal thought process present Skin: COMMON NORMALS: no rashes or lesions noted and no wounds GENERAL SKIN EXAM: no rashes or lesions noted Course Vital Signs: Vital signs: Vital Signs Temperature 97.3 F L 10/29/24 08:33 Pulse Rate 95 10/29/24 08:54 Respiratory Rate 30 H 10/29/24 08:48 Blood Pressure 148/81 10/29/24 08:33 Pulse Oximetry 92 10/29/24 08:48 Oxygen Delivery Me thod Nasal Cannula 10/29/24 08:48 Oxygen Flow Rate 2 10/29/24 08:48 MDM - SOB/Dyspnea Medical Decision Making Patient presents here with shortness of breath she has had a slight cough x-ray shows right lower lobe pneumonia spoke to the hospitalist will admit at this time Medical Records I reviewed the patient's medical records. Lab Data I reviewed the patient's lab results. 10/29/24 08:47 10/29/24 08:47 Labs/Radiology: Radiology Impressions Chest X-Ray 10/29/24 08:37 IMPRESSION: 1. Large hiatal hernia. 2. Persistent opacity within the right costophrenic angle suspicious for a small right pleural effusion and right lower lobe atelectasis. Pneumonia however is not excluded. Laboratory Results WBC 11.28 10^3/uL (3.29-11.43) 10/29/24 08:47 RBC 4.05 10^6/uL (3.85-5.65) 10/29/24 08:47 Hgb 12.00 g/dL (11.27-16.99) 10/29/24 08:47 Hct 38.1 % (36-47) 10/29/24 08:47 MCV 94.1 fl (85-98) 10/29/24 08:47 MCH 29.6 pg (27-33) 10/29/24 08:47 MCHC 31.5 g/dL (30-55) 10/29/24 08:47 RDW 13.9 % (12.1-15.1) 10/29/24 08:47 Plt Count 286 10^3/cmm (157-399) 10/29/24 08:47 MPV 9.5 fL (7.4-10.4) 10/29/24 08:47 Neut % (Auto) 88.2 % 10/29/24 08:47 Lymph % (Auto) 5.9 % 10/29/24 08:47 [place] % (Auto) 4.6 % 10/29/24 08:47 Eos % (Auto) 0.1 % 10/29/24 08:47 Baso % (Auto) 0.1 % 10/29/24 08:47 Neut # (Auto) 9.95 10^3/uL (1.8-7.7) H 10/29/24 08:47 Lymph # (Auto) 0.7 10^3/uL (0.8-4.8) L 10/29/24 08:47 [place] # (Auto) 0.5 10^3/uL (0.2-0.9) 10/29/24 08:47 Eos # (Auto) 0.0 10^3/uL (0.0-0.8) 10/29/24 08:47 Baso # (Auto) 0.0 10^3/uL (0.0-0.1) 10/29/24 08:47 Nucleated RBC % (auto) 0 % 10/29/24 08:47 Nucleated RBCs # 0.0 /100WBC 10/29/24 08:47 Specimen Type Arterial 10/29/24 08:47 Sample Site Brachial, left 10/29/24 08:47 ABG pH 7.49 (7.35-7.45) H 10/29/24 08:47 ABG pCO2 55.5 mmHg (35-45) H 10/29/24 08:47 ABG pO2 58.5 mmHg (80.0-100.0) L 10/29/24 08:47 ABG PO2/FiO2 Ratio 208 10/29/24 08:47 ABG HCO3 42.1 mmol/L (22-26) H 10/29/24 08:47 ABG Base Excess 16.2 mmol/L (-2.0-2.0) H 10/29/24 08:47 [place] Test Pos 10/29/24 08:47 Hematocrit 36.5 % (37-47) L 10/29/24 08:47 Hgb O2 Saturation 90.7 % (95-100) L 10/29/24 08:47 Carboxyhemoglobin 1.4 %THgb (0.4-20.1) 10/29/24 08:47 Methemoglobin 0.2 % (0.4-1.5) L 10/29/24 08:47 Total Hemoglobin 11.9 g/dL (12-16) L 10/29/24 08:47 O2 Delivery Device Nc 10/29/24 08:47 O2 Liters/Min 2.0 % 10/29/24 08:47 FiO2 28.0 % 10/29/24 08:47 Supervisor Nurse ID [place] 10/29/24 08:47 Sodium 133 mmol/L (136-145) L 10/29/24 08:47 Potassium 3.0 mmol/L (3.5-5.1) L 10/29/24 08:47 Chloride 85 mmol/L (98-107) L 10/29/24 08:47 Carbon Dioxide 37 mmol/L (22-29) H 10/29/24 08:47 Anion Gap 14.0 (5-19) 10/29/24 08:47 BUN 14 mg/dL (8-23) 10/29/24 08:47 Creatinine 0.4 mg/dL (0.5-0.9) L 10/29/24 08:47 GFR Calculation Not Reportable 10/29/24 08:47 Glucose 123 mg/dL (65-115) H 10/29/24 08:47 Calculated Osmolality 278 mOsm/kg (285-295) L 10/29/24 08:47 Calcium 9.4 mg/dL (8.5-10.5) 10/29/24 08:47 Total Bilirubin 0.6 mg/dL (0.15-1.2) 10/29/24 08:47 AST 32 U/L (0-32) 10/29/24 08:47 ALT 63 U/L (0-33) H 10/29/24 08:47 Alkaline Phosphatase 181 U/L (35-105) H 10/29/24 08:47 NT-Pro-B Natriuret Pep 1498 pg/mL (0-450) H 10/29/24 08:47 Total Protein 6.8 g/dL (6.6-8.7) 10/29/24 08:47 Albumin 3.8 g/dL (3.5-5.2) 10/29/24 08:47 Globulin 3.0 g/dL (1.3-4.6) 10/29/24 08:47 All radiology interpretation(s) finalized by discharge EKG Data EKG 1: I personally reviewed and interpreted this EKG as follows: EKG Interpretation Date: 10/29/24 EKG interpretation time: 08:43 Interpretation: nsr hr [address] elevation qrs 91 qtc 414 Discharge Plan Discharge Patient Disposition: Admitted As Inpatient Clinical Impression: Community acquired pneumonia, Acute respiratory failure with hypoxia Condition: Stable Coding Level of Care Code ED Unhairing Inspector for Anh Ramirez
--- NOTE | 2024-10-29 08:43 | ECG_ITS ---
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 Facilities: : 1940 Requested By: Andrea Tobin Order Number: [id number] Reading MD: MAHSA WEBSTER Measurements Intervals [place] Rate: 99 P: 26 [place]: 164 QRS: -47 QRSD: 91 T: 86 QT: 358 QTc: 459 Interpretive Statements SINUS RHYTHM WITH FREQUENT SUPRAVENTRICULAR PREMATURE COMPLEXES LEFT AXIS DEVIATION [QRS AXIS < -30] POSSIBLE RIGHT VENTRICULAR CONDUCTION DELAY [RSR (QR) IN V1/V2] NONSPECIFIC T-WAVE ABNORMALITY Compared to ECG 09/12/2024 11:24:39 Left-axis deviation now present T-wave abnormality now present Ventricular premature complex(es) no longer present Myocardial infarct finding no longer present Electronically Signed On 10-30-2024 19:04:59 CDT by MAHSA WEBSTER [email or web address]
[2024-10-29] MEDS: methylPREDNISolone sod succ 125 mg/2 mL INJ IV (08:46)
[2024-10-29] MEDS: albuterol 2.5 mg/3 mL Neb INHALATION (08:47)
[2024-10-29 08:56] LABS: Basophils % 0.1 %; Eosinophils % 0.1 %; Hematocrit 38.1 % (36-47); Lymphocytes # 0.7 10^3/uL (0.8-4.8); Lymphocytes % 5.9 %; Mean Corpuscular HGB Conc 31.5 g/dL (30-55); Mean Corpuscular Hemoglobin 29.6 pg (27-33); Mean Corpuscular Volume 94.1 fl (85-98); Mean Platelet Volume 9.5 fL (7.4-10.4); Monocytes # 0.5 10^3/uL (0.2-0.9); Monocytes % 4.6 %; Neutrophils # 9.95 10^3/uL (1.8-7.7); Neutrophils % 88.2 %; Nucleated Red Blood Cells % 0 %; Platelet Count 286 10^3/cmm (157-399); Red Blood Count 4.05 10^6/uL (3.85-5.65); Red Cell Distribution Width 13.9 % (12.1-15.1); White Blood Count 11.28 10^3/uL (3.29-11.43)
[2024-10-29 08:59] LABS: ABG PCO2 55.5 mmHg (35-45); ABG PH Result 7.49 (7.35-7.45); Arterial Blood Gas Hematocrit 36.5 % (37-47); Base Excess ABG 16.2 mmol/L (-2.0-2.0); Blood Gas Allen Test Pos; Blood Gas Sample Type Arterial; Carboxyhemoglobin 1.4 %THgb (0.4-20.1); HCO3 ABG 42.1 mmol/L (22-26); HGB O2 Sat 90.7 % (95-100); Methemoglobin 0.2 % (0.4-1.5); PO2 ABG 58.5 mmHg (80.0-100.0); Total Hemoglobin 11.9 g/dL (12-16)
[2024-10-29 09:00] LABS: Blood Gas Operator Identificat MONRO; Blood Gas Sample Site Brachial, left; Oxygen Device NC; PO2 FiO2 Ratio Arterial Blood 208
[2024-10-29 09:27] LABS: Alanine Aminotransferase 63 U/L (0-33); Albumin Level 3.8 g/dL (3.5-5.2); Alkaline Phosphatase 181 U/L (35-105); Aspartate Amino Transferase 32 U/L (0-32); Blood Urea Nitrogen 14 mg/dL (8-23); Calcium 9.4 mg/dL (8.5-10.5); Carbon Dioxide 37 mmol/L (22-29); Chloride 85 mmol/L (98-107); Glucose 123 mg/dL (65-115); NT Pro B Type Natriuretic Pept 1498 pg/mL (0-450); Osmolality Calculated 278 mOsm/kg (285-295); Sodium 133 mmol/L (136-145); Total Bilirubin 0.6 mg/dL (0.15-1.2); Total Protein 6.8 g/dL (6.6-8.7)
[2024-10-29 09:28] LABS: Creatinine Clr Calc Pharmacy 30.7235
[2024-10-29] MEDS: cefTRIAXone 1,000 mg SDV 1000 MG IVP (09:39)
[2024-10-29] MEDS: AZITHROMYCIN ADD-Vantage 500 MG in 0.9% NaCl ADD-Vantage 250 ML 250 MG IV (09:40)
--- NOTE | 2024-10-29 09:50 | PC.PHAR ---
Pt takes care of her own medications and can identify them when they are named.
--- NOTE | 2024-10-29 10:23 | P.HP_ITS ---
Providers/Chief Complaint 2 Admitting Physician: Miguel Cruz MD Primary Care Provider: Osmar Lo MD Chief Complaint: sob History of Present Illness Arlin Morales is a 84 year old female who lives at home alone but recently her son Jean-Pierre Morales phone #[phone] has been staying with her. Patient broke her left hip in September and had closed reduction and then open internal fixation with trochanteric nail for intertrochanteric hip fracture by Dr. Doran on 09/12/2024. Patient has severe kyphosis and thoracic compression fractures with T10 being relatively new. She states she was supposed to have back surgery. Recently last 2 days she could not eat or sleep has been coughing but nonproductive. Shortness of breath is new and dyspnea on exertion is new beyond her 2 L/min typical oxygen. Today she is up to 3 L/min she states her appetite is poor just not feeling hungry she does not recall chronic steroids. I do see that she has hypokalemia noted on recent admit 10/21/2024 with thoracic compression fracture of T10 and hypokalemia to potassium of 2.4. The hypokalemia was attributed to poor nutrition and she is recently lost weight from 92 pounds down to 82 pounds in a year. 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 or discharge Neuro no seizures strokes limb weakness Malignancy history negative Hematologic negative for clots Medications/Allergies Home Medications ?Medication ?Instructions ?Recorded ?Confirmed ?Last Taken ?Type amlodipine 5 mg tablet 5 mg PO QAM 06/27/1910/29/ 5 10/28/24 History cholecalciferol (vitamin D3) 10 400 unit PO QDAY 06/2710/29/24 10/28/24 History mcg (400 unit) capsule docusate sodium 100 mg capsule 100 mg PO QDAY 01/10/29/24 10/28/24 History (Colace) simvastatin 20 mg tablet (Zocor) 20 mg PO QPM 06/27/19 10/29/24 10/28/24 History lisinopril 20 mg tablet 20 mg PO DAILY 01/09/21 05/10/2910/28/24 History nitroglycerin 0.4 mg sublingual 0.4 mg sublingual Q5M PRN chest 07/14/21 10/29/24 Unknown Rx tablet (Nitrostat) pain #25 tabs acetaminophen 650 mg 650 mg PO Q8H PRN Pain 01/1310/29/24 10/20/24 History tablet,extended release (Tylenol 8 Hour) propylene glycol 0.6 % eye drops 1 drp ophthalmic (eye ) DAILY PRN 10/29/22 10/29/24 10/20/24 19:00 History (Systane Balance) Dry Eyes metoprolol tartrate 25 mg tablet 25 mg PO BID #180 tab s 11/26/22 10/29/24 10/28/24 Rx albuterol sulfate 90 mcg/actuation 2 puff inhalation Q 6H PRN 09/12/24 10/29/24 Unknown History aerosol inhaler Shortness Of Breath levothyroxine 88 mcg tablet 88 mcg PO QAM 09/12/2410/28/24 History vit C 250 mg-vit E 90 mg-zinc 40 1 tab PO BID 09/12/24 10/29/24 10/28/24 History mg-copper 1 [id number] capsule (PreserVision AREDS-2) hydrocodone 5 mg-acetaminophen 325 1 tab PO Q4H PRN Pa in #30 tabs 10/22/24 10/29/24 10/21/24 Rx mg tablet ibuprofen 200 mg tablet 400 mg (2 x 200 mg) PO Q6H P RN 10/22/24 10/29/24 Unknown Rx Mild/Mod Pain Or Temp >/= 101 #60 tabs potassium chloride 20 mEq 20 meq PO DAILY #30 tabs 10/29/24 10/28/24 Rx tablet,extended release(part/cryst) (Klor-Con M) Allergies Allergy/AdvReac Type Severity Reaction Status Date / Time No Known Allergies Allergy Verified 10/26/24 07:52 PFSH Acute 2 PFSH: Medical History PAD (peripheral artery disease) History of malignant melanoma History of nonmelanoma skin cancer Elevated diaphragm Diaphragmatic hernia ASHD (arteriosclerotic heart disease) COPD (chronic obstructive pulmonary disease) Myocardial infarction Chronic pain Glucose intolerance Essential hypertension Hypothyroidism Smoker Surgical History S/P angioplasty with stent Family History Sister Diabetes CAD (coronary artery disease) Hypertension Brother CAD (coronary artery disease) Hypertension Social History (Updated 10/29/24 @ 10:33 by Miguel Cruz MD) Smoking and tobacco/nicotine status: former use of tobacco/nicotine Quit status (tobacco/nicotine): has quit using Year quit tobacco: August 2024 Alcohol intake: never Substance/Drug Use: never Additional social history: She wants full code as discussed with her today on 10/29/2024 with her son Jean-Pierre Morales present Lives independently: Yes Household members: children Marital status: / service: No Current occupational status: retired Previous occupational history: [employer] in [place] and also had a [employer] shop [facility] Current gender identity: Female Vitals/I&O/Wt Last Vital Signs Temp 97.3 F L 10/29/24 08:33 Pulse 95 10/29/24 08:54 Resp 30 H 10/29/24 08:48 BP 148/81 10/29/24 08:33 Pulse Ox 92 10/29/24 08:48 O2 Del Method Nasal Cannula 10/29/24 08:48 O2 Flow Rate 2 10/29/24 08:48 10/28/24 10/29/24 10/29/24 22:59 06:59 14:59 Intake Total 0 / 0 Balance 0 / 0 Weight last 48 hrs Weight 38.555 kg Physical Exam 2 Narrative: General well-developed thin cachectic female tachypneic CV regular rate and rhythm Lungs poor air movement bilaterally no overt crackles or wheezes Abdomen positive bowel sounds soft Calves no tenderness cords pretrip edema or asymmetry Skin warm and dry Back she has severe kyphosis Data 10/29/24 08:47 10/29/24 08:47 Micro: Microbiology 10/29/24 09:19 Blood Culture - Preliminary Blood SPECIMEN COLLECTED 10/29/24 08:47 Blood Culture - Preliminary Blood SPECIMEN COLLECTED CXR: My impression: X-ray shows severe kyphoscoliosis. There is blunting of the right costophrenic angle A&P Assessment and plan (1) Acute respiratory failure with hypoxia: Patient with severe COPD and now with pneumonia complicating her severe kyphoscoliosis and recent compression fracture. Continue with oxygen. Will check a VBG in the morning (2) Community acquired pneumonia: Continue with Rocephin and azithromycin started in the emergency department. Decadron for inflammation (3) Compression fracture of T10 vertebra: Start Fosamax (4) Compressive atelectasis: Start incentive spirometer (5) Acute exacerbation of chronic obstructive pulmonary disease (COPD): Continue DuoNebs and steroids (6) ASHD (arteriosclerotic heart disease): She has not had cardiac events per her report. She does show coronary calcifications PDMP PDMP Reviewed: Not Reviewed Attestations 2 Medical Necessity Statement*: patient readmitted to hospital with expected greater than 2 midnights for her pneumonia and COPD exacerbation Coding Level of Care Code 83791 Diagnoses Acute respiratory failure with hypoxia J96.01 Community acquired pneumonia J18.9 Compression fracture of T10 vertebra S22.070A Encounter type: initial encounter Compressive atelectasis J98.11 Acute exacerbation of chronic obstructive pulmonary disease (COPD) J44.1 ASHD (arteriosclerotic heart disease) I25.10 Time Spent (min) 70
[2024-10-29 10:55] LABS: Magnesium 1.7 mg/dL (1.7-2.3); Phosphorus 2.9 mg/dL (2.5-4.5)
[2024-10-29 10:56] LABS: Base Excess VBG 14.3 mmol/L (-3.0-3.0); Blood Gas Operator Identificat CAK; Blood Gas Sample Site VENOUS; Blood Gas Sample Type Venous; HCO3 VBG 41.7 mmol/L (24-28); PO2 VBG 18.3 mmHg (25-40); Venous Blood Gas Hematocrit 38.8 % (37-47); pH VBG 7.42 (7.32-7.42)
[2024-10-29 10:58] LABS: PCO2 VBG 64.6 mmHg (41-51)
[2024-10-29] MEDS: ipratropium-albuterol 3 mL Neb INHALATION ×3 (11:48→20:39)
--- OUTSIDE RECORDS SUMMARY | 2024-10-29 12:59 | XMS_ITS | Continuity of Care Document ---
Author Name [facility] Organization [facility] Care Team Providers Care Repairer Veneer Sheet Name Role Phone [facility] Unavailable Unavailable Medications Combined list of outpatient medications from Department of Defense and Veterans Affairs facilities.Medications provided include 1) outpatient medications from the last 15 months, and 2) patient-reported medications. Medication Details Route Status Patient Instructions Prescription Expires Prescription Number Last Dispense Date Ordering Provider Order Date Order Qty Source FLUOROURACI L (FLUOROURAC IL), 5 %, CREAM (G), TOPICAL, MYLAN, 40 g TUBE Active [id number] 4 2023 40 Pharmac y Data Transac tion Service Facilit y HYDROCODONE -ACETAMINOP HEN (HYDROCODON E/ACETAMINO PHEN), 5MG-325MG, TABLET, ORAL, AMNEAL PHARMACE, 100 ea. BOTTLE Active [id number] 4 2023 60 Pharmac y Data Transac tion Service Facilit y HYDROCODONE -ACETAMINOP HEN (HYDROCODON E/ACETAMINO PHEN), 5MG-325MG, TABLET, ORAL, AMNEAL PHARMACE, 100 ea. BOTTLE Active [id number] 4 2023 60 Pharmac y Data Transac tion Service Facilit y HYDROCODONE -ACETAMINOP HEN (HYDROCODON E/ACETAMINO PHEN), 5MG-325MG, TABLET, ORAL, AMNEAL PHARMACE, 100 ea. BOTTLE Active [id number] 4 2023 60 Pharmac y Data Transac tion Service Facilit y HYDROCODONE -ACETAMINOP HEN (HYDROCODON E/ACETAMINO PHEN), 5MG-325MG, TABLET, ORAL, AMNEAL PHARMACE, 100 ea. BOTTLE Active [id number] 4 2023 60 Pharmac y Data Transac tion Service Facilit y HYDROCODONE -ACETAMINOP HEN (HYDROCODON E/ACETAMINO PHEN), 5MG-325MG, TABLET, ORAL, MALLINCKROD T PH, 100 ea. BOTTLE Active [id number] 4 2023 60 Pharmac y Data Transac tion Service Facilit y LEVOTHYROXI NE SODIUM (LEVOTHYROX INE SODIUM), 88MCG, TABLET, ORAL, MYLAN, 1000 ea. BOTTLE Active [id number] 4 2023 90 Pharmac y Data Transac tion Service Facilit y METOPROLOL TARTRATE (metoprolol tartrate), 25 MG, TABLET, ORAL, ADVAGEN PHARMA, 1000 ea. BOTTLE Active [id number] 4 2023 180 Pharmac y Data Transac tion Service Facilit y METOPROLOL TARTRATE (metoprolol tartrate), 25 MG, TABLET, ORAL, ADVAGEN PHARMA, 1000 ea. BOTTLE Active [id number] 4 2023 180 Pharmac y Data Transac tion Service Facilit y Immunizations Combined list of available immunizations from the Department of Defense and Veterans Affairs facilities. Immunization Series Date Given Administered By Site Reaction Lot Number CVX Code Drug Broadband Technician Status Comments Source COVID-19, mRNA, LNP-S, PF, 100 mcg or 50 mcg dose 2020 TURABELIDZE, () Not Given COVID-19, mRNA, LNP-S, PF, 100 mcg or 50 mcg dose DoD COVID-19, mRNA, LNP-S, PF, 100 mcg or 50 mcg dose 2020 TURABELIDZE, () Not Given COVID-19, mRNA, LNP-S, PF, 100 mcg or 50 mcg dose DoD Pneumococcal conjugate PCV 13 2017 SHILOH, () Not Given Pneumococ yumiko conjugate PCV 13 DoD Social History Combined list of available smoking, tobacco, and other social history from Department of Defense and Veterans Affairs facilities. Social History Type Response Date Comment Sour e This section is an empty social history section. [facility]
[2024-10-29] MEDS: sodium chlor 0.9% + KCl 20 mEq 20 MEQ/1,000 ML BAG 100 MEQ IV ×2 (14:10→23:49)
[2024-10-29] MEDS: methylPREDNISolone sod succ 40 mg/mL INJ 30 MG IVP (14:12)
[2024-10-29] MEDS: cholecalciferol (vitamin D3) 1,000 unit Tablet 500 UNIT PO (14:13)
[2024-10-29] MEDS: enoxaparin 30 mg/0.3 mL Syringe SUBCUT (17:08)
[2024-10-29] MEDS: metoprolol tartrate 25 mg Tablet PO (17:09)
[2024-10-29] MEDS: HYDROcodone-acetaminophen 5-325 mg Tablet 1 TAB PO (17:09)
[2024-10-30] VITALS (11 sets, daily range): BP systolic 130–156; BP diastolic 72–86; PULSE 77–105; RESP 17–28; TEMP 36.5–36.9; O2SAT 85–99
[2024-10-30] MEDS: ipratropium-albuterol 3 mL Neb INHALATION ×4 (02:10→19:23)
[2024-10-30 03:56] LABS: Hematocrit 34.3 % (36-47); Lymphocytes # 0.4 10^3/uL (0.8-4.8); Lymphocytes % 4.5 %; Mean Corpuscular HGB Conc 30.6 g/dL (30-55); Mean Corpuscular Hemoglobin 29.8 pg (27-33); Mean Corpuscular Volume 97.4 fl (85-98); Mean Platelet Volume 9.8 fL (7.4-10.4); Monocytes # 0.3 10^3/uL (0.2-0.9); Neutrophils # 7.29 10^3/uL (1.8-7.7); Neutrophils % 90.3 %; Nucleated Red Blood Cells % 0 %; Platelet Count 288 10^3/cmm (157-399); Red Blood Count 3.52 10^6/uL (3.85-5.65); Red Cell Distribution Width 13.9 % (12.1-15.1); White Blood Count 8.07 10^3/uL (3.29-11.43)
[2024-10-30 04:22] LABS: Anion Gap 10.5 (5-19); Blood Urea Nitrogen 17 mg/dL (8-23); Calcium 8.7 mg/dL (8.5-10.5); Carbon Dioxide 36 mmol/L (22-29); Chloride 96 mmol/L (98-107); Creatinine Clr Calc Pharmacy 32.9285; Glucose 128 mg/dL (65-115); Osmolality Calculated 291 mOsm/kg (285-295); Potassium 3.5 mmol/L (3.5-5.1); Sodium 139 mmol/L (136-145)
[2024-10-30] MEDS: levothyroxine 88 mcg Tablet PO (06:05)
[2024-10-30] MEDS: amlodipine 5 mg Tablet PO (06:05)
[2024-10-30] MEDS: cholecalciferol (vitamin D3) 1,000 unit Tablet 500 UNIT PO (09:01)
[2024-10-30] MEDS: docusate sodium 100 mg Capsule PO (09:01)
[2024-10-30] MEDS: calcium carbonate 500 mg Chew Tablet 1000 MG PO (09:01)
[2024-10-30] MEDS: ATORVASTATIN 10 MG TABLET 20 MG PO (09:01)
[2024-10-30] MEDS: potassium chloride ER 20 mEq Tablet PO (09:02)
[2024-10-30] MEDS: azithromycin 250 mg Tablet PO (09:02)
[2024-10-30] MEDS: metoprolol tartrate 25 mg Tablet PO ×2 (09:02→17:12)
[2024-10-30] MEDS: cefTRIAXone 1,000 mg SDV 1000 MG IVP (09:02)
[2024-10-30] MEDS: lisinopril 20 mg Tablet PO (09:02)
[2024-10-30] MEDS: sodium chlor 0.9% + KCl 20 mEq 20 MEQ/1,000 ML BAG 100 MEQ IV (09:20)
[2024-10-30] MEDS: FUROsemide 10 mg/mL SDV 2mL 20 MG IVP (14:00)
--- NOTE | 2024-10-30 14:36 | PM.PN ---
Subjective Subjective: Clinically worse this afternoon. Oxygen requirements up to 6 L/min via nasal cannula. Patient typically uses 2 L/min and was on this until this morning. Noted to be tachypneic with respiratory rate up to 28/min currently. Hemoglobin at 10.5. Medications: Reviewed: Yes Vitals/I&O/Wt Last Vital Signs Temp 98.0 F 10/30/24 11:07 Pulse 98 10/30/24 13:15 Resp 28 H 10/30/24 13:15 BP 130/72 10/30/24 11:07 Pulse Ox 90 10/30/24 13:15 O2 Del Method Nasal Cannula 10/30/24 13:15 O2 Flow Rate 6 10/30/24 13:15 10/29/24 10/30/24 10/30/24 22:59 06:59 14:59 Intake Total 120 / 370 1025 / 1395 1411.667 / 1411.667 Balance 120 / 370 1025 / 1395 1411.667 / 1411.667 Weight last 48 hrs Weight 41.322 kg Weight 37.875 kg Weight 38.555 kg Physical Exam Narrative: General: Chronically ill-appearing lady with severe kyphoscoliosis. HEENT: PERRLA, pupils bilaterally equal and reactive, pallors not present Chest: Crackles to auscultation bilaterally lower lobes CVS: S1-S2 regular, no murmurs, no tachycardia, no gallops, no rubs Abdomen: Soft, nontender, no organomegaly, bowel sounds present Neuro: No focal deficits, no facial deformity, AO x3, power 5/5 in all limbs Data 10/30/24 02:59 10/30/24 02:59 Micro: Microbiology 10/29/24 09:19 Blood Culture - Preliminary Blood NEGATIVE TO DATE 10/29/24 08:47 Blood Culture - Preliminary Blood NEGATIVE TO DATE A&P Assessment and plan (1) Acute respiratory failure with hypoxia: Patient with severe COPD and now with pneumonia complicating her severe kyphoscoliosis and recent compression fracture. Continue with oxygen. Will check a VBG in the morning (2) Community acquired pneumonia: Continue with Rocephin and azithromycin started in the emergency department. Decadron for inflammation (3) Compression fracture of T10 vertebra: Start Fosamax (4) Compressive atelectasis: Start incentive spirometer (5) Acute exacerbation of chronic obstructive pulmonary disease (COPD): Continue DuoNebs and steroids (6) ASHD (arteriosclerotic heart disease): She has not had cardiac events per her report. She does show coronary calcifications Plan October 30, 2024 Patient is noted to have oxygen requirements increased to 6 L/min supplemental O2 today. She is tachypneic in conversation. Crackles to auscultation bilaterally. Add Lasix 20 mg IV x 1. Discontinue IV fluids. Add methylprednisolone 40 mg IV every 12 hours and budesonide 0.5 mg twice daily inhalation in addition to scheduled ipratropium and elation every 6 hours. Monitor for improvement with above changes. PDMP PDMP Reviewed: Not Reviewed Attestations Medical Necessity Statement*: Worsening respiratory status today. DC fluids, add Lasix inhaled steroids and IV steroids today. Coding Level of Care Code Acute Code for [facility] Fwd Diagnoses Acute respiratory failure with hypoxia J96.01 Community acquired pneumonia J18.9 Compression fracture of T10 vertebra S22.070A Encounter type: initial encounter Compressive atelectasis J98.11 Acute exacerbation of chronic obstructive pulmonary disease (COPD) J44.1 ASHD (arteriosclerotic heart disease) I25.10
[2024-10-30] MEDS: methylPREDNISolone sod succ 40 mg/mL INJ IVP (15:25)
[2024-10-30] MEDS: enoxaparin 30 mg/0.3 mL Syringe SUBCUT (17:11)
[2024-10-30] MEDS: budesonide 0.5 mg/2 mL Neb INHALATION (19:23)
[2024-10-31] VITALS (12 sets, daily range): BP systolic 147–176; BP diastolic 72–96; PULSE 73–92; RESP 16–24; TEMP 36.3–36.6; O2SAT 87–95
[2024-10-31] MEDS: ipratropium-albuterol 3 mL Neb INHALATION ×4 (01:39→20:18)
[2024-10-31] MEDS: methylPREDNISolone sod succ 40 mg/mL INJ IVP ×2 (03:06→15:03)
[2024-10-31] MEDS: levothyroxine 88 mcg Tablet PO (06:00)
[2024-10-31] MEDS: amlodipine 5 mg Tablet PO (06:00)
[2024-10-31 06:19] LABS: Basophils % 0.1 %; Hematocrit 40.3 % (36-47); Lymphocytes # 0.4 10^3/uL (0.8-4.8); Lymphocytes % 3.2 %; Mean Corpuscular HGB Conc 30.5 g/dL (30-55); Mean Corpuscular Hemoglobin 30.1 pg (27-33); Mean Corpuscular Volume 98.5 fl (85-98); Mean Platelet Volume 9.4 fL (7.4-10.4); Monocytes # 0.4 10^3/uL (0.2-0.9); Monocytes % 3.2 %; Neutrophils # 10.16 10^3/uL (1.8-7.7); Neutrophils % 92.9 %; Nucleated Red Blood Cells % 0 %; Platelet Count 305 10^3/cmm (157-399); Red Blood Count 4.09 10^6/uL (3.85-5.65); Red Cell Distribution Width 14.1 % (12.1-15.1); White Blood Count 10.94 10^3/uL (3.29-11.43)
[2024-10-31 06:36] LABS: Alanine Aminotransferase 55 U/L (0-33); Albumin Level 3.8 g/dL (3.5-5.2); Alkaline Phosphatase 178 U/L (35-105); Anion Gap 12.3 (5-19); Aspartate Amino Transferase 24 U/L (0-32); Blood Urea Nitrogen 16 mg/dL (8-23); Calcium 9.4 mg/dL (8.5-10.5); Carbon Dioxide 37 mmol/L (22-29); Chloride 91 mmol/L (98-107); Creatinine Clr Calc Pharmacy 32.9285; Globulin 2.8 g/dL (1.3-4.6); Glucose 132 mg/dL (65-115); Osmolality Calculated 287 mOsm/kg (285-295); Potassium 3.3 mmol/L (3.5-5.1); Sodium 137 mmol/L (136-145); Total Bilirubin 0.4 mg/dL (0.15-1.2); Total Protein 6.6 g/dL (6.6-8.7)
[2024-10-31] MEDS: metoprolol tartrate 25 mg Tablet PO ×2 (08:15→17:40)
[2024-10-31] MEDS: ATORVASTATIN 10 MG TABLET 20 MG PO (08:16)
[2024-10-31] MEDS: cefTRIAXone 1,000 mg SDV 1000 MG IVP (08:16)
[2024-10-31] MEDS: cholecalciferol (vitamin D3) 1,000 unit Tablet 500 UNIT PO (08:16)
[2024-10-31] MEDS: azithromycin 250 mg Tablet PO (08:16)
[2024-10-31] MEDS: calcium carbonate 500 mg Chew Tablet 1000 MG PO (08:16)
[2024-10-31] MEDS: potassium chloride ER 20 mEq Tablet PO (08:16)
[2024-10-31] MEDS: lisinopril 20 mg Tablet PO (08:16)
--- NOTE | 2024-10-31 09:16 | XRR_ITS ---
PROCEDURE INFORMATION: Exam: XR Chest Exam date and time: 10/31/2024 9:56 AM Age: 84 years old Clinical indication: Shortness of breath; Prior surgery; Surgery date: 6+ months; Surgery type: Stent; Additional info: Assess for left pneumothorax TECHNIQUE: Imaging protocol: Radiologic exam of the chest. Views: 1 view. COMPARISON: CR (CHEST, ) 10/29/2024 8:51 AM FINDINGS: Lungs: Lung volumes are markedly decreased in part secondary to severe elevation left hemidiaphragm, unchanged. There are increased indistinct interstitial opacities right mid-lower lung zone that may in part be secondary to CHF. There is also right basilar atelectasis and small effusion that appears to progressed from previous exam. Pleural spaces: No pneumothorax. Heart/Mediastinum: Cardiac silhouette is difficult to assess as it is obscured by the elevated hemidiaphragm. Bones/joints: There are multiple small indistinct bony radiolucencies that would be better assessed on CT examination concerning for bone metastasis or multiple myeloma. XR/XR chest 1V portable [id number] IMPRESSION: 1. Negative for pneumothorax. 2. Additional findings as discussed above.
[2024-10-31] MEDS: budesonide 0.5 mg/2 mL Neb INHALATION ×2 (09:29→20:18)
--- NOTE | 2024-10-31 10:20 | PC.CHAP ---
Pastoral Care Encounter/Spiritual Assessment Type of Contact [] Declined check writer salesperson visit [] Patient/Family/Request visit [] Outpatient visit [] Follow-up visit [] Physician referral [] Code/Alert [x] Routine visit [] Staff referral [] Actively dying [] Patient sleeping [x] Family support [] [] Out of room [] Palliative care [] [] Receiving care in room [] Pre-surgical visit [] Trauma [] Long length of stay [] ICU visit [] Other: Relational/Emotional Strength [x] Patient feels connected with others/family/visitors/staff [] Distress [] Loneliness/isolation [] Abandonment Spirituality of Patient [x] Person of [place] [] Attends Moravian of their [place] [x] Believes in Prayer [] Reads Bible or Druze materials [] There are Spiritual issues to be addressed [employer] Interventions [x] Prayer [] Active listening [x] Non-anxious presence [x] Spiritual/emotional support [] Crisis/trauma care [] Spiritual counseling [] Bereavement support [] Provided bereavement packet [] Provided Bible/devotional materials [] Provided toy/stuffed animal, coloring book to patient or family member [] Provided Communion [] Anointing/[place] [] Salvation [x] Completed spiritual assessment [] Other: Impact on Illness or Injury [] Angry [] Fearful [] Anxious [] Often cries [] Exhaustion [] Unable to work [] Unable to attend tenriism [] Unable to walk/stand [] Unable to read [] Unable to drive [] Unable to eat/drink [] Unable to sleep [] Unable to be with family [] Patient intubated [] Other: Summary Time spent with patient 5 min
--- NOTE | 2024-10-31 15:01 | P.PN_ITS ---
Subjective 2 Subjective: Patient continues to have high oxygen requirement at 6 L/min. Minimal activity such as getting out from bed to edge of bed resulted in oxygen saturation dropping to 82%. On auscultation today there was noted to be diminished breath sounds in the left lower lobe. Stat chest x-ray was obtained due to concern for pneumothorax. Study were negative to the same however did show increased interstitial opacities in the right mid to lower lung zone and small effusion. Patient is otherwise clinically appearing to be euvolemic. Medications: Reviewed: Yes Vitals/I&O/Wt Last Vital Signs Temp 97.4 F L 10/31/24 11:52 Pulse 84 10/31/24 13:48 Resp 20 H 10/31/24 13:48 BP 155/96 10/31/24 11:52 Pulse Ox 93 10/31/24 13:48 O2 Del Method Nasal Cannula 10/31/24 13:48 O2 Flow Rate 7 10/31/24 13:48 10/31/24 10/31/24 10/31/24 06:59 14:59 22:59 Intake Total 30 / 1486.667 360 / 360 Balance 30 / 1486.667 360 / 360 Weight last 48 hrs Weight 41.322 kg Physical Exam 2 Narrative: General: Patient is a mouth breather. Mildly tachypneic with respiratory rate of 20/min. Chronically ill-appearing cachectic. HEENT: PERRLA, pupils bilaterally equal and reactive, pallors not present Chest: Reduced breath sounds in the left lower lobe. CVS: S1-S2 regular, no murmurs, no tachycardia, no gallops, no rubs Abdomen: Soft, nontender, no organomegaly, bowel sounds present Neuro: No focal deficits, no facial deformity, AO x3, power 5/5 in all limbs Extremities: No edema clubbing or cyanosis Data 10/31/24 06:05 10/31/24 06:05 A&P Assessment and plan (1) Acute respiratory failure with hypoxia: Patient with severe COPD and now with pneumonia complicating her severe kyphoscoliosis and recent compression fracture. Continue with oxygen. Will check a VBG in the morning (2) Community acquired pneumonia: Continue with Rocephin and azithromycin started in the emergency department. Decadron for inflammation (3) Compression fracture of T10 vertebra: Start Fosamax (4) Compressive atelectasis: Start incentive spirometer (5) Acute exacerbation of chronic obstructive pulmonary disease (COPD): Continue DuoNebs and steroids (6) ASHD (arteriosclerotic heart disease): She has not had cardiac events per her report. She does show coronary calcifications Plan October 30, 2024 Patient is noted to have oxygen requirements increased to 6 L/min supplemental O2 today. She is tachypneic in conversation. Crackles to auscultation bilaterally. Add Lasix 20 mg IV x 1. Discontinue IV fluids. Add methylprednisolone 40 mg IV every 12 hours and budesonide 0.5 mg twice daily inhalation in addition to scheduled ipratropium and elation every 6 hours. Monitor for improvement with above changes. October 31, 2024 Patient continues to have increased oxygen requirement at 7 L/min today. Reduced opacification noted over the right lower lobe. Hypoinflation of the left side. Likely a combination of atelectasis, pneumonia. Encourage incentive spirometry. Continue ceftriaxone and azithromycin. Check MRSA nasal screen. If positive will add IV vancomycin additionally. Noted to have pulmonary vascular congestion today, may be related to use of IV fluids until yesterday. Repeat Lasix 20 mg IV x 1 today. Urine output is not accurately charted as patient is incontinent and urinating in the diaper. Continue IV steroids at methylprednisolone 40 mg every 12 hours. Patient's family including her son, daughter and granddaughter at bedside today. I went over several chest x-ray dating back to 2020. Compared to 2020, patient has had persistent elevation of the left hemidiaphragm. She has never had any cardiothoracic surgery. During the course of this timeframe, she has had worsening kyphosis, reduced lung volumes, and has suffered vertebral fractures which are further limiting her expansion. At the baseline patient does have COPD with a chronic home oxygen requirement which adds to her list of respiratory comorbidities. Compared to August 2024 to currently, there is noted to be more pronounced severe elevation of the left hemidiaphragm and poor lung volumes. Given the above, overall patient is at high risk of respiratory morbidity. Discussed with her CODE STATUS again today in the presence of several family members and she indicates she would like to remain full code. She understands that should her respiratory status continue to worsen and she ends up requiring mechanical ventilation it may be very difficult to extubate. She is currently weak, deconditioned and would likely benefit from PT over the next few days to get back to her baseline level of functioning. She has recently had a hip fracture, and now has additionally noted multiple compression fractures in the thoracic spine with a newer T10 fracture with exaggerated thoracic kyphosis. Will order a PT/OT assessment. PDMP PDMP Reviewed: Not Reviewed Attestations 2 Medical Necessity Statement*: PT/OT assessment, deconditioning, iv abx for pneumonia, iv steroids , iv lasix Coding Level of Care Code Acute Code for [facility] Fwd Diagnoses Acute respiratory failure with hypoxia J96.01 Community acquired pneumonia J18.9 Compression fracture of T10 vertebra S22.070A Encounter type: initial encounter Compressive atelectasis J98.11 Acute exacerbation of chronic obstructive pulmonary disease (COPD) J44.1 ASHD (arteriosclerotic heart disease) I25.10
--- NOTE | 2024-10-31 15:08 | USCV_ITS ---
Arlin Morales Age: 84 Gender: F : 1940 Exam Date: 10/31/2024 19:22 Ordering Phys: Marisol Dunn MD Technologist: SARMAD Exam Location: [facility] [place] Indication: estimate EF LIMITED STUDY REQUESTED BP: 155 / 96 HR: Rhythm: Sinus Technical Quality: Adequate MEASUREMENTS (Male / Female) Normal Values 2D ECHO LV Diastolic Diameter PLAX 3.5 cm 4.2 - 5.9 / 3.9 - 5.3 cm IVS Diastolic Thickness 1.3 cm 0.6 - 1.0 / 0.6 - 0.9 cm IVS Systolic Thickness 1.4 cm LVPW Diastolic Thickness 1.3 cm 0.6 - 1.0 / 0.6 - 0.9 cm LVPW Systolic Thickness 1.7 cm LV Ejection Fraction 2D Teich 71.3 % LV Ejection Fraction MOD 4C 53.2 % LV Ejection Fraction MOD 2C 47.2 % LV Ejection Fraction 2C AL 48.2 % FINDINGS Left Ventricle Normal left ventricular size, systolic function and wall thickness, with no regional wall motion abnormalities. Left ventricular ejection fraction is estimated at 55%. Right Ventricle Mildly increased right ventricular size. Right Atrium Left Atrium Mitral Valve Aortic Valve Tricuspid Valve Pulmonic Valve Pericardium Aorta IVC CONCLUSIONS Limited echocardiogram Normal left ventricular size, systolic function and wall thickness, with no regional wall motion abnormalities. Left ventricular ejection fraction is estimated at 55%. Mildly increased right ventricular size. There is no pericardial effusion. Bronwyn Garcia MD (Electronically Signed) Final Date: 01 Nov 2024 13:05 S
[2024-10-31] MEDS: FUROsemide 10 mg/mL SDV 2mL 20 MG IVP (15:21)
[2024-10-31] MEDS: enoxaparin 30 mg/0.3 mL Syringe SUBCUT (17:40)
[2024-10-31 20:03] LABS: MRSA PCR OZH (swab) NOT DETECTED (Not Detecte)
[2024-11-01] VITALS (11 sets, daily range): BP systolic 00–177; BP diastolic 0–80; PULSE 0–92; RESP 18–19; TEMP 36.4–36.6; O2SAT 0–96
[2024-11-01] MEDS: ipratropium-albuterol 3 mL Neb INHALATION ×2 (01:56→07:20)
[2024-11-01] MEDS: methylPREDNISolone sod succ 40 mg/mL INJ IVP (02:41)
[2024-11-01 05:44] LABS: Glucose Point of Care 183 mg/dL (70-110)
[2024-11-01 05:51] LABS: Hematocrit 41.9 % (36-47); Lymphocytes # 0.4 10^3/uL (0.8-4.8); Lymphocytes % 3.4 %; Mean Corpuscular HGB Conc 30.1 g/dL (30-55); Mean Corpuscular Hemoglobin 29.3 pg (27-33); Mean Corpuscular Volume 97.4 fl (85-98); Mean Platelet Volume 9.7 fL (7.4-10.4); Monocytes # 0.4 10^3/uL (0.2-0.9); Monocytes % 4.2 %; Neutrophils % 91.6 %; Nucleated Red Blood Cells % 0 %; Platelet Count 295 10^3/cmm (157-399); Red Cell Distribution Width 13.8 % (12.1-15.1); White Blood Count 10.59 10^3/uL (3.29-11.43)
[2024-11-01 06:04] LABS: Base Excess VBG 19.3 mmol/L (-3.0-3.0); Blood Gas Operator Identificat JDB; Blood Gas Sample Site Not specified; Blood Gas Sample Type Venous; HCO3 VBG 51.1 mmol/L (24-28); PO2 VBG 59.7 mmHg (25-40); Venous Blood Gas Hematocrit 41.1 % (37-47); pH VBG 7.31 (7.32-7.42)
--- NOTE | 2024-11-01 06:06 | PC.NURSE ---
nurse attempted to give pt meds, pt opening eyes but unable to keep eyes open, mumble is verbal response, pt sweating and clammy, blood sugar 183, BP 129/69, pulse 72, resp 20 O2 sat 93 on heated highflow 35/60. Dr. Cruz notified, order received for VBG. meds wasted due to pt lethargy
[2024-11-01 06:07] LABS: Alanine Aminotransferase 55 U/L (0-33); Alkaline Phosphatase 190 U/L (35-105); Anion Gap 9.9 (5-19); Aspartate Amino Transferase 24 U/L (0-32); Blood Urea Nitrogen 20 mg/dL (8-23); Calcium 9.5 mg/dL (8.5-10.5); Chloride 90 mmol/L (98-107); Creatinine Clr Calc Pharmacy 32.1332; Globulin 3.1 g/dL (1.3-4.6); Glucose 193 mg/dL (65-115); Osmolality Calculated 302 mOsm/kg (285-295); Sodium 142 mmol/L (136-145); Total Bilirubin 0.5 mg/dL (0.15-1.2); Total Protein 7.1 g/dL (6.6-8.7)
[2024-11-01 06:32] LABS: Carbon Dioxide 45 mmol/L (22-29); Potassium 2.9 mmol/L (3.5-5.1)
[2024-11-01] MEDS: budesonide 0.5 mg/2 mL Neb INHALATION (07:20)
[2024-11-01 08:08] LABS: Oxygen Device HHFNC
[2024-11-01] MEDS: lidocaine 1% 5 ML in potassium chloride premix 100 ML 52.5 ML IV (08:12)
[2024-11-01 08:14] LABS: ABG PH Result 7.32 (7.35-7.45); Arterial Blood Gas Hematocrit 37.7 % (37-47); Base Excess ABG 21.4 mmol/L (-2.0-2.0); Blood Gas Operator Identificat AMH; Blood Gas Sample Site Brachial, right; Blood Gas Sample Type Arterial; HCO3 ABG 52.7 mmol/L (22-26); Oxygen Device BIPAP; PO2 ABG 91.1 mmHg (80.0-100.0); PO2 FiO2 Ratio Arterial Blood 182
[2024-11-01 08:25] LABS: Glucose Point of Care 175 mg/dL (70-110)
--- NOTE | 2024-11-01 09:24 | PC.SOCIAL ---
IMM Updated Updated pt's family on IMM. No questions voiced. Provided pt a copy. Initialed, dated, & timed a copy & placed in chart.
[2024-11-01] MEDS: morphine 4 mg/mL SDV 1 mL IVP ×2 (10:25→11:08)
[2024-11-01] MEDS: LORazepam 1 MG/0.5 ML injection 2 MG IVP (10:38)
--- NOTE | 2024-11-01 11:30 | PC.OT ---
Patient d/c from OT due to being placed on comfort care measures
--- NOTE | 2024-11-01 11:42 | PC.NURSE ---
Notified Dr. Dunn patient passed at [id number]
--- NOTE | 2024-11-01 11:43 | PC.NURSE ---
TOD 1140. Verified with Miriam CUELLO. Dr. Dunn notified.
--- NOTE | 2024-11-01 15:28 | PM.DDS ---
Discharge Providers DDS Date of Admission: 10/29/24 09:28 Date Summary Completed: 11/01/24 Attending Provider at Admission: Miguel Cruz MD Time of : 11:40 Attending Provider at Discharge: Marisol Dunn MD Primary Care Provider: Osmar Lo MD Diagnoses Hospital Diagnoses (1) Acute respiratory failure with hypoxia: (2) Community acquired pneumonia: (3) Compression fracture of T10 vertebra: Qualifiers: Encounter type: initial encounter Qualified Code(s): S22.070A - Wedge compression fracture of T9-T10 vertebra, initial encounter for closed fracture (4) Compressive atelectasis: (5) Acute exacerbation of chronic obstructive pulmonary disease (COPD): (6) ASHD (arteriosclerotic heart disease): Reason for Visit Reason for Visit sob Summary Date and Time of Date of : 11/01/24 Time of : 11:40 Summary Summary: Arlin Morales is a 84 year old female with a past medical history of COPD, severe kyphoscoliosis, recent hip fracture in September 2024 for which she underwent surgical fixation. She was recently admitted to the hospital on October 21, 2024 after presenting with back pain and electrolyte disturbances. CT of the chest performed on this day had shown consolidation with air bronchograms in the right lower lobe and right middle lobe. There was subsegmental consolidation noted in the lingula posteriorly. She was noted to have severe thoracic kyphosis and multiple moderate to severe compression fractures in the thoracic spine most of which appear to be chronic however and fracture at T10 vertebral body with increased density or sclerosis was thought to be acute to subacute. She declined kyphoplasty at that time. She was discharged on October 22, 2024 but returned to the hospital on October 29, 2024 with increased coughing and a nonproductive cough. Patient typically was on 2 L/min supplemental oxygen but during the course of admission oxygen requirements kept climbing initially to 3 L/min and then going up to 6 and 10 L/min. She was cachectic with weight loss down to 82 pounds. Review of her thoracic spine MRI from September 11, 2024 had shown significantly increased kyphosis and signal abnormalities within several of the vertebral bodies which had raised suspicion for areas of edema versus metastatic lesions.during this current admission she was receiving treatment with ceftriaxone and azithromycin. She received doses of Lasix intravenously for noted pulmonary vascular congestion on chest x-ray. She received steroids methylprednisolone intravenously additionally. There were extensive goals of care discussion performed on 10/31/2024. Family was at bedside during this admission. Explained extensively that compared to 2020 patient has had persistent severe elevation of the left hemidiaphragm. During the course of this timeframe, she has had worsening kyphosis, reduced lung volumes, and has suffered vertebral fractures which are further limiting her expansion. Given the above, overall patient was at high risk of respiratory morbidity. Overnight on 10/31/2024 patient's respiratory status continued to decline necessitating BiPAP ventilation. Eventually given patient's overall deconditioning, poor nourihment status, severe kyphosis and respiratory comorbidities family elected to proceed with comfort care management. Patient on comfort care management on November 01, 2024 at 11:40 AM Discharge Plan Discharge Patient Disposition: Condition: DS Attestations Time Spent in /Discharge Care*: greater than 30 min Quality - AMI: AMI present?: No Quality - Stroke: CVA present?: No Symptom Onset Unknown: No Quality - VTE: VTE present?: No Deep Vein Thrombosis/Pulmonary Embolism Present on Admission: No Coding Level of Care Code Acute Code for [facility] Fwd Diagnoses Acute respiratory failure with hypoxia J96.01 Community acquired pneumonia J18.9 Compression fracture of T10 vertebra S22.070A Encounter type: initial encounter Compressive atelectasis J98.11 Acute exacerbation of chronic obstructive pulmonary disease (COPD) J44.1 ASHD (arteriosclerotic heart disease) I25.10
[2024-11-03 12:51] LABS: Vit D 1,25 (Oh)2, Total 31 pg/mL (18-72); Vit D2 1,25 (Oh)2 <8 pg/mL; Vit D3 1,25 (Oh)2 31 pg/mL
== END 2024-11-01 12:30 | disposition expired | DRG 193 ==
LOC: ER 09:30 → MEDSURG 12:58
PROVIDERS: Admitting Provider Internal Medicine; Emergency Provider Emergency Medicine; PCP Family Medicine; Visit Provider Student in an Organized Health Care Education/Training Program
DX: J18.9 Pneumonia, unspecified organism (principal); J96.01 Acute respiratory failure with hypoxia; S22.070A Wedge compression fracture of T9-T10 vertebra, initial encounter for closed fracture; J44.0 Chronic obstructive pulmonary disease with (acute) lower respiratory infection; J44.1 Chronic obstructive pulmonary disease with (acute) exacerbation; S27.9XXA Injury of unspecified intrathoracic organ, initial encounter; J98.11 Atelectasis; X58.XXXA Exposure to other specified factors, initial encounter; I25.10 Atherosclerotic heart disease of native coronary artery without angina pectoris; M41.9 Scoliosis, unspecified; I73.9 Peripheral vascular disease, unspecified; G89.29 Other chronic pain; I10 Essential (primary) hypertension; E03.9 Hypothyroidism, unspecified; Z99.81 Dependence on supplemental oxygen; Z95.5 Presence of coronary angioplasty implant and graft; Z85.820 Personal history of malignant melanoma of skin; Z87.891 Personal history of nicotine dependence
CPT/HCPCS: 36415; 36416; 36600; 71045; 80048; 80053; 82652; 82803; 82805; 82962; 83735; 83880; 84100; 85025; 87040; 93005; 93308; 94640; 94660; 94664; 96365; 96372; 96375; 97162; 97167; 99285; J0456; J0696; J1650; J1938; J2060; J2270; J2919; J3480; J7050; J7613; J7626; J9999; Q0144